=== PATIENT | female | born 1935 | race Caucasian/White ===

== ENCOUNTER → 2017-09-17 | Outpatient (CLI) | payer MEDICARE, BC | END | disposition home or self-care (01) | LOC: RADMAMWWP 16:36 | PROVIDERS: ATTEND Family Medicine | DX: Z53.9 Procedure and treatment not carried out, unspecified reason (principal) ==

== ENCOUNTER → 2017-10-29 | Outpatient (CLI) | payer MEDICARE, BC ==
--- NOTE | 2017-11-01 11:46 | MM ---
Reason for exam: screening (asymptomatic). Last mammogram was performed 2 years ago. History: Patient is postmenopausal. Family history of breast cancer in daughter at age 49. Physical Findings: A clinical breast exam by your physician is recommended on an annual basis and results should be correlated with mammographic findings. MG 3D Screening Mammo W/Cad Bilateral CC and MLO view(s) were taken. Prior study comparison: November 05, 2015, mammogram, performed at [facility]. April 11, 2014, mammogram, performed at [facility]. There are scattered fibroglandular densities. Nodular density upper outer left breast 6cm from nipple. ASSESSMENT: Incomplete: need additional imaging evaluation, BI-RAD 0 RECOMMENDATION: Special view mammogram of the left breast. If lesion persists on supplemental views, image directed ultrasound is recommended. [facility] will attempt to contact patient to return for supplemental views and ultrasound if indicated.
== END | disposition home or self-care (01) ==
LOC: RADMAMWWP 12:56
PROVIDERS: ATTEND Family Medicine
DX: Z12.31 Encounter for screening mammogram for malignant neoplasm of breast (principal)
CPT/HCPCS: 77063; 77067

== ENCOUNTER → 2017-11-04 | Outpatient (CLI) | payer MEDICARE, BC ==
--- NOTE | 2017-11-04 15:00 | MM ---
Reason for exam: additional evaluation requested from abnormal screening. Last mammogram was performed less than 1 month ago. History: Patient is postmenopausal. Family history of breast cancer in daughter at age 49. Physical Findings: Nurse did not find any significant physical abnormalities on exam. MG 3D Work Up W/Cad LT Spot compression CC, spot compression MLO, and ML view(s) were taken of the left breast. Prior study comparison: October 29, 2017, bilateral MG 3d screening mammo w/cad. November 05, 2015, mammogram, performed at [facility]. There are scattered fibroglandular densities. No persistent suspicious density on compression in ML views. No significant new findings when compared with previous films. These results were verbally communicated with the patient and result sheet given to the patient on 11/04/17. ASSESSMENT: Benign, BI-RAD 2 RECOMMENDATION: Return to routine screening mammogram schedule for both breasts.
== END | disposition home or self-care (01) ==
LOC: RADMAMWWP 12:42
PROVIDERS: ATTEND Family Medicine
DX: R92.8 Other abnormal and inconclusive findings on diagnostic imaging of breast (principal)
CPT/HCPCS: 77065; G0279

== ENCOUNTER → 2019-01-02 | Outpatient (CLI) | payer MEDICARE, BC ==
--- NOTE | 2019-01-03 09:29 | MM ---
Reason for exam: screening (asymptomatic). Last mammogram was performed 1 year and 2 months ago. History: Patient is postmenopausal. Family history of breast cancer in daughter at age 49. Physical Findings: A clinical breast exam by your physician is recommended on an annual basis and results should be correlated with mammographic findings. MG 3D Screening Mammo W/Cad Bilateral CC and MLO view(s) were taken. Prior study comparison: November 04, 2017, left breast MG 3d work up w/cad LT. October 29, 2017, bilateral MG 3d screening mammo w/cad. The breast tissue is heterogeneously dense. This may lower the sensitivity of mammography. Stable vascular calcifications. There is no discrete abnormality. No significant changes when compared with prior studies. ASSESSMENT: Benign, BI-RAD 2 RECOMMENDATION: Routine screening mammogram of both breasts in 1 year.
== END | disposition home or self-care (01) ==
LOC: RADMAMWWP 14:11
PROVIDERS: ATTEND Family Medicine
DX: Z12.31 Encounter for screening mammogram for malignant neoplasm of breast (principal)
CPT/HCPCS: 77063; 77067

== ENCOUNTER 2020-08-22 14:07 | Inpatient (IN) | payer MEDICARE, BC ==
[2020-08-22] MEDS ORDERED: HYDROmorphone 0.5 MG/0.5 ML SYRINGE IVP STA ×2 (14:30→16:15)
[2020-08-22] MEDS ORDERED: ONDANSETRON 4 MG/2 ML VIAL IVP STA (14:30)
--- NOTE | 2020-08-22 14:34 | ED ---
General Adult HPI - General Chief complaint: Fall Stated complaint: Fall/Hip Fracture Time Seen by Provider: 08/22/20 14:12 Source: patient, EMS, RN notes reviewed Mode of arrival: EMS Limitations: no limitations - History of Present Illness Initial comments: 85-year-old female without significant past medical history presents to the emergency room for a chief complaint of fall. Patient tripped over the edge of a rug and fell onto her right side. Patient does not recall hitting her head and denies neck pain but is in a c-collar. Patient is complaining of right upper leg and right upper arm pain. States she cannot move her arm or leg secondary to this pain. Patient denies any back pain.Patient has no other complaints at this time including shortness of breath, chest pain, abdominal pain, nausea or vomiting, headache, or visual changes. - Related Data Home Medications Medication Instructions Recorded Confirmed ALPRAZolam [Xanax] 0.5 mg PO HS 08/22/20 08/22/20 Ascorbic Acid [Vitamin C] 1,000 mg PO HS 08/22/20 08/22/20 Aspirin EC [Ecotrin Low Dose] 81 mg PO HS 08/22/20 08/22/20 Calcium Carbonate [Calcium] 600 mg PO HS 08/22/20 08/22/20 NIFEdipine XL [Procardia Xl] 30 mg PO HS 08/22/20 08/22/20 [place]-3 Fatty Acids/Fish Oil [Fish 1 cap PO HS 08/22/20 08/22/20 Oil 1,000 mg Softgel] Omeprazole 20 mg PO HS 08/22/20 08/22/20 Simvastatin [Zocor] 20 mg PO HS 08/22/20 08/22/20 Allergies Allergy/AdvReac Type Severity Reaction Status Date / Time No Known Allergies Allergy Verified 08/22/20 16:08 Review of Systems ROS Statement: Those systems with pertinent positive or pertinent negative responses have been documented in the HPI. ROS Other: All systems not noted in ROS Statement are negative. Past Medical History Past Medical History: No Reported History Additional Past Surgical History / Comment(s): R/L eye cataract surgery Smoking Status: Never smoker Past Alcohol Use History: None Reported Past Drug Use History: None Reported General Exam - General Exam Comments Initial Comments: Right upper extremity: Patient unable to move shoulder secondary to pain but is able to move all digits of the right hand. Tenderness noted to the mid humeral area. Radial pulse 2+, capillary refill less than 2 seconds. Sensation intact. Right lower extremity: Patient has externally rotated shortened right leg, DP pulse 2+, capillary refill less than 2 seconds, sensation intact right lower extremity. Patient unable to move right hip secondary to pain. She is able to move all digits. Limitations: no limitations General appearance: alert, in no apparent distress Head exam: Present: atraumatic, normocephalic, normal inspection Eye exam: Present: normal appearance, PERRL, EOMI. Absent: scleral icterus, conjunctival injection, periorbital swelling ENT exam: Present: normal exam, mucous membranes moist Neck exam: Present: normal inspection. Absent: tenderness, meningismus, lymphadenopathy Respiratory exam: Present: normal lung sounds bilaterally. Absent: respiratory distress, wheezes, rales, rhonchi, stridor Cardiovascular Exam: Present: regular rate, normal rhythm, normal heart sounds. Absent: systolic murmur, diastolic murmur, rubs, gallop, clicks GI/Abdominal exam: Present: soft, normal bowel sounds. Absent: distended, tenderness, guarding, rebound, rigid Neurological exam: Present: alert, oriented X3, other (GCS 15) Course Vital Signs 08/22/20 08/22/20 14:17 15:22 Temperature 97.1 F L Pulse Rate 60 Respiratory 16 18 Rate Blood Pressure 139/67 O2 Sat by Pulse 97 Oximetry Medical Decision Making - Medical Decision Making Vitals stable. She complains of pain in the right hip and shoulder. Obvious deformities noted on exam. Neurovascular status intact. CT brain shows no acute intercranial hemorrhage or shift. CT cervical spine shows no acute fracture or dislocation. C-spine was cleared. X-ray of the right shoulder shows acute comminuted minimally displaced fracture surgical neck right proximal humerus with glenohumeral joint dislocation. Hip and pelvis x-ray show acute displaced impacted intertrochanteric fracture right proximal femur. Chest x-ray shows no evident pneumothorax or pleural effusion. Labs were added as well as EKG. I discussed this case with miles MIGUEL who accepts admission under Dr. Silva. Rest nothing by mouth after midnight and Duran catheter initiation. Requests CT of the shoulder. I did change this order to the right shoulder. Requests medical consult for clearance. CBC CMP unremarkable. White cell count of 15 is likely reactive. - Lab Data Result diagrams: 08/22/20 16:09 08/22/20 16:09 Lab Results 08/22/20 08/22/20 08/22/20 Range/Units 16:09 16:09 16:23 WBC 15.0 H (3.8-10.6) k/uL RBC 4.31 (3.80-5.40) m/uL Hgb 12.6 (11.4-16.0) gm/dL Hct 40.3 (34.0-46.0) % MCV 93.5 (80.0-100.0) fL MCH 29.3 (25.0-35.0) pg MCHC 31.4 (31.0-37.0) g/dL RDW 13.7 (11.5-15.5) % Plt Count 297 (150-450) k/uL MPV 8.6 Neutrophils % 86 % Lymphocytes % 10 % Monocytes % 3 % Eosinophils % 1 % Basophils % 0 % Neutrophils # 12.8 H (1.3-7.7) k/uL Lymphocytes # 1.5 (1.0-4.8) k/uL Monocytes # 0.5 (0-1.0) k/uL Eosinophils # 0.1 (0-0.7) k/uL Basophils # 0.0 (0-0.2) k/uL PT 10.0 (9.0-12.0) sec INR 1.0 (<1.2) APTT 23.0 (22.0-30.0) sec Sodium 137 (137-145) mmol/L Potassium 4.3 (3.5-5.1) mmol/L Chloride 107 (98-107) mmol/L Carbon Dioxide 20 L (22-30) mmol/L Anion Gap 10 mmol/L BUN 13 (7-17) mg/dL Creatinine 0.53 (0.52-1.04) mg/dL Est GFR (CKD-EPI)AfAm >90 (>60 ml/min/1.73 sqM) Est GFR (CKD-EPI)NonAf 86 (>60 ml/min/1.73 sqM) Glucose 138 H (74-99) mg/dL Calcium 9.2 (8.4-10.2) mg/dL Total Bilirubin 0.6 (0.2-1.3) mg/dL AST 26 (14-36) U/L ALT 13 (4-34) U/L Alkaline Phosphatase 127 H (38-126) U/L Total Protein 6.8 (6.3-8.2) g/dL Albumin 3.9 (3.5-5.0) g/dL Disposition Clinical Impression: Hip fracture, Shoulder fracture, Shoulder dislocation Disposition: ADMITTED IP TO THIS HOSP Is patient prescribed a controlled substance at d/c from ED?: No Referrals: China Ramírez MD [Primary Care Provider] - 1-2 days Time of Disposition: 16:47
--- NOTE | 2020-08-22 15:39 | XR ---
EXAMINATION TYPE: XR Hip RT and AP Pelvis, XR femur RT DATE OF EXAM: 08/22/2020 COMPARISON: NONE HISTORY: Fall injury with pain. TECHNIQUE: A single AP view of the pelvis is obtained. Two views of the right hip and femur are obtai ortiz. FINDINGS: [place] osseous structures are demineralized. There is acute comminuted impacted displaced i ntertrochanteric fracture of the right proximal femur. Large fracture fragment involving the lesser t rochanter is noted. No additional acute fracture or dislocation is seen distally. Incidental tricompa rtment degenerative changes in the right knee with severe medial narrowing. Hip joints show moderate axial joint space loss bilaterally. No dislocation. Scattered bilateral pelv ic phleboliths. Pubic symphysis is intact. Sacroiliac joints are preserved. IMPRESSION: There is acute displaced impacted intertrochanteric fracture right proximal femur. (Initial encounter closed type posttraumatic fracture)
--- NOTE | 2020-08-22 15:42 | XR ---
EXAMINATION TYPE: XR chest 1V portable DATE OF EXAM: 08/22/2020 COMPARISON: None HISTORY: Cough, trauma TECHNIQUE: Single frontal view of the chest is obtained. FINDINGS: Patient is rotated. Exam is expiratory. Retrocardiac lucency suggestive of partial intrath oracic stomach. Aorta is dense. Heart size is likely normal. No evident pneumothorax or pleural effus ion. Fracture or dislocation is present in the right shoulder. IMPRESSION: Expiratory rotated exam. Fracture dislocation of the right shoulder. Hiatal hernia.
--- NOTE | 2020-08-22 15:42 | XR ---
EXAMINATION TYPE: XR humerus RT DATE OF EXAM: 08/22/2020 CLINICAL HISTORY: Pain after fall injury today. TECHNIQUE: Two views of the right humerus are attempted. COMPARISON: None. FINDINGS: [place] osseous structures are demineralized. There is acute comminuted slightly displaced fracture through the surgical neck right proximal humerus. There is glenohumeral joint dislocation. The acromioclavicular joint is maintained. Visualized ribs are intact. Overlying blanket material is present. IMPRESSION: There is acute comminuted minimally displaced fracture surgical neck right proximal humer us. There is glenohumeral joint dislocation noted.
--- NOTE | 2020-08-22 15:45 | CT ---
EXAMINATION TYPE: CT brain stevanine wo con DATE OF EXAM: 08/22/2020 COMPARISON: NONE HISTORY: Fall injury with headache and neck pain. CT DLP: 1248 mGycm. Automated Exposure Control for Dose Reduction was Utilized. TECHNIQUE: CT scan of the head and cervical spine are performed without contrast. FINDINGS: There is no acute intracranial hemorrhage or midline shift identified. [id number] D iffuse ventricular and sulcal prominence. Mild to moderate Low attenuation in the deep and periventri cular white matter. The calvarium is intact. The globes are intact and the visualized sinuses are ac ar. Cervical spine is visualized in its entirety from C1 through upper thoracic levels and demonstrates s atisfactory alignment without evidence of acute fracture or dislocation. Prevertebral soft tissue ap pears within normal limits. The C1-C2 articulation is within normal limits on the coronal images. Os seous structures are demineralized. Moderate disc space narrowing C5-C6 and C6-C7 levels. Vertebral b [place] are maintained. Spinal canal grossly preserved. Thyroid gland felt within normal limits. Lung apices show no pneumothorax. IMPRESSION: 1. There is no acute fracture or dislocation evident in the cervical spine. 2. No acute intracranial hemorrhage or midline shift is seen.
[2020-08-22 16:26] LABS: ALT 13 U/L (4-34); AST 26 U/L (14-36); African American GFR (CKD) >90 (>60 ml/min/1.73 sqM); Albumin 3.9 g/dL (3.5-5.0); Alkaline Phosphatase 127 U/L (38-126); Anion Gap 10 mmol/L; Basophils % (A) 0 %; Blood Urea Nitrogen 13 mg/dL (7-17); Calcium 9.2 mg/dL (8.4-10.2); Carbon Dioxide 20 mmol/L (22-30); Chloride 107 mmol/L (98-107); Eosinophils # (A) 0.1 k/uL (0-0.7); Eosinophils % (A) 1 %; Glucose 138 mg/dL (74-99); HCT 40.3 % (34.0-46.0); HGB 12.6 gm/dL (11.4-16.0); Lymphocytes # (A) 1.5 k/uL (1.0-4.8); Lymphocytes % (A) 10 %; MCH 29.3 pg (25.0-35.0); MCHC 31.4 g/dL (31.0-37.0); MCV 93.5 fL (80.0-100.0); Mean Platelet Volume 8.6; Monocytes # (A) 0.5 k/uL (0-1.0); Monocytes % (A) 3 %; Neutrophils # (A) 12.8 k/uL (1.3-7.7); Neutrophils % (A) 86 %; Non-African American GFR(CKD) 86 (>60 ml/min/1.73 sqM); Platelet Count 297 k/uL (150-450); Potassium 4.3 mmol/L (3.5-5.1); RBC 4.31 m/uL (3.80-5.40); RDW 13.7 % (11.5-15.5); Sodium 137 mmol/L (137-145); Total Bilirubin 0.6 mg/dL (0.2-1.3); Total Protein 6.8 g/dL (6.3-8.2)
[2020-08-22] MEDS ORDERED: NALOXONE 0.4 MG/ML 1 ML VIAL IV PRN (16:27)
[2020-08-22] MEDS ORDERED: ONDANSETRON 4 MG/2 ML VIAL IVP PRN (16:27)
[2020-08-22] MEDS: SODIUM CHLORIDE 0.9% 1,000 ML IV SCH (16:46)
--- NOTE | 2020-08-22 17:33 | CT ---
EXAMINATION TYPE: CT shoulder RT wo con DATE OF EXAM: 08/22/2020 COMPARISON: None HISTORY: RIGHT SHOULDER FX/DISLOCATION CT DLP: 305.2 mGycm Automated exposure control for dose reduction was used. Images were obtained from the base of the neck to the mid shaft of the humerus without contrast. There is impacted comminuted humeral neck fracture. There is anterior dislocation of the humeral head . The scapula appears intact. The AC joint is anatomic. The visualized right ribs appear intact. Ther e is 3 x 1.5 cm fluid collection superior to the humeral head that could be small hematoma. IMPRESSION: There is anterior inferior fracture dislocation of the humeral head. Small hematoma or joint effusion .
[2020-08-22] MEDS: HYDROmorphone 0.5 MG/0.5 ML SYRINGE IVP PRN ×2 (18:32→22:46)
[2020-08-23] MEDS: HYDROmorphone 0.5 MG/0.5 ML SYRINGE IVP PRN ×4 (01:55→13:51)
[2020-08-23] MEDS: SODIUM CHLORIDE 0.9% 1,000 ML IV SCH ×3 (05:46→21:53)
[2020-08-23 10:04] LABS: Basophils % (A) 0 %; Eosinophils % (A) 0 %; HCT 32.9 % (34.0-46.0); HGB 10.7 gm/dL (11.4-16.0); Lymphocytes # (A) 1.9 k/uL (1.0-4.8); Lymphocytes % (A) 16 %; MCH 31.1 pg (25.0-35.0); MCHC 32.6 g/dL (31.0-37.0); MCV 95.4 fL (80.0-100.0); Mean Platelet Volume 8.2; Monocytes # (A) 0.6 k/uL (0-1.0); Monocytes % (A) 6 %; Neutrophils # (A) 8.9 k/uL (1.3-7.7); Neutrophils % (A) 76 %; Platelet Count 230 k/uL (150-450); RBC 3.45 m/uL (3.80-5.40); RDW 13.5 % (11.5-15.5); WBC 11.6 k/uL (3.8-10.6)
[2020-08-23] MEDS ORDERED: ATORVASTATIN 20 MG TAB PO STA ×2 (10:13)
--- NOTE | 2020-08-23 10:51 | P.HPOR ---
History of Present Illness H&P Date: 08/23/20 Chief Complaint: Displaced and comminuted right intertrochanteric femur fracture Patient is an 85-year-old female who presented to [facility] yesterday after sustaining a fall. Patient was ambulating in her own home, she tripped over a rug and fell directly onto the right side. She was unable to weight-bear, EMS to bring the patient to the hospital. Upon arrival to the hospital, imaging and lab tests were done. Images demonstrated a displaced and comminuted right intertrochanteric femur fracture along with a displaced and comminuted right proximal humerus fracture with glenohumeral joint dislocation. I discussed the case with my attending Dr. Tejas valero and then discussed with the emergency room staff. Patient was admitted under our care with plan for surgical intervention. A computed tomography scan of the right shoulder was obtained. Patient was made nothing by mouth last night along with preop labs. Patient was evaluated today at bedside, she is resting comfortably given the circumstances. She notes most of discomfort in the shoulder and in the right lower extremity when she moves. She's having no acute pain involving the cervical, thoracic or lumbar spine. She denies any pain of the left upper extremity and the left lower extremity. She denies any paresthesias of the bilateral upper or lower extremities. She has no headaches, lightheadedness, chest pain, shortness of breath, fever, chills, nausea or vomiting. Patient is very independent her age, she does utilize a cane when ambulating. She does live alone, she continues to drive on a daily basis. Review of Systems Constitutional: Reports as per HPI Past Medical History Past Medical History: No Reported History History of Any Multi-Drug Resistant Organisms: None Reported Additional Past Surgical History / Comment(s): R/L eye cataract surgery Smoking Status: Never smoker Past Alcohol Use History: None Reported Past Drug Use History: None Reported Medications and Allergies Home Medications Medication Instructions Recorded Confirmed Type ALPRAZolam [Xanax] 0.5 mg PO HS 08/22/20 08/22/20 History Ascorbic Acid [Vitamin C] 1,000 mg PO HS 08/22/20 08/22/20 History Aspirin EC [Ecotrin Low Dose] 81 mg PO HS 08/22/20 08/22/20 History Calcium Carbonate [Calcium] 600 mg PO HS 08/22/20 08/22/20 History NIFEdipine XL [Procardia Xl] 30 mg PO HS 08/22/20 08/22/20 History [place]-3 Fatty Acids/Fish Oil [Fish 1 cap PO HS 08/22/20 08/22/20 History Oil 1,000 mg Softgel] Omeprazole 20 mg PO HS 08/22/20 08/22/20 History Simvastatin [Zocor] 20 mg PO HS 08/22/20 08/22/20 History Allergies Allergy/AdvReac Type Severity Reaction Status Date / Time No Known Allergies Allergy Verified 08/22/20 16:08 Physical Examination Right lower extremity: No obvious open lesions or sores are visualized throughout the extremity, no significant areas of erythema or soft tissue swelling There is obvious shortening along with external rotation and flexion at the knee and right lower extremity was compared to the contralateral side Logroll maneuver reproduces significant pain, she is unable to straight leg raise Strength testing was not assessed lower extremity Plantar flexion, dorsiflexion, EHL, FHL are intact. The calf is soft, there is no tenderness with palpation, dorsalis pedis pulses 2+ Right upper extremity: Obvious soft tissue swelling and bruising noted throughout the anterior aspect of the shoulder which does trend down into the arm along the medial side There are no open lesions visualized Range of motion was not assessed of the right shoulder or elbow She is able to extend and flex the wrist with minimal difficulty, she go all the fingers and make a fist Her sensory exam light touch throughout the extremity is intact Her radial and ulnar pulses are 2+ Results - Labs Labs: Abnormal Lab Results - Last 24 Hours (Table) 08/22/20 08/22/20 08/23/20 Range/Units 16:09 16:09 09:43 WBC 15.0 H 11.6 H (3.8-10.6) k/uL RBC 3.45 L (3.80-5.40) m/uL Hgb 10.7 L (11.4-16.0) gm/dL Hct 32.9 L (34.0-46.0) % Neutrophils # 12.8 H 8.9 H (1.3-7.7) k/uL Carbon Dioxide 20 L (22-30) mmol/L Glucose 138 H (74-99) mg/dL Alkaline Phosphatase 127 H (38-126) U/L H & H 08/22/20 08/23/20 Range/Units 16:09 09:43 Hgb 12.6 10.7 L (11.4-16.0) gm/dL Hct 40.3 32.9 L (34.0-46.0) % Coagulation 08/22/20 Range/Units 16:23 INR 1.0 (<1.2) Result Diagrams: 08/23/20 09:43 08/22/20 16:09 - Diagnostic results Shoulder x-ray: report reviewed, image reviewed Shoulder CT: report reviewed (Images reviewed of the shoulder, this including x- rays and computed tomography scan. Images demonstrated a four-part displaced proximal humerus fracture with glenoid humeral joint dislocation. X-rays of the right hip do demonstrate a displaced and comminuted right intertrochanteric femur fracture.), image reviewed Hip x-ray: report reviewed, image reviewed Assessment and Plan Assessment: Comminuted and displaced right intertrochanteric femur fracture Comminuted and displaced right proximal humerus fracture with glenohumeral joint dislocation Status post fall from standing Plan: I was able to discuss the case, including with physical exam findings and imaging studies my attending Dr. Silva. Plan is to proceed with surgical intervention, more specifically a long intramedullary nail right femur. We will also attempt a closed reduction of the right shoulder with C-arm assistance while the patient is under anesthesia. I did discuss the patient the treatment options for both the right femur fracture and a right humerus fracture. She is in good understanding that there may be more required surgery for the right upper extremity if the joint does not relocate properly. Even with a proper reduction, there may be need for further surgery of the right shoulder depending on the patient's symptoms. At this time we will first focused on the fracture of the right femur. Risk and benefits of the procedure involving the right femur were discussed at bedside today, this to include but not exclude infection, blood loss, neurovascular injury, developmental blood clots, and adequate healing of bone, need for further surgery, pain and stiffness patient is in good understanding like to proceed Continue nothing by mouth at this time Pain control, continue supportive oral and IV medication as needed DVT prophylaxis,subcutaneous medication after surgery Nonweightbearing at this time Medical recommendations Physical therapy evaluation after surgery Arm sling for the right upper extremity at this time and after surgery Further recommendations to follow Time with Patient: Less than 30
--- NOTE | 2020-08-23 11:33 | P.CONS ---
History of Present Illness - Reason for Consult Consult date: 08/23/20 Medical management Requesting physician: Hunter Silva - History of Present Illness This is an 85-year-old female patient of Dr. Ramírez. Patient presented to the ER after sustaining a fall. Patient reports she tripped over a rug and likely her son was home and was able to call EMS for assistance. Upon arrival is on patient had displaced impacted intertrochanteric fracture of the right femur and acute community minimally displaced fracture of the surgical neck right proximal humerus. Patient has been admitted to orthopedic services and plans for surgical intervention today. Patient has a past medical history of GERD, hyperlipidemia and patient reports she had elevated heart rate and when she was started on Procardia and follows regularly with cardiology services denies any history of atrial fibrillation, OH, CVA, COPD or asthma. Cardiac he services have been consulted for medical clearance prior to surgery. Patient's white blood cell also elevated on admit 15.0. This is likely reactive to the fracture. Patient denies any acute complaints. Afebrile. Chest x-ray was completed showing expiratory rotated exam no evident pneumothorax or pleural effusion. Will order UA to rule out any infection. White blood cell improving to 11.0. Upon exam patient does complain of discomfort to right hip and shoulder. Patient denies any chest pain or shortness of breath. Patient denies nausea vomiting or diarrhea. Patient denies any urinary burning or frequency. Review of Systems please refer to HPI otherwise unremarkable Past Medical History Past Medical History: No Reported History History of Any Multi-Drug Resistant Organisms: None Reported Additional Past Surgical History / Comment(s): R/L eye cataract surgery Smoking Status: Never smoker Past Alcohol Use History: None Reported Past Drug Use History: None Reported Medications and Allergies Home Medications Medication Instructions Recorded Confirmed Type ALPRAZolam [Xanax] 0.5 mg PO HS 08/22/20 08/22/20 History Ascorbic Acid [Vitamin C] 1,000 mg PO HS 08/22/20 08/22/20 History Aspirin EC [Ecotrin Low Dose] 81 mg PO HS 08/22/20 08/22/20 History Calcium Carbonate [Calcium] 600 mg PO HS 08/22/20 08/22/20 History NIFEdipine XL [Procardia Xl] 30 mg PO HS 08/22/20 08/22/20 History [place]-3 Fatty Acids/Fish Oil [Fish 1 cap PO HS 08/22/20 08/22/20 History Oil 1,000 mg Softgel] Omeprazole 20 mg PO HS 08/22/20 08/22/20 History Simvastatin [Zocor] 20 mg PO HS 08/22/20 08/22/20 History Allergies Allergy/AdvReac Type Severity Reaction Status Date / Time No Known Allergies Allergy Verified 08/22/20 16:08 Physical Exam Vitals: Vital Signs Temp Pulse Pulse Resp BP BP Pulse Ox 08/23/20 05:21 97.5 F L 72 16 120/65 94 L 08/23/20 00:00 16 08/22/20 22:13 97.3 F L 64 16 134/81 94 L 08/22/20 18:00 61 18 167/72 100 08/22/20 17:00 61 18 166/74 100 08/22/20 16:00 18 08/22/20 15:22 18 08/22/20 14:17 97.1 F L 60 16 139/67 97 Intake and Output 08/22/20 08/23/20 08/23/20 22:59 06:59 14:59 Intake Total 1340 Output Total 300 500 Balance -300 840 Intake: Intake, IV Titration 800 Amount Sodium Chloride 0.9% 1, 800 000 ml @ 100 mls/hr IV . Q10H COUNTS INCLUDE 234 BEDS AT THE [facility] Rx#:[id number] Oral 540 Output: Urine 300 500 Uretheral (Duran) 300 500 Other: Voiding Method Indwelling Catheter Indwelling Catheter Weight 61.781 kg Head normocephalic Neck supple Lungs clear to auscultation bilaterally no wheezing or crackles Heart regular rate and rhythm S1-S2, no rub or gallop Abdomen is soft nontender nondistended positive bowel sounds no hepatosplenomegaly Extremities no edema Neuro alert and orientated to 3 Results CBC & Chem 7: 08/23/20 09:43 08/22/20 16:09 Labs: Abnormal Lab Results - Last 24 Hours (Table) 08/22/20 08/22/20 08/23/20 Range/Units 16:09 16:09 09:43 WBC 15.0 H 11.6 H (3.8-10.6) k/uL RBC 3.45 L (3.80-5.40) m/uL Hgb 10.7 L (11.4-16.0) gm/dL Hct 32.9 L (34.0-46.0) % Neutrophils # 12.8 H 8.9 H (1.3-7.7) k/uL Carbon Dioxide 20 L (22-30) mmol/L Glucose 138 H (74-99) mg/dL Alkaline Phosphatase 127 H (38-126) U/L Assessment and Plan Assessment: 1. Status post fall with right hip fracture. Plans for surgical intervention today per orthopedic services 2. Fracture of the right humerus and dislocation of right shoulder. Orthopedic services are following 3. History of elevated heart rate. Patient is maintained on Procardia. Cardiology services have been consulted for cardiac clearance 4. History of hyperlipidemia. Maintained on statin 5. History of GERD maintained on Protonix 6. Elevated white blood cell. White blood cell on admit 15.5 this is likely reactive. Patient denies any acute complaints. Chest x-ray has been completed. UA ordered. With blood cell improving to 11.0. Afebrile Thank you for this consultation we'll continue to follow patient closely throughout stay Cardiology services have been consulted for cardiac clearance Time with Patient: Greater than 30 (Greater than 60% of the total time spent in counseling and coordination of care)
--- NOTE | 2020-08-23 11:50 | P.CRDCN ---
History of Present Illness Consult date: 08/23/20 History of present illness: CHIEF COMPLAINT: Cardiac clearance HISTORY OF PRESENT ILLNESS: This is a 85-year old female with a past medical history significant for GERD, hypertension, and hyperlipidemia, Patient follows in the office with Dr. Vicente. We have been asked to see the patient in consultation for cardiac clearance. Patient presented to the hospital after she sustained a fall at home. She was diagnosed with a right hip fracture. She is scheduled to undergo surgical intervention today with orthopedics. Patient examined this morning at the bedside. She denies chest pain or pressure. She denies shortness of breath. Denies dizziness or lightheadedness. Patient states she is able to lay flat without any shortness of breath. She had an echocardiogram completed in the office on 07/30/2020 revealing ejection fraction of 55%, moderate aortic regurgitation, moderate mitral regurgitation, and moderate tricuspid regurgitation. DIAGNOSTICS: EKG reveals sinus bradycardia with T-wave inversions in inferior leads Chest xray fracture dislocation of the right shoulder. Hiatal hernia. Laboratory data: CBC 11.6. Hemoglobin 10.7. Platelet count 230. Sodium 137. Potassium 4.3. BUN 13. Creatinine 0.53. Current home cardiac medications include atorvastatin 10 mg daily, Procardia 30 mg daily, and aspirin 81 mg daily REVIEW OF SYSTEMS: At the time of my exam: CONSTITUTIONAL: Denies fever or chills. HEENT: Denies blurred vision, vision changes, or eye pain. Denies hemoptysis CARDIOVASCULAR: Denies chest pain, orthopnea, PND or palpitations RESPIRATORY: No shortness of breath. GASTROINTESTINAL: Denies abdominal pain. Denies nausea or vomiting. HEMATOLOGIC: Denies bleeding disorders. GENITOURINARY: Denies any blood in urine. SKIN: Denies pruitis. Denies rash. PHYSICAL EXAM: VITAL SIGNS: Reviewed. GENERAL: Well-developed in no acute distress. HEENT: Head is normocephalic. Pupils are equal, round. Sclerae anicteric. Mucous membranes of the mouth are moist. Neck supple. No JVD or thyromegaly LUNGS: Respirations even and unlabored. Lungs essentially clear to auscultation bilaterally. HEART: Regular rate and rhythm. S1 and S2 heard. Systolic murmur noted ABDOMEN: Soft. Nondistended. Nontender. EXTREMITIES: No clubbing or cyanosis. Peripheral pulses intact. No lower extremity edema NEUROLOGIC: Awake and alert. Oriented x 3. ASSESSMENT: Right hip fracture, status post fall Right humerus fracture and right shoulder dislocation Valvular heart disease: Moderate aortic regurgitation, moderate mitral regurgitation, and moderate tricuspid regurgitation Hypertension Hyperlipidemia GERD PLAN: Recent echocardiogram completed on an outpatient basis reviewed Increase atorvastatin to 20mg daily. Give dose now prior to surgery Discontinue Procardia Begin Norvasc 5 mg daily Patient has no symptoms of angina and has no evidence of congestive heart failure. She has no absolute contraindications to undergo surgery today with orthopedics for her hip fracture. Nurse practitioner note has been reviewed by physician. Signing provider agrees with the documented findings, assessment, and plan of care. Past Medical History Past Medical History: No Reported History History of Any Multi-Drug Resistant Organisms: None Reported Additional Past Surgical History / Comment(s): R/L eye cataract surgery Smoking Status: Never smoker Past Alcohol Use History: None Reported Past Drug Use History: None Reported Medications and Allergies Home Medications Medication Instructions Recorded Confirmed Type ALPRAZolam [Xanax] 0.5 mg PO HS 08/22/20 08/22/20 History Ascorbic Acid [Vitamin C] 1,000 mg PO HS 08/22/20 08/22/20 History Aspirin EC [Ecotrin Low Dose] 81 mg PO HS 08/22/20 08/22/20 History Calcium Carbonate [Calcium] 600 mg PO HS 08/22/20 08/22/20 History NIFEdipine XL [Procardia Xl] 30 mg PO HS 08/22/20 08/22/20 History [place]-3 Fatty Acids/Fish Oil [Fish 1 cap PO HS 08/22/20 08/22/20 History Oil 1,000 mg Softgel] Omeprazole 20 mg PO HS 08/22/20 08/22/20 History Simvastatin [Zocor] 20 mg PO HS 08/22/20 08/22/20 History Allergies Allergy/AdvReac Type Severity Reaction Status Date / Time No Known Allergies Allergy Verified 08/22/20 16:08 Physical Exam Vitals: Vital Signs Temp Pulse Pulse Resp BP BP Pulse Ox 08/23/20 05:21 97.5 F L 72 16 120/65 94 L 08/23/20 00:00 16 08/22/20 22:13 97.3 F L 64 16 134/81 94 L 08/22/20 18:00 61 18 167/72 100 08/22/20 17:00 61 18 166/74 100 08/22/20 16:00 18 08/22/20 15:22 18 08/22/20 14:17 97.1 F L 60 16 139/67 97 Intake and Output 08/22/20 08/23/20 08/23/20 22:59 06:59 14:59 Intake Total 1340 Output Total 300 500 Balance -300 840 Intake: Intake, IV Titration 800 Amount Sodium Chloride 0.9% 1, 800 000 ml @ 100 mls/hr IV . Q10H [facility] Rx#:[id number] Oral 540 Output: Urine 300 500 Uretheral (Duran) 300 500 Other: Voiding Method Indwelling Catheter Indwelling Catheter Weight 61.781 kg Results 08/23/20 09:43 08/22/20 16:09 Cardiac Enzymes 08/22/20 Range/Units 16:09 AST 26 (14-36) U/L Coagulation 08/22/20 Range/Units 16:23 PT 10.0 (9.0-12.0) sec APTT 23.0 (22.0-30.0) sec CBC 08/22/20 08/23/20 Range/Units 16:09 09:43 WBC 15.0 H 11.6 H (3.8-10.6) k/uL RBC 4.31 3.45 L (3.80-5.40) m/uL Hgb 12.6 10.7 L (11.4-16.0) gm/dL Hct 40.3 32.9 L (34.0-46.0) % Plt Count 297 230 (150-450) k/uL Comprehensive Metabolic Panel 08/22/20 Range/Units 16:09 Sodium 137 (137-145) mmol/L Potassium 4.3 (3.5-5.1) mmol/L Chloride 107 (98-107) mmol/L Carbon Dioxide 20 L (22-30) mmol/L BUN 13 (7-17) mg/dL Creatinine 0.53 (0.52-1.04) mg/dL Glucose 138 H (74-99) mg/dL Calcium 9.2 (8.4-10.2) mg/dL AST 26 (14-36) U/L ALT 13 (4-34) U/L Alkaline Phosphatase 127 H (38-126) U/L Total Protein 6.8 (6.3-8.2) g/dL Albumin 3.9 (3.5-5.0) g/dL Current Medications Generic Name Dose Route Start Last Admin Trade Name Freq PRN Reason Stop Dose Admin Alprazolam 0.5 mg 08/23/20 21:00 Alprazolam 0.5 Mg Tab PO HS [facility] Ascorbic Acid 1,000 mg 08/23/20 21:00 Ascorbic Acid 500 Mg Tab PO HS [facility] Aspirin 81 mg 08/23/20 21:00 Aspirin 81 Mg PO HS [facility] Atorvastatin Calcium 20 mg 08/24/20 21:00 Atorvastatin 20 Mg Tab PO HS [facility] Calcium Carbonate/Glycine 500 mg 08/23/20 21:00 Calcium Carbonate 500 Mg Chewable PO HS [facility] Hydromorphone HCl 0.5 mg 08/22/20 16:27 08/23/20 08:59 Hydromorphone 0.5 Mg/0.5 Ml Syringe IVP 0.5 mg Q3HR PRN Administration Moderate Pain Sodium Chloride 1,000 mls @ 100 mls/hr 08/22/20 16:30 08/23/20 05:46 Saline 0.9% IV Not Given .Q10H [facility] Naloxone HCl 0.2 mg 08/22/20 16:27 Naloxone 0.4 Mg/Ml 1 Ml Vial IV Q2M PRN Opioid Reversal Nifedipine 30 mg 08/23/20 21:00 Nifedipine Xl 30 Mg Tab.Er.24 PO HS [facility] Ondansetron HCl 4 mg 08/22/20 16:27 08/22/20 22:53 Ondansetron 4 Mg/2 Ml Vial IVP 4 mg Q8HR PRN Administration Nausea And Vomiting Pantoprazole Sodium 40 mg 08/23/20 21:00 Pantoprazole 40 Mg Tablet PO HS [facility] Intake and Output 08/22/20 08/23/20 08/23/20 22:59 06:59 14:59 Intake Total 1340 Output Total 300 500 Balance -300 840 Intake: Intake, IV Titration 800 Amount Sodium Chloride 0.9% 1, 800 000 ml @ 100 mls/hr IV . Q10H [facility] Rx#:[id number] Oral 540 Output: Urine 300 500 Uretheral (Duran) 300 500 Other: Voiding Method Indwelling Catheter Indwelling Catheter Weight 61.781 kg 08/23/20 09:43 08/22/20 16:09
[2020-08-23 13:33] LABS: Appearance,Urine Cloudy (Clear); Bilirubin,Urine Negative (Negative); Blood,Urine Large (Negative); Color,Urine Yellow; Glucose,Urine (UA) Negative (Negative); Hyaline Casts,Urine 24 /lpf (0-2); Ketones,Urine 2+ (Negative); Leukocyte Esterase,Urine Large (Negative); Mucus,Urine Many /hpf; Nitrite,Urine Negative (Negative); PH, Urine 5.5 (5.0-8.0); Protein,Urine Trace (Negative); RBC,Urine 128 /hpf (0-5); Specific Gravity,Urine 1.022 (1.001-1.035); Urobilinogen,Urine <2.0 mg/dL (<2.0); WBC,Urine 141 /hpf (0-5)
[2020-08-23] MEDS ORDERED: IV FLUID CONTINUATION 900 ML IV ONE (15:31)
[2020-08-23] MEDS ORDERED: DEXAMETHASONE SOD PHOSPHATE 4 MG/ML 1 ML VIAL IVP ONE (16:02)
[2020-08-23] MEDS ORDERED: ONDANSETRON 4 MG/2 ML VIAL IVP ONE (16:02)
[2020-08-23] MEDS ORDERED: ceFAZolin 1,000 MG VIAL ONE (17:50)
[2020-08-23] MEDS ORDERED: SUCCINYLCHOLINE CHLORIDE 100 MG/5 ML SYR IV ONE (17:50)
[2020-08-23] MEDS ORDERED: NEOSTIGMINE 1 MG/ML 10 ML VIAL ONE (17:50)
[2020-08-23] MEDS ORDERED: PROPOFOL 10 MG/ML 20 ML VIAL IV ONE (17:50)
[2020-08-23] MEDS ORDERED: SODIUM CHLORIDE 0.9% 50 ML with ceFAZolin 1,000 MG IV ONE ×2 (17:50)
[2020-08-23] MEDS ORDERED: SODIUM CHLORIDE 0.9% 100 ML BAG ONE (17:50)
[2020-08-23] MEDS ORDERED: GLYCOPYRROLATE 0.2 MG/ML 2 ML VIAL ONE (17:50)
[2020-08-23] MEDS ORDERED: fentaNYL (PF) 50 MCG/ML 2 ML AMP ONE (17:50)
[2020-08-23] MEDS ORDERED: ROCURONIUM 10 MG/ML (10 ML VIAL) IV ONE (17:50)
[2020-08-23 18:51] LABS: Albumin 3.7 g/dL (3.80-4.90); Albumin/Globulin Ratio 2.06 (1.60-3.17); Anion Gap 8.3 mmol/L (4.00-12.00); BUN/Creat Ratio 28.33 Ratio (12.00-20.00); Carbon Dioxide 23.7 mmol/L (21.6-31.8); Globulin 1.8 g/dL (1.6-3.3); Total Bilirubin 0.6 mg/dL (0.3-1.2); Total Protein 5.5 g/dL (6.2-8.2)
[2020-08-23] MEDS ORDERED: ceFAZolin 3,000 MG in SODIUM CHLORIDE 0.9% IRRIGATIO 3,000 ML IRRIGATION ONE (19:15)
[2020-08-23] MEDS ORDERED: LACTATED RINGERS 1,000 ML IV ONE (19:20)
[2020-08-23] MEDS ORDERED: MAGNESIUM HYDROXIDE 2,400 MG/10 ML CUP PO PRN (19:39)
[2020-08-23] MEDS ORDERED: HYDROcodone/APAP 5-325MG 1 EACH TAB PO PRN (19:39)
[2020-08-23] MEDS ORDERED: traMADol 50 MG TAB PO PRN (19:39)
[2020-08-23] MEDS ORDERED: ACETAMINOPHEN TAB 325 MG TAB PO PRN (19:39)
--- NOTE | 2020-08-23 19:39 | P.OP ---
Date of Procedure: 08/23/20 Preoperative Diagnosis: 1) Displaced right 4 part intertrochanteric femur fracture 2) 4 part fracture dislocation right proximal humerus Postoperative Diagnosis: Same Procedure(s) Performed: Trochanteric intramedullary nailing right four-part intertrochanteric femur fracture/closed reduction right four-part proximal humerus fracture/dislocation Implants: Gamma nail, 125, 13 mm x 36 cm, 105 mm compression screw Anesthesia: GETA Surgeon: Hunter Silva Senior Reactor Operator #1: Kiko Jama Estimated Blood Loss (ml): 200 Pathology: none sent Condition: stable Disposition: PACU Indications for Procedure: The patient's an 85-year-old female presents after falling injuring both her right shoulder and hip. Upon evaluation she was noted to have a fracture dislocation involving the right proximal humerus in addition to a comminuted /displaced 4 part right intertrochanteric femur fracture a discussion of the risks and benefits of operative intervention was made with patient and her family. She'll to proceed. Operative risks to include infection, neurovascular injury, development of blood clots, possible development of nonunion, possible development of malunion, possible need for subsequent procedures was discussed. Informed consent was obtained. Operative Findings: As below Description of Procedure: The patient was brought to the operating room, and after induction of general anesthesia was transferred to the Radha table. The right proximal humerus fracture/dislocation was gently reduced with longitudinal traction and manipulation. This is verified with fluoroscopy. A sling was placed. Attention was then paid towards preparing her right intertrochanteric femur fracture. The fracture was reduced with longitudinal traction and internal rotation of the right lower extremity. This is verified with fluoroscopy on the AP and lateral views. The right lower extremity was then prepped and draped in normal fashion. A 10 cm incision was then paid made proximal to the greater trochanter. Skin was incised sharply. Subcu tissues were divided sharply. The fascia was identified and was opened. Dissection was then made down to level the greater trochanter. A starting awl was used and the tip of the greater trochanter. A ball-tipped guidewire was then inserted with the aid of fluoroscopy. The canal was then reamed up to 15 mm. The proximal segment was reamed to 15.5 mm. A 13 mm x 36 cm Gamma trochanteric nail was then gently inserted. This had a 125 angle. The ball-tipped guidewire was removed. The threaded guidepin was then placed into the centercentral portion of the femoral head and neck on the AP and lateral views to within 5 mm the articular surface. A triple reamer was used to a depth of 100 mm. A 105 mm compression screw was inserted with good purchase. The locking screw was then inserted in the proximal portion of the nail. This was loosened one quarter turn to allow for compression. The proximal jig was then removed. Attention was then paid towards the distal locking screws. These were placed using a freehand technique with the aid of fluoroscopy. The appropriate length screws were inserted. Final fluoroscopic view showed adequate reduction of this complex/comminuted four-part intertrochanteric femur fracture with adequate implant placement. The wounds were irrigated normal saline. The fascia was closed with #1 running Vicryl suture. The subcutaneous tissues were reapproximated interrupted 2-0 Vicryl sutures. The skin was reprepped with elham. A sterile dressing was applied. The patient was then awoken from general anesthesia and transferred to recovery room in fair condition. Blood loss was estimated at 200 mL. No complications were incurred. Sponge and needle counts were correct in the case. Vasile MIGUEL assistance during the major components the case to include positioning, fracture reduction, implantation, and closure.
[2020-08-23] MEDS: fentaNYL (PF) 50 MCG/ML 2 ML AMP IVP ONE ×4 (19:46→20:15)
[2020-08-23] MEDS ORDERED: HYDROmorphone 0.5 MG/0.5 ML SYRINGE IVP ONE (20:23)
[2020-08-23] MEDS ORDERED: NIFEdipine XL 30 MG TAB.ER.24 PO SCH (21:00)
[2020-08-23] MEDS ORDERED: ATORVASTATIN 10 MG TAB PO SCH (21:00)
[2020-08-23] MEDS ORDERED: NON FORMULARY DRUG (Omega-3 Fatty Acids/Fish Oil [Fish Oil 1,000 Mg Softgel] 1 EACH Capsul PO SCH (21:00)
[2020-08-23] MEDS: ASPIRIN 81 MG PO SCH (21:52)
[2020-08-23] MEDS: ALPRAZolam 0.5 MG TAB PO SCH (21:52)
[2020-08-23] MEDS: PANTOPRAZOLE 40 MG TABLET PO SCH (21:52)
[2020-08-23] MEDS: ASCORBIC ACID 500 MG TAB PO SCH (21:52)
[2020-08-23] MEDS: SENNOSIDES-DOCUSATE SODIUM 1 EACH TAB PO SCH (21:52)
[2020-08-23] MEDS: CALCIUM CARBONATE 500 MG CHEWABLE PO SCH (21:52)
[2020-08-24] MEDS: HYDROcodone/APAP 5-325MG 1 EACH TAB PO PRN ×2 (06:35→15:38)
[2020-08-24] MEDS: SODIUM CHLORIDE 0.9% 1,000 ML IV SCH ×2 (07:50→17:24)
[2020-08-24 07:57] LABS: Basophils % (A) 0 %; Eosinophils % (A) 0 %; HCT 23.3 % (34.0-46.0); Hypochromasia Slight; Lymphocytes % (A) 12 %; MCH 29.7 pg (25.0-35.0); MCHC 31.1 g/dL (31.0-37.0); MCV 95.5 fL (80.0-100.0); Mean Platelet Volume 8.8; Monocytes # (A) 0.5 k/uL (0-1.0); Monocytes % (A) 6 %; Neutrophils # (A) 7.2 k/uL (1.3-7.7); Platelet Count 179 k/uL (150-450); RBC 2.44 m/uL (3.80-5.40); RDW 14.1 % (11.5-15.5); WBC 8.9 k/uL (3.8-10.6)
[2020-08-24 08:13] LABS: HGB 7.2 gm/dL (11.4-16.0)
[2020-08-24 08:15] LABS: Neutrophils % (A) 81 %
[2020-08-24] MEDS ORDERED: amLODIPine 5 MG TAB PO SCH (09:00)
--- NOTE | 2020-08-24 09:37 | P.PN ---
Subjective Progress Note Date: 08/24/20 Principal diagnosis: Status post IM nail right intertrochanteric femur fracture, closed reduction right shoulder Patient is evaluated today at bedside, she is resting comfortably. Physical therapy was in the room about to get her out of bed and into the chair. The urinary catheter is in place. She states the pain is tolerable at this time. She denies any headaches, lightheadedness, chest pain or shortness of breath. The 1 unit of packed RBCs that I ordered yesterday has not been given yet, hemoglobin did drop into the sevens overnight. This will be given as soon as p ossible today. Plan for recheck of hemoglobin on 08/25/2020. Objective - Vital Signs Vital signs: Vital Signs Temp 97.7 F 08/24/20 05:00 Pulse 87 08/24/20 05:00 Resp 16 08/24/20 05:00 BP 118/66 08/24/20 05:00 Pulse Ox 90 L 08/24/20 05:00 Intake & Output 08/23/20 08/24/20 08/24/20 18:59 06:59 18:59 Intake Total 1750 1191 Output Total 800 Balance 1750 391 Weight 61.781 kg Intake: IV 950 401 Sodium Chloride 0.9% 1, 100 000 ml @ 100 mls/hr IV . Q10H [facility] Rx#:[id number] Intake, IV Titration 800 Amount Sodium Chloride 0.9% 1, 800 000 ml @ 100 mls/hr IV . Q10H [facility] Rx#:[id number] Oral 790 Output: Urine 600 Uretheral (Duran) 300 Estimated Blood Loss 200 Other: Voiding Method Indwelling Catheter Indwelling Catheter - Exam Right upper extremity: Notable soft tissue swelling and bruising appreciated. She's utilizing the arm sling. Minimal external and internal rotation the shoulder reproduces no significant discomfort. Extension and flexion are intact at the wrist, she is able to wiggle all the fingers and make a fist. Range of motion of the elbow was not assessed. Sensation to light touch is intact throughout the extremity. Radial and ulnar pulses are 2+ Right lower extremity: Minimal soft tissue swelling present throughout the extremity. The foam dressings are in place over the 3 incisions, there is a small amount of dried blood on the proximal incision. Her sensation to light touch is intact throughout the extremity. Logroll maneuver reproduces minimal discomfort. Calf is soft, there is no tenderness with palpation. Plantar flexion, dorsiflexion, EHL, FHL are intact. Dorsalis pedis pulses 2+ - Labs CBC & Chem 7: 08/24/20 06:51 08/23/20 09:43 Labs: Abnormal Lab Results - Last 24 Hours (Table) 08/23/20 08/23/20 08/23/20 Range/Units 09:43 09:43 13:00 WBC 11.6 H (3.8-10.6) k/uL RBC 3.45 L (3.80-5.40) m/uL Hgb 10.7 L (11.4-16.0) gm/dL Hct 32.9 L (34.0-46.0) % Neutrophils # 8.9 H (1.3-7.7) k/uL BUN/Creatinine Ratio 28.33 H (12.00-20.00) Ratio Total Protein 5.5 L (6.2-8.2) g/dL Albumin 3.70 L (3.80-4.90) g/dL Urine Appearance Cloudy H (Clear) Urine Protein Trace H (Negative) Urine Ketones 2+ H (Negative) Urine Blood Large H (Negative) Ur Leukocyte Esterase Large H (Negative) Urine RBC 128 H (0-5) /hpf Urine WBC 141 H (0-5) /hpf Hyaline Casts 24 H (0-2) /lpf Urine Mucus Many H (None) /hpf Crossmatch 08/23/20 08/24/20 Range/Units 14:01 06:51 WBC (3.8-10.6) k/uL RBC 2.44 L (3.80-5.40) m/uL Hgb 7.2 L D (11.4-16.0) gm/dL Hct 23.3 L (34.0-46.0) % Neutrophils # (1.3-7.7) k/uL BUN/Creatinine Ratio (12.00-20.00) Ratio Total Protein (6.2-8.2) g/dL Albumin (3.80-4.90) g/dL Urine Appearance (Clear) Urine Protein (Negative) Urine Ketones (Negative) Urine Blood (Negative) Ur Leukocyte Esterase (Negative) Urine RBC (0-5) /hpf Urine WBC (0-5) /hpf Hyaline Casts (0-2) /lpf Urine Mucus (None) /hpf Crossmatch See Detail Microbiology - Last 24 Hours (Table) 08/23/20 13:00 Urine Culture - Preliminary Urine,Voided Assessment and Plan Assessment: Status post IM nail right femur fracture Status post closed reduction right shoulder dislocation, 4 part right proximal humerus fracture Acute blood loss anemia, expected surgical outcome Plan: Pain control, continue use of current medication DVT prophylaxis, continue subcu medication Give 1 unit of blood as soon as possible, recheck hemoglobin on 08/25/2020 Weight-bear as tolerated to right lower extremity, avoid any use of the right upper extremity Monitor bandages, okay daily dressing for 7 days if need be. We'll likely change for discharge Medical recommendations Further recommendations to follow Time with Patient: Less than 30
--- NOTE | 2020-08-24 10:17 | P.PN ---
Subjective Progress Note Date: 08/24/20 Principal diagnosis: Preoperative cardiac assessment This is a pleasant 85-year-old female patient who is known to have hypertension and dyslipidemia and we asked to see the patient yesterday as a consult for preoperative assessment before surgery. The patient diagnosed with right hip fracture and she underwent surgery yesterday. She was seen today. She is asymptomatic from a cardiovascular standpoint overview. Hemodynamically she is slightly hypotensive and because of that M going to decrease the dose of Norvasc to 2.5 mg by mouth daily. Also she is anemic but she is in process of receiving one unit of packed RBC. Objective - Vital Signs Vital signs: Vital Signs Temp 98.3 F 08/24/20 10:10 Pulse 92 08/24/20 10:10 Resp 16 08/24/20 10:10 BP 92/58 08/24/20 10:10 Pulse Ox 96 08/24/20 10:10 Intake & Output 08/23/20 08/24/20 08/24/20 18:59 06:59 18:59 Intake Total 1750 1191 0 Output Total 800 Balance 1750 391 0 Weight 61.781 kg Intake: IV 950 401 Sodium Chloride 0.9% 1, 100 000 ml @ 100 mls/hr IV . Q10H [facility] Rx#:[id number] Intake, IV Titration 800 Amount Sodium Chloride 0.9% 1, 800 000 ml @ 100 mls/hr IV . Q10H [facility] Rx#:[id number] Oral 790 Blood Product 0 Rc Pheresis 2 As3 Unit 0 [id number] Output: Urine 600 Uretheral (Duran) 300 Estimated Blood Loss 200 Other: Voiding Method Indwelling Catheter Indwelling Catheter - Constitutional General appearance: Present: no acute distress - Respiratory Respiratory: bilateral: CTA - Cardiovascular Rhythm: regular Heart sounds: normal: S1, S2 - Labs CBC & Chem 7: 08/24/20 06:51 08/23/20 09:43 Labs: Abnormal Lab Results - Last 24 Hours (Table) 08/23/20 08/23/20 08/23/20 Range/Units 09:43 13:00 14:01 RBC (3.80-5.40) m/uL Hgb (11.4-16.0) gm/dL Hct (34.0-46.0) % BUN/Creatinine Ratio 28.33 H (12.00-20.00) Ratio Total Protein 5.5 L (6.2-8.2) g/dL Albumin 3.70 L (3.80-4.90) g/dL Urine Appearance Cloudy H (Clear) Urine Protein Trace H (Negative) Urine Ketones 2+ H (Negative) Urine Blood Large H (Negative) Ur Leukocyte Esterase Large H (Negative) Urine RBC 128 H (0-5) /hpf Urine WBC 141 H (0-5) /hpf Hyaline Casts 24 H (0-2) /lpf Urine Mucus Many H (None) /hpf Crossmatch See Detail 08/24/20 Range/Units 06:51 RBC 2.44 L (3.80-5.40) m/uL Hgb 7.2 L D (11.4-16.0) gm/dL Hct 23.3 L (34.0-46.0) % BUN/Creatinine Ratio (12.00-20.00) Ratio Total Protein (6.2-8.2) g/dL Albumin (3.80-4.90) g/dL Urine Appearance (Clear) Urine Protein (Negative) Urine Ketones (Negative) Urine Blood (Negative) Ur Leukocyte Esterase (Negative) Urine RBC (0-5) /hpf Urine WBC (0-5) /hpf Hyaline Casts (0-2) /lpf Urine Mucus (None) /hpf Crossmatch Microbiology - Last 24 Hours (Table) 08/23/20 13:00 Urine Culture - Preliminary Urine,Voided Assessment and Plan Assessment: Assessment #1 status post fall with right hip fracture #2 status post right hip surgery #3 right humerus fracture #4 valvular heart disease #5 hypertension #6 anemia Plan #1 decrease the dose of amlodipine #2 blood transfusion #3 monitor the hemoglobin #4 follow-up with the patient
[2020-08-24 12:26] LABS: African American GFR (CKD) 100.9 (60.0-200.0); Albumin 2.8 g/dL (3.80-4.90); Anion Gap 7.2 mmol/L (4.00-12.00); Calcium 7.9 mg/dL (8.7-10.3); Carbon Dioxide 19.8 mmol/L (21.6-31.8); Globulin 1.4 g/dL (1.6-3.3); Potassium 3.9 mmol/L (3.5-5.5); Total Bilirubin 0.5 mg/dL (0.3-1.2); Total Protein 4.2 g/dL (6.2-8.2)
--- NOTE | 2020-08-24 13:43 | P.PN ---
Subjective Progress Note Date: 08/24/20 This is an 85-year-old female patient of Dr. Ramírez. Patient presented to the ER after sustaining a fall. Patient reports she tripped over a rug and likely her son was home and was able to call EMS for assistance. Upon arrival is on patient had displaced impacted intertrochanteric fracture of the right femur and acute community minimally displaced fracture of the surgical neck right proximal humerus. Patient has been admitted to orthopedic services and plans for surgical intervention today. Patient has a past medical history of GERD, hyperlipidemia and patient reports she had elevated heart rate and when she was started on Procardia and follows regularly with cardiology services denies any h istory of atrial fibrillation, [place], CVA, COPD or asthma. Cardiac he services have been consulted for medical clearance prior to surgery. Patient's white blood cell also elevated on admit 15.0. This is likely reactive to the fracture. Patient denies any acute complaints. Afebrile. Chest x-ray was completed showing expiratory rotated exam no evident pneumothorax or pleural effusion. Will order UA to rule out any infection. White blood cell improving to 11.0. Upon exam patient does complain of discomfort to right hip and shoulder. Patient denies any chest pain or shortness of breath. Patient denies nausea vomiting or diarrhea. Patient denies any urinary burning or frequency. On 08/24/2020 patient was seen and examined on the medical floor, she is alert and oriented 3 in no distress, she is complaining of right arm pain otherwise she denies any complaints there is no fever or chills no headache or dizziness no chest pain no shortness of breath no cough no nausea or vomiting no abdominal pain no diarrhea no blood in the stools no burning with urination no frequency or urgency and no hematuria. And dropped to 7.2 this morning, 1 unit of red blood cells has been ordered by orthopedic surgery. Objective - Vital Signs Vital signs: Vital Signs Temp 97.7 F 08/24/20 05:00 Pulse 87 08/24/20 05:00 Resp 16 08/24/20 05:00 BP 118/66 08/24/20 05:00 Pulse Ox 90 L 08/24/20 05:00 Intake & Output 08/23/20 08/24/20 08/24/20 18:59 06:59 18:59 Intake Total 1750 1191 Output Total 800 Balance 1750 391 Weight 61.781 kg Intake: IV 950 401 Sodium Chloride 0.9% 1, 100 000 ml @ 100 mls/hr IV . Q10H [facility] Rx#:[id number] Intake, IV Titration 800 Amount Sodium Chloride 0.9% 1, 800 000 ml @ 100 mls/hr IV . Q10H [facility] Rx#:[id number] Oral 790 Output: Urine 600 Uretheral (Duran) 300 Estimated Blood Loss 200 Other: Voiding Method Indwelling Catheter Indwelling Catheter - Exam In general patient is alert and oriented 3 in no apparent distress Head normocephalic and atraumatic Neck supple no JVD no goiter Lungs clear to auscultation bilaterally no wheezing or crackles Heart regular rate and rhythm S1-S2, no rub or gallop Abdomen is soft nontender nondistended positive bowel sounds no hepatosplenomegaly Extremities no edema no cyanosis or clubbing Neuro no gross focal neurological deficit - Labs CBC & Chem 7: 08/24/20 06:51 08/24/20 06:51 Labs: Abnormal Lab Results - Last 24 Hours (Table) 08/23/20 08/23/20 08/23/20 Range/Units 09:43 09:43 13:00 WBC 11.6 H (3.8-10.6) k/uL RBC 3.45 L (3.80-5.40) m/uL Hgb 10.7 L (11.4-16.0) gm/dL Hct 32.9 L (34.0-46.0) % Neutrophils # 8.9 H (1.3-7.7) k/uL BUN/Creatinine Ratio 28.33 H (12.00-20.00) Ratio Total Protein 5.5 L (6.2-8.2) g/dL Albumin 3.70 L (3.80-4.90) g/dL Urine Appearance Cloudy H (Clear) Urine Protein Trace H (Negative) Urine Ketones 2+ H (Negative) Urine Blood Large H (Negative) Ur Leukocyte Esterase Large H (Negative) Urine RBC 128 H (0-5) /hpf Urine WBC 141 H (0-5) /hpf Hyaline Casts 24 H (0-2) /lpf Urine Mucus Many H (None) /hpf Crossmatch 08/23/20 08/24/20 Range/Units 14:01 06:51 WBC (3.8-10.6) k/uL RBC 2.44 L (3.80-5.40) m/uL Hgb 7.2 L D (11.4-16.0) gm/dL Hct 23.3 L (34.0-46.0) % Neutrophils # (1.3-7.7) k/uL BUN/Creatinine Ratio (12.00-20.00) Ratio Total Protein (6.2-8.2) g/dL Albumin (3.80-4.90) g/dL Urine Appearance (Clear) Urine Protein (Negative) Urine Ketones (Negative) Urine Blood (Negative) Ur Leukocyte Esterase (Negative) Urine RBC (0-5) /hpf Urine WBC (0-5) /hpf Hyaline Casts (0-2) /lpf Urine Mucus (None) /hpf Crossmatch See Detail Microbiology - Last 24 Hours (Table) 08/23/20 13:00 Urine Culture - Preliminary Urine,Voided Assessment and Plan Assessment: 1. Status post fall with right hip fracture. Plans for surgical intervention today per orthopedic services 2. Fracture of the right humerus and dislocation of right shoulder. Orthopedic services are following 3. History of elevated heart rate. Patient is maintained on Procardia. Cardiology services have been consulted for cardiac clearance 4. History of hyperlipidemia. Maintained on statin 5. History of GERD maintained on Protonix 6. Elevated white blood cell. White blood cell on admit 15.5 this is likely reactive. Patient denies any acute complaints. Chest x-ray has been completed. UA ordered. 7. Postoperative anemia patient was received 1 unit of red blood cell transfusion ordered by orthopedic surgery will recheck labs in a.m. Medication and labs were reviewed will continue to follow recheck labs in a.m.
--- NOTE | 2020-08-24 15:46 | XR ---
Limited right shoulder HISTORY: Closed reduction Single intraoperative C-arm image documents the procedure.
--- NOTE | 2020-08-24 15:47 | FL ---
Fluoroscopy HISTORY: Closed reduction 5 seconds fluoroscopy time supplied to the referring clinician. 1 intraoperative C-arm images docume nt the procedure. See dictated report from orthopedic surgery.
--- NOTE | 2020-08-24 15:48 | FL ---
Fluoroscopy HISTORY: Pain 142 seconds fluoroscopy time supplied to the referring clinician. 4 intraoperative C-arm images docu ment the procedure. See dictated report from orthopedic surgery.
--- NOTE | 2020-08-24 15:49 | XR ---
Limited right femur HISTORY: Fracture 4 intraoperative C-arm images document the procedure.
[2020-08-24] MEDS: PANTOPRAZOLE 40 MG TABLET PO SCH (20:52)
[2020-08-24] MEDS: ATORVASTATIN 20 MG TAB PO SCH (20:52)
[2020-08-24] MEDS: ASPIRIN 81 MG PO SCH (20:52)
[2020-08-24] MEDS: CALCIUM CARBONATE 500 MG CHEWABLE PO SCH (20:52)
[2020-08-24] MEDS: SENNOSIDES-DOCUSATE SODIUM 1 EACH TAB PO SCH (20:52)
[2020-08-24] MEDS: ASCORBIC ACID 500 MG TAB PO SCH (20:52)
[2020-08-24] MEDS: ALPRAZolam 0.5 MG TAB PO SCH (20:53)
[2020-08-24 21:34] LABS: % Iron Saturation 5.59 (12.00-45.00)
[2020-08-25] MEDS: SODIUM CHLORIDE 0.9% 1,000 ML IV SCH (00:39)
[2020-08-25 05:59] LABS: Basophils # (A) 0.1 k/uL (0-0.2); Basophils % (A) 1 %; Eosinophils # (A) 0.1 k/uL (0-0.7); Eosinophils % (A) 1 %; HCT 25.6 % (34.0-46.0); Hypochromasia Moderate; Lymphocytes # (A) 2.1 k/uL (1.0-4.8); Lymphocytes % (A) 23 %; MCH 30.2 pg (25.0-35.0); MCHC 31.4 g/dL (31.0-37.0); MCV 96.3 fL (80.0-100.0); Mean Platelet Volume 8.4; Monocytes # (A) 0.7 k/uL (0-1.0); Monocytes % (A) 8 %; Neutrophils # (A) 6.2 k/uL (1.3-7.7); Neutrophils % (A) 66 %; Platelet Count 132 k/uL (150-450); RBC 2.66 m/uL (3.80-5.40); RDW 15.1 % (11.5-15.5); WBC 9.3 k/uL (3.8-10.6)
[2020-08-25] MEDS: amLODIPine 2.5 MG TAB PO SCH (07:52)
--- NOTE | 2020-08-25 09:41 | P.PN ---
Subjective Progress Note Date: 08/25/20 Principal diagnosis: Status post IM nail right intertrochanteric femur fracture, closed reduction right shoulder Patient is evaluated today at bedside, she is resting comfortably. Patient was only able to get to the side of the bed yesterday with physical therapy. She denies any headaches, lightheadedness, chest pain or shortness of breath. Patient's hemoglobin is 8 at this time. I did begin ferrous sulfate 325 mg twice a day. We will continue to monitor. Objective - Vital Signs Vital signs: Vital Signs Temp 98.3 F 08/25/20 05:00 Pulse 91 08/25/20 05:00 Resp 16 08/25/20 05:00 BP 116/70 08/25/20 05:00 Pulse Ox 99 08/25/20 05:00 Intake & Output 08/24/20 08/25/20 08/25/20 18:59 06:59 18:59 Intake Total 1470 2380 Output Total 400 Balance 1070 2380 Intake: IV 800 400 Sodium Chloride 0.9% 1, 800 400 000 ml @ 100 mls/hr IV . Q10H [facility] Rx#:[id number] Intake, IV Titration 800 Amount Sodium Chloride 0.9% 1, 800 000 ml @ 100 mls/hr IV . Q10H [facility] Rx#:[id number] Oral 360 1180 Blood Product 310 Rc Pheresis 2 As3 Unit 310 [id number] Output: Urine 400 Other: Voiding Method Indwelling Catheter Indwelling Catheter - Exam Right upper extremity: Notable soft tissue swelling and bruising appreciated. She's utilizing the arm sling. Minimal external and internal rotation the shoulder reproduces no significant discomfort. Extension and flexion are intact at the wrist, she is able to wiggle all the fingers and make a fist. Range of motion of the elbow was not assessed. Sensation to light touch is intact throughout the extremity. Radial and ulnar pulses are 2+ Right lower extremity: Minimal soft tissue swelling present throughout the extremity. Her sensation to light touch is intact throughout the extremity. Logroll maneuver reproduces minimal discomfort. Calf is soft, there is no tenderness with palpation. Plantar flexion, dorsiflexion, EHL, FHL are intact. Dorsalis pedis pulses 2+ - Labs CBC & Chem 7: 08/25/20 05:10 08/24/20 06:51 Labs: Abnormal Lab Results - Last 24 Hours (Table) 08/23/20 08/24/20 08/24/20 Range/Units 14:01 06:51 06:51 RBC (3.80-5.40) m/uL Hgb (11.4-16.0) gm/dL Hct (34.0-46.0) % Plt Count (150-450) k/uL Chloride 114 H (96-109) mmol/L Carbon Dioxide 19.8 L (21.6-31.8) mmol/L Creatinine 0.5 L (0.6-1.5) mg/dL BUN/Creatinine Ratio 32.00 H (12.00-20.00) Ratio Calcium 7.9 L (8.7-10.3) mg/dL Iron 16 L (50-170) ug/dL % Saturation 5.59 L (12.00-45.00) Total Protein 4.2 L (6.2-8.2) g/dL Albumin 2.80 L (3.80-4.90) g/dL Globulin 1.4 L (1.6-3.3) g/dL Crossmatch See Detail 08/25/20 Range/Units 05:10 RBC 2.66 L (3.80-5.40) m/uL Hgb 8.0 L (11.4-16.0) gm/dL Hct 25.6 L (34.0-46.0) % Plt Count 132 L (150-450) k/uL Chloride (96-109) mmol/L Carbon Dioxide (21.6-31.8) mmol/L Creatinine (0.6-1.5) mg/dL BUN/Creatinine Ratio (12.00-20.00) Ratio Calcium (8.7-10.3) mg/dL Iron (50-170) ug/dL % Saturation (12.00-45.00) Total Protein (6.2-8.2) g/dL Albumin (3.80-4.90) g/dL Globulin (1.6-3.3) g/dL Crossmatch Microbiology - Last 24 Hours (Table) 08/23/20 13:00 Urine Culture - Final Urine,Voided Assessment and Plan Assessment: Status post IM nail right femur fracture Status post closed reduction right shoulder dislocation, 4 part right proximal humerus fracture Acute blood loss anemia, expected surgical outcome Plan: Pain control, continue use of current medication DVT prophylaxis, continue subcu medication Monitor hemoglobin Weight-bear as tolerated to right lower extremity, avoid any use of the right upper extremity Plan for dressing change prior to patient being discharged Medical recommendations Discharge planning: Anticipate discharge to subacute rehab when stable Time with Patient: Less than 30
--- NOTE | 2020-08-25 09:59 | P.PN ---
Subjective Progress Note Date: 08/25/20 Principal diagnosis: Preoperative cardiac assessment This is a pleasant 85-year-old female patient who is known to have hypertension and dyslipidemia and we asked to see the patient yesterday as a consult for preoperative assessment before surgery. The patient diagnosed with right hip fracture and she underwent surgery yesterday. She was seen today. She is asymptomatic from a cardiovascular standpoint overview. Hemodynamically she seems to be stable. I am going to stop the IV fluid because she does have diminished breathing sounds bilaterally. She beside that she has been eating and drinking. We'll follow-up with the patient on when necessary. Objective - Vital Signs Vital signs: Vital Signs Temp 98.3 F 08/25/20 05:00 Pulse 91 08/25/20 05:00 Resp 16 08/25/20 05:00 BP 116/70 08/25/20 05:00 Pulse Ox 99 08/25/20 05:00 Intake & Output 08/24/20 08/25/20 08/25/20 18:59 06:59 18:59 Intake Total 1470 2380 Output Total 400 Balance 1070 2380 Intake: IV 800 400 Sodium Chloride 0.9% 1, 800 400 000 ml @ 100 mls/hr IV . Q10H [facility] Rx#:[id number] Intake, IV Titration 800 Amount Sodium Chloride 0.9% 1, 800 000 ml @ 100 mls/hr IV . Q10H [facility] Rx#:[id number] Oral 360 1180 Blood Product 310 Rc Pheresis 2 As3 Unit 310 [id number] Output: Urine 400 Other: Voiding Method Indwelling Catheter Indwelling Catheter - Constitutional General appearance: Present: no acute distress - Respiratory Respiratory: bilateral: diminished - Cardiovascular Heart sounds: normal: S1, S2 Abnormal Heart Sounds: Present: systolic murmur - Labs CBC & Chem 7: 08/25/20 05:10 08/24/20 06:51 Labs: Abnormal Lab Results - Last 24 Hours (Table) 08/23/20 08/24/20 08/24/20 Range/Units 14:01 06:51 06:51 RBC (3.80-5.40) m/uL Hgb (11.4-16.0) gm/dL Hct (34.0-46.0) % Plt Count (150-450) k/uL Chloride 114 H (96-109) mmol/L Carbon Dioxide 19.8 L (21.6-31.8) mmol/L Creatinine 0.5 L (0.6-1.5) mg/dL BUN/Creatinine Ratio 32.00 H (12.00-20.00) Ratio Calcium 7.9 L (8.7-10.3) mg/dL Iron 16 L (50-170) ug/dL % Saturation 5.59 L (12.00-45.00) Total Protein 4.2 L (6.2-8.2) g/dL Albumin 2.80 L (3.80-4.90) g/dL Globulin 1.4 L (1.6-3.3) g/dL Crossmatch See Detail 08/25/20 Range/Units 05:10 RBC 2.66 L (3.80-5.40) m/uL Hgb 8.0 L (11.4-16.0) gm/dL Hct 25.6 L (34.0-46.0) % Plt Count 132 L (150-450) k/uL Chloride (96-109) mmol/L Carbon Dioxide (21.6-31.8) mmol/L Creatinine (0.6-1.5) mg/dL BUN/Creatinine Ratio (12.00-20.00) Ratio Calcium (8.7-10.3) mg/dL Iron (50-170) ug/dL % Saturation (12.00-45.00) Total Protein (6.2-8.2) g/dL Albumin (3.80-4.90) g/dL Globulin (1.6-3.3) g/dL Crossmatch Microbiology - Last 24 Hours (Table) 08/23/20 13:00 Urine Culture - Final Urine,Voided Assessment and Plan Assessment: Assessment #1 status post fall with right hip fracture #2 status post right hip surgery #3 right humerus fracture #4 valvular heart disease #5 hypertension #6 anemia Plan #1 continue the current medical regimen #2 follow-up with the patient on when necessary
--- NOTE | 2020-08-25 10:28 | P.PN ---
Subjective Progress Note Date: 08/25/20 This is an 85-year-old female patient of Dr. Ramírez. Patient presented to the ER after sustaining a fall. Patient reports she tripped over a rug and likely her son was home and was able to call EMS for assistance. Upon arrival is on patient had displaced impacted intertrochanteric fracture of the right femur and acute community minimally displaced fracture of the surgical neck right proximal humerus. Patient has been admitted to orthopedic services and plans for surgical intervention today. Patient has a past medical history of GERD, hyperlipidemia and patient reports she had elevated heart rate and when she was started on Procardia and follows regularly with cardiology services denies any h istory of atrial fibrillation, [place], CVA, COPD or asthma. Cardiac he services have been consulted for medical clearance prior to surgery. Patient's white blood cell also elevated on admit 15.0. This is likely reactive to the fracture. Patient denies any acute complaints. Afebrile. Chest x-ray was completed showing expiratory rotated exam no evident pneumothorax or pleural effusion. Will order UA to rule out any infection. White blood cell improving to 11.0. Upon exam patient does complain of discomfort to right hip and shoulder. Patient denies any chest pain or shortness of breath. Patient denies nausea vomiting or diarrhea. Patient denies any urinary burning or frequency. On 08/24/2020 patient was seen and examined on the medical floor, she is alert and oriented 3 in no distress, she is complaining of right arm pain otherwise she denies any complaints there is no fever or chills no headache or dizziness no chest pain no shortness of breath no cough no nausea or vomiting no abdominal pain no diarrhea no blood in the stools no burning with urination no frequency or urgency and no hematuria. And dropped to 7.2 this morning, 1 unit of red blood cells has been ordered by orthopedic surgery. On 08/25/2020 patient is alert and oriented 3. Patient is complaining of some discomfort but is due for pain medication. Patient denies any chest pain or shortness of breath. Patient denies nausea vomiting or diarrhea. Patient denies any urinary burning or frequency. Patient will be started on Rocephin for urinary tract infection urine culture ordered Objective - Vital Signs Vital signs: Vital Signs Temp 97.7 F 08/24/20 20:50 Pulse 94 08/24/20 20:50 Resp 16 08/24/20 20:50 BP 121/69 08/24/20 20:50 Pulse Ox 93 L 08/24/20 20:50 Intake & Output 08/24/20 08/24/20 08/25/20 06:59 18:59 06:59 Intake Total 1191 1470 990 Output Total 800 400 Balance 391 1070 990 Weight 61.781 kg Intake: IV 401 800 400 Sodium Chloride 0.9% 1, 100 800 400 000 ml @ 100 mls/hr IV . Q10H [facility] Rx#:[id number] Oral 790 360 590 Blood Product 310 Rc Pheresis 2 As3 Unit 310 [id number] Output: Urine 600 400 Uretheral (Duran) 300 Estimated Blood Loss 200 Other: Voiding Method Indwelling Catheter Indwelling Catheter Indwelling Catheter - Exam In general patient is alert and oriented 3 in no apparent distress Head normocephalic and atraumatic Neck supple no JVD no goiter Lungs clear to auscultation bilaterally no wheezing or crackles Heart regular rate and rhythm S1-S2, no rub or gallop Abdomen is soft nontender nondistended positive bowel sounds no hepat osplenomegaly Extremities no edema no cyanosis or clubbing Neuro no gross focal neurological deficit - Labs CBC & Chem 7: 08/25/20 05:10 08/24/20 06:51 Labs: Abnormal Lab Results - Last 24 Hours (Table) 08/23/20 08/24/20 08/24/20 Range/Units 14:01 06:51 06:51 RBC 2.44 L (3.80-5.40) m/uL Hgb 7.2 L D (11.4-16.0) gm/dL Hct 23.3 L (34.0-46.0) % Chloride 114 H (96-109) mmol/L Carbon Dioxide 19.8 L (21.6-31.8) mmol/L Creatinine 0.5 L (0.6-1.5) mg/dL BUN/Creatinine Ratio 32.00 H (12.00-20.00) Ratio Calcium 7.9 L (8.7-10.3) mg/dL Iron (50-170) ug/dL % Saturation (12.00-45.00) Total Protein 4.2 L (6.2-8.2) g/dL Albumin 2.80 L (3.80-4.90) g/dL Globulin 1.4 L (1.6-3.3) g/dL Crossmatch See Detail 08/24/20 Range/Units 06:51 RBC (3.80-5.40) m/uL Hgb (11.4-16.0) gm/dL Hct (34.0-46.0) % Chloride (96-109) mmol/L Carbon Dioxide (21.6-31.8) mmol/L Creatinine (0.6-1.5) mg/dL BUN/Creatinine Ratio (12.00-20.00) Ratio Calcium (8.7-10.3) mg/dL Iron 16 L (50-170) ug/dL % Saturation 5.59 L (12.00-45.00) Total Protein (6.2-8.2) g/dL Albumin (3.80-4.90) g/dL Globulin (1.6-3.3) g/dL Crossmatch Microbiology - Last 24 Hours (Table) 08/23/20 13:00 Urine Culture - Final Urine,Voided Assessment and Plan Assessment: 1. Status post fall with right hip fracture, status post IM nail right intertrochanteric femur fracture and closed reduction of right shoulder. Postop day 2 2. Fracture of the right humerus and dislocation of right shoulder. Orthopedic services are following 3. History of elevated heart rate. Patient is maintained on Procardia. Cardiology services following 4. History of hyperlipidemia. Maintained on statin 5. History of GERD maintained on Protonix 6. Elevated white blood cell. White blood cell on admit 15.5 this is likely reactive. Patient denies any acute complaints. Chest x-ray has been completed. UA ordered. 7. Expected Postoperative anemia patient received 1 unit of red blood cell transfusion ordered by orthopedic surgery will recheck labs in a.m. improving to 8.0. Patient started on ferrous sulfate 8. Urinary tract infection. Patient started on Rocephin urine culture ordered Medication and labs were reviewed will continue to follow recheck labs in a.m. Anticipate discharge to subacute rehab when stable
[2020-08-25] MEDS: HYDROcodone/APAP 5-325MG 1 EACH TAB PO PRN ×2 (11:06→16:32)
[2020-08-25] MEDS: ENOXAPARIN 40 MG/0.4 ML SYRINGE SQ SCH (11:07)
[2020-08-25] MEDS: FERROUS SULFATE 325 MG TAB PO SCH (16:32)
[2020-08-25] MEDS: ASPIRIN 81 MG PO SCH (20:32)
[2020-08-25] MEDS: ASCORBIC ACID 500 MG TAB PO SCH (20:32)
[2020-08-25] MEDS: ALPRAZolam 0.5 MG TAB PO SCH (20:32)
[2020-08-25] MEDS: PANTOPRAZOLE 40 MG TABLET PO SCH (20:32)
[2020-08-25] MEDS: SENNOSIDES-DOCUSATE SODIUM 1 EACH TAB PO SCH (20:32)
[2020-08-25] MEDS: CALCIUM CARBONATE 500 MG CHEWABLE PO SCH (20:32)
[2020-08-25] MEDS: ATORVASTATIN 20 MG TAB PO SCH (20:32)
[2020-08-26 05:35] LABS: Basophils # (A) 0.1 k/uL (0-0.2); Basophils % (A) 1 %; Eosinophils # (A) 0.2 k/uL (0-0.7); Eosinophils % (A) 3 %; HCT 23.4 % (34.0-46.0); HGB 7.6 gm/dL (11.4-16.0); Hypochromasia Slight; Lymphocytes # (A) 1.6 k/uL (1.0-4.8); Lymphocytes % (A) 23 %; MCH 30.6 pg (25.0-35.0); MCHC 32.4 g/dL (31.0-37.0); MCV 94.3 fL (80.0-100.0); Mean Platelet Volume 8.5; Monocytes # (A) 0.5 k/uL (0-1.0); Monocytes % (A) 7 %; Neutrophils # (A) 4.7 k/uL (1.3-7.7); Neutrophils % (A) 65 %; Platelet Count 141 k/uL (150-450); RBC 2.49 m/uL (3.80-5.40); RDW 14.9 % (11.5-15.5); WBC 7.2 k/uL (3.8-10.6)
[2020-08-26] MEDS: amLODIPine 2.5 MG TAB PO SCH (07:51)
[2020-08-26] MEDS: ENOXAPARIN 40 MG/0.4 ML SYRINGE SQ SCH (07:52)
[2020-08-26] MEDS: FERROUS SULFATE 325 MG TAB PO SCH ×2 (07:52→17:58)
[2020-08-26] MEDS: HYDROcodone/APAP 5-325MG 1 EACH TAB PO PRN (07:55)
[2020-08-26 09:49] LABS: ALT <8 U/L (8-44); AST 17 U/L (13-35); African American GFR (CKD) 108.5 (60.0-200.0); Albumin/Globulin Ratio 1.87 (1.60-3.17); Alkaline Phosphatase 65 U/L (41-126); Calcium 8.3 mg/dL (8.7-10.3); Carbon Dioxide 21.7 mmol/L (21.6-31.8); Chloride 106 mmol/L (96-109); Globulin 1.5 g/dL (1.6-3.3); Glucose 81 mg/dL (70-110); Non-African American GFR(CKD) 93.7 (60.0-200.0); Potassium 4.1 mmol/L (3.5-5.5); Sodium 136 mmol/L (135-145); Total Protein 4.3 g/dL (6.2-8.2)
--- NOTE | 2020-08-26 11:26 | CDI ---
Documentation Clarification Form Date: 08/26/2020 11:16:13 AM From: Alison SantillanMorinKERRI andre, CCDS Admit Date: 08/22/2020 04:41:00 PM Patient Name: Susan Do Visit Number: [id number] Discharge Date: ATTENTION: The Clinical Documentation Specialists (CDI) and [facility] Coding Staff appreciate your assistance in clarifying documentation. Please respond to the clarification below the line at the bottom and electronically sign. The CDI & [facility] Coding staff will review the response and follow-up if needed. Please note: Queries are made part of the Legal Health Record. If you have any questions, please contact the author of this message via ITS. Dr. Shanika Avalos: Per the 08/25 Medical Management Progress Note: "Patient will be started on Rocephin for urinary tract infection, urine culture ordered. Assessment: Urinary tract infection." History/Risk Factors: GERD, Hyperlipidemia, Hypertension, Valvular heart disease: Moderate aortic regurgitation, Moderate mitral regurgitation, Moderate tricuspid regurgitation. Clinical Indicators: Patient presented to the ED via EMS after a trip & fall at home, diagnosed with Comminuted & displaced right IT femur fracture and Comminuted & displaced right proximal humerus fracture with glenohumeral dislocation. UA 08/23: Cloudy, Trace Protein, 2+ ketones, Large Blood, Large Esterase, RBC 128, WBC 141, Hyaline Casts 24. Urine Culture 08/23: Final: negative. Patient has Osullivan Catheter, started on 08/23 for Orthopedic Surgery, Osullivan Cath remains in place. Treatment: IV Rocephin started on 08/25. Please document the condition that these clinical indicators signify, whether Present on Admission, and cause if known: UTI due to Osullivan Catheter UTI not due to Osullivan Catheter Other, please specify Unable to determine (Last Revision: July 2017) UTI not due to osullivan catheter MTDD
--- NOTE | 2020-08-26 12:34 | P.PN ---
Subjective Progress Note Date: 08/26/20 Principal diagnosis: Status post IM nail right intertrochanteric femur fracture, closed reduction right shoulder Patient is evaluated today at bedside, she is resting comfortably. She denies any headaches, lightheadedness, chest pain or shortness of breath. Patient's hemoglobin remained low, she was started on ferrous sulfate a few days ago. The order has been placed for 1 additional unit of packed RBCs to be given today. Objective - Vital Signs Vital signs: Vital Signs Temp 98.1 F 08/26/20 04:59 Pulse 96 08/26/20 08:00 Resp 16 08/26/20 04:59 BP 120/73 08/26/20 04:59 Pulse Ox 97 08/26/20 04:59 Intake & Output 08/25/20 08/26/20 08/26/20 18:59 06:59 18:59 Intake Total 880 1180 Output Total 800 475 Balance 80 705 Intake: IV 150 Sodium Chloride 0.9% 1, 150 000 ml @ 100 mls/hr IV . Q10H [facility] Rx#:[id number] Intake, IV Titration 50 Amount cefTRIAXone 1 gm In 50 Sodium Chloride 0.9% 50 ml @ 100 mls/hr IVPB Q24HR [facility] Rx#:[id number] Oral 680 1180 Output: Urine 800 475 Uretheral (Duran) 475 Other: Voiding Method Indwelling Catheter Indwelling Catheter # Voids 1 - Exam Right upper extremity: Notable soft tissue swelling and bruising appreciated. She's utilizing the arm sling. Minimal external and internal rotation the shoulder reproduces no significant discomfort. Extension and flexion are intact at the wrist, she is able to wiggle all the fingers and make a fist. Range of motion of the elbow was not assessed. Sensation to light touch is intact throughout the extremity. Radial and ulnar pulses are 2+ Right lower extremity: Minimal soft tissue swelling present throughout the extremity. Her sensation to light touch is intact throughout the extremity. Logroll maneuver reproduces minimal discomfort. Calf is soft, there is no tenderness with palpation. Plantar flexion, dorsiflexion, EHL, FHL are intact. Dorsalis pedis pulses 2+ - Labs CBC & Chem 7: 08/26/20 05:06 08/26/20 05:06 Labs: Abnormal Lab Results - Last 24 Hours (Table) 08/23/20 08/26/20 08/26/20 Range/Units 14:01 05:06 05:06 RBC 2.49 L (3.80-5.40) m/uL Hgb 7.6 L (11.4-16.0) gm/dL Hct 23.4 L (34.0-46.0) % Plt Count 141 L (150-450) k/uL Creatinine 0.4 L (0.6-1.5) mg/dL BUN/Creatinine Ratio 37.50 H (12.00-20.00) Ratio Calcium 8.3 L (8.7-10.3) mg/dL ALT <8 L (8-44) U/L Total Protein 4.3 L (6.2-8.2) g/dL Albumin 2.80 L (3.80-4.90) g/dL Globulin 1.5 L (1.6-3.3) g/dL Crossmatch See Detail Assessment and Plan Assessment: Status post IM nail right femur fracture Status post closed reduction right shoulder dislocation, 4 part right proximal humerus fracture Acute blood loss anemia, expected surgical outcome Plan: Pain control, continue use of current medication DVT prophylaxis, continue subcu medication Recheck hemoglobin on 08/27/2020, hopefully will receive her packed RBCs today Weight-bear as tolerated to right lower extremity, avoid any use of the right upper extremity Medical recommendations Discharge planning: Anticipate discharge to subacute rehab 08/27 or 08/28/2020 Time with Patient: Less than 30
--- NOTE | 2020-08-26 19:15 | P.PN ---
Subjective Progress Note Date: 08/26/20 This is an 85-year-old female patient of Dr. Ramírez. Patient presented to the ER after sustaining a fall. Patient reports she tripped over a rug and likely her son was home and was able to call EMS for assistance. Upon arrival is on patient had displaced impacted intertrochanteric fracture of the right femur and acute community minimally displaced fracture of the surgical neck right proximal humerus. Patient has been admitted to orthopedic services and plans for surgical intervention today. Patient has a past medical history of GERD, hyperlipidemia and patient reports she had elevated heart rate and when she was started on Procardia and follows regularly with cardiology services denies any h istory of atrial fibrillation, VA, CVA, COPD or asthma. Cardiac he services have been consulted for medical clearance prior to surgery. Patient's white blood cell also elevated on admit 15.0. This is likely reactive to the fracture. Patient denies any acute complaints. Afebrile. Chest x-ray was completed showing expiratory rotated exam no evident pneumothorax or pleural effusion. Will order UA to rule out any infection. White blood cell improving to 11.0. Upon exam patient does complain of discomfort to right hip and shoulder. Patient denies any chest pain or shortness of breath. Patient denies nausea vomiting or diarrhea. Patient denies any urinary burning or frequency. On 08/24/2020 patient was seen and examined on the medical floor, she is alert and oriented 3 in no distress, she is complaining of right arm pain otherwise she denies any complaints there is no fever or chills no headache or dizziness no chest pain no shortness of breath no cough no nausea or vomiting no abdominal pain no diarrhea no blood in the stools no burning with urination no frequency or urgency and no hematuria. And dropped to 7.2 this morning, 1 unit of red blood cells has been ordered by orthopedic surgery. On 08/25/2020 patient is alert and oriented 3. Patient is complaining of some discomfort but is due for pain medication. Patient denies any chest pain or shortness of breath. Patient denies nausea vomiting or diarrhea. Patient denies any urinary burning or frequency. Patient will be started on Rocephin for urinary tract infection urine culture ordered On 08/26/2020 patient was seen and examined on the medical floor, she is alert and oriented 3 in no distress she is complaining of right shoulder pain otherwise she denies any complaints there is no fever or chills no headache or dizziness no chest pain no shortness of breath no cough no nausea or vomiting no abdominal pain no diarrhea and no urinary symptoms. Hemoglobin today is down to 7.6 Objective - Vital Signs Vital signs: Vital Signs Temp 97.5 F L 08/26/20 13:25 Pulse 103 H 08/26/20 13:25 Resp 18 08/26/20 13:25 BP 118/66 08/26/20 13:25 Pulse Ox 90 L 08/26/20 13:25 Intake & Output 08/25/20 08/26/20 08/26/20 18:59 06:59 18:59 Intake Total 880 1180 0 Output Total 800 475 Balance 80 705 0 Intake: IV 150 Sodium Chloride 0.9% 1, 150 000 ml @ 100 mls/hr IV . Q10H [facility] Rx#:[id number] Intake, IV Titration 50 Amount cefTRIAXone 1 gm In 50 Sodium Chloride 0.9% 50 ml @ 100 mls/hr IVPB Q24HR [facility] Rx#:[id number] Oral 680 1180 Blood Product 0 Rc Pheresis 2 As3 Unit 0 [id number] Output: Urine 800 475 Uretheral (Duran) 475 Other: Voiding Method Indwelling Catheter Indwelling Catheter # Voids 1 - Exam In general patient is alert and oriented 3 in no apparent distress Head normocephalic and atraumatic Neck supple no JVD no goiter Lungs clear to auscultation bilaterally no wheezing or crackles Heart regular rate and rhythm S1-S2, no rub or gallop Abdomen is soft nontender nondistended positive bowel sounds no hepatosplenomegaly Extremities no edema no cyanosis or clubbing Neuro no gross focal neurological deficit - Labs CBC & Chem 7: 08/26/20 05:06 08/26/20 05:06 Labs: Abnormal Lab Results - Last 24 Hours (Table) 08/23/20 08/26/20 08/26/20 Range/Units 14:01 05:06 05:06 RBC 2.49 L (3.80-5.40) m/uL Hgb 7.6 L (11.4-16.0) gm/dL Hct 23.4 L (34.0-46.0) % Plt Count 141 L (150-450) k/uL Creatinine 0.4 L (0.6-1.5) mg/dL BUN/Creatinine Ratio 37.50 H (12.00-20.00) Ratio Calcium 8.3 L (8.7-10.3) mg/dL ALT <8 L (8-44) U/L Total Protein 4.3 L (6.2-8.2) g/dL Albumin 2.80 L (3.80-4.90) g/dL Globulin 1.5 L (1.6-3.3) g/dL Crossmatch See Detail Assessment and Plan Assessment: 1. Status post fall with right hip fracture, status post IM nail right intertrochanteric femur fracture and closed reduction of right shoulder. Postop day 2 2. Fracture of the right humerus and dislocation of right shoulder. Orthopedic services are following 3. History of elevated heart rate. Patient is maintained on Procardia. Cardiology services following 4. History of hyperlipidemia. Maintained on statin 5. History of GERD maintained on Protonix 6. Elevated white blood cell. White blood cell on admit 15.5 this is likely re active. Patient denies any acute complaints. Chest x-ray has been completed. UA ordered. 7. Expected Postoperative anemia patient received 1 unit of red blood cell transfusion ordered by orthopedic surgery will recheck labs in a.m. improving to 8.0. Patient started on ferrous sulfate 8. Urinary tract infection. Patient started on Rocephin urine culture ordered Medication and labs were reviewed will continue to follow recheck labs in a.m. Anticipate discharge to subacute rehab when stable
[2020-08-26] MEDS: CALCIUM CARBONATE 500 MG CHEWABLE PO SCH (20:36)
[2020-08-26] MEDS: ASCORBIC ACID 500 MG TAB PO SCH (20:36)
[2020-08-26] MEDS: SENNOSIDES-DOCUSATE SODIUM 1 EACH TAB PO SCH (20:36)
[2020-08-26] MEDS: ATORVASTATIN 20 MG TAB PO SCH (20:36)
[2020-08-26] MEDS: ALPRAZolam 0.5 MG TAB PO SCH (20:36)
[2020-08-26] MEDS: PANTOPRAZOLE 40 MG TABLET PO SCH (20:36)
[2020-08-26] MEDS: ASPIRIN 81 MG PO SCH (20:36)
[2020-08-27] MEDS: HYDROcodone/APAP 5-325MG 1 EACH TAB PO PRN ×2 (08:01→16:01)
[2020-08-27] MEDS: FERROUS SULFATE 325 MG TAB PO SCH ×2 (08:01→17:35)
[2020-08-27] MEDS: amLODIPine 2.5 MG TAB PO SCH (08:02)
[2020-08-27] MEDS: ENOXAPARIN 40 MG/0.4 ML SYRINGE SQ SCH (08:03)
--- NOTE | 2020-08-27 13:15 | P.PN ---
Subjective Progress Note Date: 08/27/20 Principal diagnosis: Status post IM nail right intertrochanteric femur fracture, closed reduction right shoulder Patient is evaluated today at bedside, she is resting comfortably. She denies any headaches, lightheadedness, chest pain or shortness of breath. CBC was ordered today, awaiting results for that. Patient states her pain is well-controlled went resting, most the discomfort is when she ambulates. Objective - Vital Signs Vital signs: Vital Signs Temp 98.1 F 08/27/20 12:18 Pulse 120 H 08/27/20 12:18 Resp 16 08/27/20 12:18 BP 132/75 08/27/20 12:18 Pulse Ox 95 08/27/20 12:18 Intake & Output 08/26/20 08/27/20 08/27/20 18:59 06:59 18:59 Intake Total 310 1280 240 Output Total 600 900 300 Balance -290 380 -60 Intake: Oral 1280 240 Blood Product 310 Rc Pheresis 2 As3 Unit 310 [id number] Output: Urine 600 900 300 Uretheral (Duran) 600 900 300 Other: Voiding Method Indwelling Catheter Indwelling Catheter Bedside Commode # Bowel Movements 1 - Exam Right upper extremity: She's utilizing the arm sling. Minimal external and internal rotation the shoulder reproduces no significant discomfort. Extension and flexion are intact at the wrist, she is able to wiggle all the fingers and make a fist. Range of motion of the elbow was not assessed. Sensation to light touch is intact throughout the extremity. Radial and ulnar pulses are 2+ Right lower extremity: Minimal soft tissue swelling present throughout the extremity. Her sensation to light touch is intact throughout the extremity. Logroll maneuver reproduces minimal discomfort. Calf is soft, there is no tenderness with palpation. Plantar flexion, dorsiflexion, EHL, FHL are intact. Dorsalis pedis pulses 2+ - Labs CBC & Chem 7: 08/26/20 05:06 08/26/20 05:06 Labs: Abnormal Lab Results - Last 24 Hours (Table) 08/23/20 Range/Units 14:01 Crossmatch See Detail Assessment and Plan Assessment: Status post IM nail right femur fracture Status post closed reduction right shoulder dislocation, 4 part right proximal humerus fracture Acute blood loss anemia, expected surgical outcome Plan: Pain control, continue use of current medication DVT prophylaxis, plan for subcu medication of discharge Await hemoglobin results Weight-bear as tolerated to right lower extremity, avoid any use of the right upper extremity Medical recommendations Discharge planning: Planning for discharge to rehab tomorrow Time with Patient: Less than 30
[2020-08-27 13:44] LABS: Basophils % (A) 0 %; Eosinophils # (A) 0.2 k/uL (0-0.7); Eosinophils % (A) 1 %; HCT 32.5 % (34.0-46.0); HGB 10.5 gm/dL (11.4-16.0); Lymphocytes # (A) 1.7 k/uL (1.0-4.8); Lymphocytes % (A) 15 %; MCH 30.2 pg (25.0-35.0); MCHC 32.2 g/dL (31.0-37.0); MCV 93.9 fL (80.0-100.0); Monocytes # (A) 0.7 k/uL (0-1.0); Monocytes % (A) 6 %; Neutrophils # (A) 8.1 k/uL (1.3-7.7); Neutrophils % (A) 75 %; Platelet Count 227 k/uL (150-450); RBC 3.46 m/uL (3.80-5.40); RDW 15.1 % (11.5-15.5); WBC 10.8 k/uL (3.8-10.6)
--- NOTE | 2020-08-27 18:43 | P.PN ---
Subjective Progress Note Date: 08/27/20 This is an 85-year-old female patient of Dr. Ramírez. Patient presented to the ER after sustaining a fall. Patient reports she tripped over a rug and likely her son was home and was able to call EMS for assistance. Upon arrival is on patient had displaced impacted intertrochanteric fracture of the right femur and acute community minimally displaced fracture of the surgical neck right proximal humerus. Patient has been admitted to orthopedic services and plans for surgical intervention today. Patient has a past medical history of GERD, hyperlipidemia and patient reports she had elevated heart rate and when she was started on Procardia and follows regularly with cardiology services denies any h istory of atrial fibrillation, VA, CVA, COPD or asthma. Cardiac he services have been consulted for medical clearance prior to surgery. Patient's white blood cell also elevated on admit 15.0. This is likely reactive to the fracture. Patient denies any acute complaints. Afebrile. Chest x-ray was completed showing expiratory rotated exam no evident pneumothorax or pleural effusion. Will order UA to rule out any infection. White blood cell improving to 11.0. Upon exam patient does complain of discomfort to right hip and shoulder. Patient denies any chest pain or shortness of breath. Patient denies nausea vomiting or diarrhea. Patient denies any urinary burning or frequency. On 08/24/2020 patient was seen and examined on the medical floor, she is alert and oriented 3 in no distress, she is complaining of right arm pain otherwise she denies any complaints there is no fever or chills no headache or dizziness no chest pain no shortness of breath no cough no nausea or vomiting no abdominal pain no diarrhea no blood in the stools no burning with urination no frequency or urgency and no hematuria. And dropped to 7.2 this morning, 1 unit of red blood cells has been ordered by orthopedic surgery. On 08/25/2020 patient is alert and oriented 3. Patient is complaining of some discomfort but is due for pain medication. Patient denies any chest pain or shortness of breath. Patient denies nausea vomiting or diarrhea. Patient denies any urinary burning or frequency. Patient will be started on Rocephin for urinary tract infection urine culture ordered On 08/26/2020 patient was seen and examined on the medical floor, she is alert and oriented 3 in no distress she is complaining of right shoulder pain otherwise she denies any complaints there is no fever or chills no headache or dizziness no chest pain no shortness of breath no cough no nausea or vomiting no abdominal pain no diarrhea and no urinary symptoms. Hemoglobin today is down to 7.6 On 08/27/2020 patient was seen and examined on the medical floor she is alert and oriented 3 she is complaining of pain in the right shoulder otherwise no complaints there is no fever or chills no headache or dizziness no chest pain no shortness of breath no cough, no nausea or vomiting no abdominal pain no diarrhea no blood in the stools no burning with urination no frequency or urgency and no hematuria. Hemoglobin is up to 10.5 after receiving 1 unit of red blood cell transfusion yesterday Objective - Vital Signs Vital signs: Vital Signs Temp 98.1 F 08/27/20 12:18 Pulse 120 H 08/27/20 12:18 Resp 16 08/27/20 15:49 BP 132/75 08/27/20 12:18 Pulse Ox 95 08/27/20 12:18 Intake & Output 08/26/20 08/27/20 08/27/20 18:59 06:59 18:59 Intake Total 310 1280 240 Output Total 600 900 300 Balance -290 380 -60 Intake: Oral 1280 240 Blood Product 310 Rc Pheresis 2 As3 Unit 310 [id number] Output: Urine 600 900 300 Uretheral (Duran) 600 900 300 Other: Voiding Method Indwelling Catheter Indwelling Catheter Bedside Commode # Voids 1 # Bowel Movements 1 - Exam In general patient is alert and oriented 3 in no apparent distress Head normocephalic and atraumatic Neck supple no JVD no goiter Lungs clear to auscultation bilaterally no wheezing or crackles Heart regular rate and rhythm S1-S2, no rub or gallop Abdomen is soft nontender nondistended positive bowel sounds no hepatosplenomegaly Extremities no edema no cyanosis or clubbing Neuro no gross focal neurological deficit - Labs CBC & Chem 7: 08/27/20 13:20 08/26/20 05:06 Labs: Abnormal Lab Results - Last 24 Hours (Table) 08/27/20 Range/Units 13:20 WBC 10.8 H (3.8-10.6) k/uL RBC 3.46 L (3.80-5.40) m/uL Hgb 10.5 L (11.4-16.0) gm/dL Hct 32.5 L (34.0-46.0) % Neutrophils # 8.1 H (1.3-7.7) k/uL Assessment and Plan Assessment: 1. Status post fall with right hip fracture, status post IM nail right inte rtrochanteric femur fracture and closed reduction of right shoulder. Postop day 2 2. Fracture of the right humerus and dislocation of right shoulder. Orthopedic services are following 3. History of elevated heart rate. Patient is maintained on Procardia. Cardiology services following 4. History of hyperlipidemia. Maintained on statin 5. History of GERD maintained on Protonix 6. Elevated white blood cell. White blood cell on admit 15.5 this is likely reactive. Patient denies any acute complaints. Chest x-ray has been completed. UA ordered. 7. Expected Postoperative anemia patient received 1 unit of red blood cell transfusion ordered by orthopedic surgery will recheck labs in a.m. improving to 8.0. Patient started on ferrous sulfate 8. Urinary tract infection. Patient started on Rocephin urine culture ordered Medication and labs were reviewed will continue to follow recheck labs in a.m. Anticipate discharge to subacute rehab when stable
[2020-08-27] MEDS: SENNOSIDES-DOCUSATE SODIUM 1 EACH TAB PO SCH (20:15)
[2020-08-27] MEDS: PANTOPRAZOLE 40 MG TABLET PO SCH (20:15)
[2020-08-27] MEDS: ALPRAZolam 0.5 MG TAB PO SCH (20:15)
[2020-08-27] MEDS: CALCIUM CARBONATE 500 MG CHEWABLE PO SCH (20:15)
[2020-08-27] MEDS: ATORVASTATIN 20 MG TAB PO SCH (20:15)
[2020-08-27] MEDS: ASPIRIN 81 MG PO SCH (20:16)
[2020-08-27] MEDS: ASCORBIC ACID 500 MG TAB PO SCH (20:17)
[2020-08-27] MEDS: HYDROmorphone 0.5 MG/0.5 ML SYRINGE IVP PRN (20:18)
[2020-08-28 05:07] VITALS: BP 102/67; PULSE 93; TEMP 98.5
[2020-08-28] MEDS: HYDROcodone/APAP 5-325MG 1 EACH TAB PO PRN (06:00)
[2020-08-28] MEDS: FERROUS SULFATE 325 MG TAB PO SCH (08:01)
[2020-08-28] MEDS: amLODIPine 2.5 MG TAB PO SCH (08:01)
[2020-08-28] MEDS: ENOXAPARIN 40 MG/0.4 ML SYRINGE SQ SCH (08:02)
--- NOTE | 2020-08-28 08:26 | P.PN ---
Subjective Progress Note Date: 08/28/20 Principal diagnosis: Status post IM nail right intertrochanteric femur fracture, closed reduction right shoulder Patient is evaluated today at bedside, she is resting comfortably. She denies any headaches, lightheadedness, chest pain or shortness of breath. CBC that was done on 08/27/2020 showed hemoglobin increasing to 10. She continues to be asymptomatic with regards to the anemia. She has no acute complaints today. Objective - Vital Signs Vital signs: Vital Signs Temp 98.5 F 08/28/20 05:00 Pulse 93 08/28/20 05:00 Resp 17 08/28/20 05:00 BP 102/67 08/28/20 05:00 Pulse Ox 98 08/28/20 05:00 Intake & Output 08/27/20 08/28/20 08/28/20 18:59 06:59 18:59 Intake Total 240 540 Output Total 300 Balance -60 540 Intake: Oral 240 540 Output: Urine 300 Uretheral (Duran) 300 Other: Voiding Method Bedside Commode Bedside Commode # Voids 1 1 # Bowel Movements 1 - Exam Right upper extremity: She's utilizing the arm sling. Minimal external and internal rotation the shoulder reproduces no significant discomfort. Extension and flexion are intact at the wrist, she is able to wiggle all the fingers and make a fist. Range of motion of the elbow was not assessed. Sensation to light touch is intact throughout the extremity. Radial and ulnar pulses are 2+ Right lower extremity: Minimal soft tissue swelling present throughout the extremity. Bandages were changed at bedside, there is no active drainage, there is some dry blood on the distal incisions. The elham are all in good position and condition. Her sensation to light touch is intact throughout the extremity. Logroll maneuver reproduces minimal discomfort. Calf is soft, there is no tenderness with palpation. Plantar flexion, dorsiflexion, EHL, FHL are intact. Dorsalis pedis pulses 2+ - Labs CBC & Chem 7: 08/27/20 13:20 08/26/20 05:06 Labs: Abnormal Lab Results - Last 24 Hours (Table) 08/27/20 Range/Units 13: WBC 10.8 H (3.8-10.6) k/uL RBC 3.46 L (3.80-5.40) m/uL Hgb 10.5 L (11.4-16.0) gm/dL Hct 32.5 L (34.0-46.0) % Neutrophils # 8.1 H (1.3-7.7) k/uL Assessment and Plan Assessment: Status post IM nail right femur fracture Status post closed reduction right shoulder dislocation, 4 part right proximal humerus fracture Acute blood loss anemia, expected surgical outcome Plan: Pain control, plan for [place] 5 mg/325 mg of discharge DVT prophylaxis, heparin 5000 units every 12 for 21 days Await hemoglobin results Weight-bear as tolerated to right lower extremity, avoid any use of the right upper extremity Medical recommendations Discharge planning: Stable for discharge today Time with Patient: Less than 30
--- NOTE | 2020-08-28 08:31 | P.DS ---
Providers Date of admission: 08/22/20 16:41 Expected date of discharge: 08/28/20 Attending physician: Hunter Silva Consults: 08/22/20 16:43 Consult Physician Routine Consulting Provider: Shanika Avalos Consult Reason/Comments: ,medical clearance Do you want consulting provider notified?: Yes 08/23/20 09:48 Consult Physician Routine Consulting Provider: Rosina Friedman Consult Reason/Comments: cardiac clearance Do you want consulting provider notified?: Yes Primary care physician: China Ramírez Hospital Course: Date of admission: 08/22/2020 Date of discharge: 08/28/2020 Admission diagnosis: Displaced 4 part proximal right humerus fracture with shoulder dislocation, displaced and comminuted right intertrochanteric femur fracture Discharge diagnosis: Status post IM nail right intertrochanteric femur fracture, status post closed reduction right shoulder Attending physician: Dr. Silva Surgical procedures: Intramedullary nail right intertrochanteric femur fracture, closed reduction right shoulder Brief history: Patient is a 85-year-old female who was evaluated at [facility] on 08/22/2020 after falling and injuring herself at home. It was determined upon arrival to the hospital that she fractured dislocated her right proximal humerus/shoulder and also had a displaced and comminuted right intertrochanteric femur fracture. I was contacted by the emergency room staff and the patient arrived, was able to review the images, I was able to discuss the case with my attending physician. Patient was then admitted under orthopedic care with plan for likely surgical intervention. Hospital course: Details of patient's surgery can be found in operative report. Patient tolerated the procedure well and was subsequently transported to ortho pedic floor. Patient's orthopeidc and medical care was provided daily. Patient had daily laboratory tests performed for evaluation of overall blood counts. Patient had daily physical therapy to include strengthening range of motion as well as education with walker ambulation. Patient was treated with Lovenox for their postoperative DVT prophylaxis during their inpatient stay. Patient was noted to have a relatively uneventful postoperative course. Patient was noted to have acute blood loss anemia due to surgery, she did receive a few transfusions until the hemoglobin stabilized. Patient reported satisfactory pain control with oral pain medications by postoperative day 0. Patient showed satisfactory progress with physical therapy. Patient moved steadily through the program and had no difficulty meeting the goals by postoperative day 5. Given patient's otherwise satisfactory course and having met physical therapy goals, plan is to discharge patient rehab on postoperative day 5. Discharge condition/disposition: Patient will be discharged rehab in stable condition. Discharge medications: Instructions are given on resumption of patient's normal daily medications per primary care recommendation, in addition patient will be prescribed [place] 5 mg/325 mg, Colace 100 mg, ferrous sulfate 325 mg, MiraLAX 17.6 mg, heparin 5000 units. Discharge instructions: 1. Wound care and infection precautions, keep incision dry and covered while showering, no lotions, creams, moisturizers. No soaking, tubs, pools, hottubs. Do not scrub over the incision. 2. Utilize arm sling with regards to right upper extremity, avoid excess use. Right lower extremity is weight-bear as tolerated 3. Ice and elevate when necessary. Do not exceed 20 minutes per hour with ice pack. 4. Utilize compression sleeve until seen at first follow up appointment. 5. Pain meds and anticoagulants per prescription. 6. Pain medication has potential to cause constipation. Increase oral fluid and fiber intake. Contact primary care provider if you have not had a bowel movement within 48 hours after discharge 7. No anti-inflammatory medication until discussed at first post operative visit, this including Motrin, Aleve, Mobic, Diclofenac 9. Follow up with your primary care doctor 7-10 days after discharge. 10. Contact [facility] with any questions, . Procedures: Intramedullary nail right femur, closed reduction right shoulder Patient Condition at Discharge: Stable Plan - Discharge Summary Discharge Rx Participant: No New Discharge Prescriptions: New Docusate [Colace] 100 mg PO DAILY #30 capsule Ferrous Sulfate [Feosol] 325 mg PO BID #12 tab Heparin Sodium,Porcine [Heparin Sodium] 5,000 unit SQ Q12HR #30 vial polyethylene glycoL 3350 [Miralax] 17 gm PO DAILY PRN #21 packet PRN Reason: Constipation Hydrocodone/Acetaminophen [[place] 5-325] 1 each PO Q6HR PRN #28 tab PRN Reason: Pain ALPRAZolam [Xanax] 0.5 mg PO HS PRN #12 tab PRN Reason: Anxiety No Action [place]-3 Fatty Acids/Fish Oil [Fish Oil 1,000 mg Softgel] 1 cap PO HS Calcium Carbonate [Calcium] 600 mg PO HS Aspirin EC [Ecotrin Low Dose] 81 mg PO HS Simvastatin [Zocor] 20 mg PO HS Omeprazole 20 mg PO HS NIFEdipine XL [Procardia Xl] 30 mg PO HS ALPRAZolam [Xanax] 0.5 mg PO HS Ascorbic Acid [Vitamin C] 1,000 mg PO HS Discharge Medication List Ascorbic Acid [Vitamin C] 1,000 mg PO HS 08/22/20 [History] Aspirin EC [Ecotrin Low Dose] 81 mg PO HS 08/22/20 [History] Calcium Carbonate [Calcium] 600 mg PO HS 08/22/20 [History] NIFEdipine XL [Procardia Xl] 30 mg PO HS 08/22/20 [History] [place]-3 Fatty Acids/Fish Oil [Fish Oil 1,000 mg Softgel] 1 cap PO HS 08/22/20 [History] Omeprazole 20 mg PO HS 08/22/20 [History] Simvastatin [Zocor] 20 mg PO HS 08/22/20 [History] ALPRAZolam [Xanax] 0.5 mg PO HS PRN #12 tab 08/28/20 [Rx] Docusate [Colace] 100 mg PO DAILY #30 capsule 08/28/20 [Rx] Ferrous Sulfate [Feosol] 325 mg PO BID #12 tab 08/28/20 [Rx] Heparin Sodium,Porcine [Heparin Sodium] 5,000 unit SQ Q12HR #30 vial 08/28/20 [Rx] Hydrocodone/Acetaminophen [[place] 5-325] 1 each PO Q6HR PRN #28 tab 08/28/20 [Rx] polyethylene glycoL 3350 [Miralax] 17 gm PO DAILY PRN #21 packet 08/28/20 [Rx] Follow up Appointment(s)/Referral(s): China Ramírez MD [Primary Care Provider] - 1-2 days Chris Nielson [NON-STAFF] - As Needed Kiko Jama PAC [PHYSICIAN [employer]] - 2 Weeks Activity/Diet/Wound Care/Special Instructions: Orthopedic discharge instructions: 1. Utilize arm sling of the right upper extremity 2. Weight-bear as tolerated with regards to the right lower extremity 3. Keep incisions dry and covered while showering over the right lower extremity 4. Subcu medication for DVT prophylaxis 5. Plan for follow-up at [facility] in 2 weeks, please contact the office at [phone] with any questions 6. Fátima are okay to be removed on 09/06/2020. Discharge Disposition: TRANSFER TO SNF/ECF
[2020-08-28 10:00] VITALS: RESP 18
--- NOTE | 2020-08-28 10:20 | P.PN ---
Subjective Progress Note Date: 08/28/20 This is an 85-year-old female patient of Dr. Ramírez. Patient presented to the ER after sustaining a fall. Patient reports she tripped over a rug and likely her son was home and was able to call EMS for assistance. Upon arrival is on patient had displaced impacted intertrochanteric fracture of the right femur and acute community minimally displaced fracture of the surgical neck right proximal humerus. Patient has been admitted to orthopedic services and plans for surgical intervention today. Patient has a past medical history of GERD, hyperlipidemia and patient reports she had elevated heart rate and when she was started on Procardia and follows regularly with cardiology services denies any h istory of atrial fibrillation, [place], CVA, COPD or asthma. Cardiac he services have been consulted for medical clearance prior to surgery. Patient's white blood cell also elevated on admit 15.0. This is likely reactive to the fracture. Patient denies any acute complaints. Afebrile. Chest x-ray was completed showing expiratory rotated exam no evident pneumothorax or pleural effusion. Will order UA to rule out any infection. White blood cell improving to 11.0. Upon exam patient does complain of discomfort to right hip and shoulder. Patient denies any chest pain or shortness of breath. Patient denies nausea vomiting or diarrhea. Patient denies any urinary burning or frequency. On 08/24/2020 patient was seen and examined on the medical floor, she is alert and oriented 3 in no distress, she is complaining of right arm pain otherwise she denies any complaints there is no fever or chills no headache or dizziness no chest pain no shortness of breath no cough no nausea or vomiting no abdominal pain no diarrhea no blood in the stools no burning with urination no frequency or urgency and no hematuria. And dropped to 7.2 this morning, 1 unit of red blood cells has been ordered by orthopedic surgery. On 08/25/2020 patient is alert and oriented 3. Patient is complaining of some discomfort but is due for pain medication. Patient denies any chest pain or shortness of breath. Patient denies nausea vomiting or diarrhea. Patient denies any urinary burning or frequency. Patient will be started on Rocephin for urinary tract infection urine culture ordered On 08/26/2020 patient was seen and examined on the medical floor, she is alert and oriented 3 in no distress she is complaining of right shoulder pain otherwise she denies any complaints there is no fever or chills no headache or dizziness no chest pain no shortness of breath no cough no nausea or vomiting no abdominal pain no diarrhea and no urinary symptoms. Hemoglobin today is down to 7.6 On 08/27/2020 patient was seen and examined on the medical floor she is alert and oriented 3 she is complaining of pain in the right shoulder otherwise no complaints there is no fever or chills no headache or dizziness no chest pain no shortness of breath no cough, no nausea or vomiting no abdominal pain no diarrhea no blood in the stools no burning with urination no frequency or urgency and no hematuria. Hemoglobin is up to 10.5 after receiving 1 unit of red blood cell transfusion yesterday On 08/28/2020 patient was seen and examined on the medical floor he is alert and oriented 3 in no distress there is no fever or chills no headache or dizziness no chest pain no shortness of breath no cough no nausea or vomiting no abdominal pain no diarrhea no blood in the stools no burning with urination no frequency or urgency and no hematuria patient was evaluated by orthopedic surgery today and was cleared for discharge. Patient is going to longterm for rehabilitation from medical standpoint will continue her same medication as prior to admission Will add [place] 02/325 one every 6 hours as needed for pain. We will also add Ceftin 500 mg twice daily for 5 more days for urinary tract infection Will follow patient at [facility] Objective - Vital Signs Vital signs: Vital Signs Temp 98.5 F 08/28/20 05:00 Pulse 93 08/28/20 05:00 Resp 18 08/28/20 08:00 BP 102/67 08/28/20 05:00 Pulse Ox 98 08/28/20 05:00 Intake & Output 08/27/20 08/28/20 08/28/20 18:59 06:59 18:59 Intake Total 240 540 Output Total 300 Balance -60 540 Intake: Oral 240 540 Output: Urine 300 Uretheral (Duran) 300 Other: Voiding Method Bedside Commode Bedside Commode Bedside Commode # Voids 1 1 # Bowel Movements 1 - Exam In general patient is alert and oriented 3 in no apparent distress Head normocephalic and atraumatic Neck supple no JVD no goiter Lungs clear to auscultation bilaterally no wheezing or crackles Heart regular rate and rhythm S1-S2, no rub or gallop Abdomen is soft nontender nondistended positive bowel sounds no hepat osplenomegaly Extremities no edema no cyanosis or clubbing Neuro no gross focal neurological deficit - Labs CBC & Chem 7: 08/27/20 13:20 08/26/20 05:06 Labs: Abnormal Lab Results - Last 24 Hours (Table) 08/27/20 Range/Units 13:20 WBC 10.8 H (3.8-10.6) k/uL RBC 3.46 L (3.80-5.40) m/uL Hgb 10.5 L (11.4-16.0) gm/dL Hct 32.5 L (34.0-46.0) % Neutrophils # 8.1 H (1.3-7.7) k/uL Assessment and Plan Assessment: 1. Status post fall with right hip fracture, status post IM nail right intertrochanteric femur fracture and closed reduction of right shoulder. Postop day 2 2. Fracture of the right humerus and dislocation of right shoulder. Orthopedic services are following 3. History of elevated heart rate. Patient is maintained on Procardia. Cardio logy services following 4. History of hyperlipidemia. Maintained on statin 5. History of GERD maintained on Protonix 6. Elevated white blood cell. White blood cell on admit 15.5 this is likely reactive. Patient denies any acute complaints. Chest x-ray has been completed. UA ordered. 7. Expected Postoperative anemia patient received 1 unit of red blood cell transfusion ordered by orthopedic surgery will recheck labs in a.m. improving to 8.0. Patient started on ferrous sulfate 8. Urinary tract infection. Patient started on Rocephin urine culture ordered Medication and labs were reviewed will continue to follow recheck labs in a.m. Anticipate discharge to subacute rehab today.
== END 2020-08-28 14:28 | DRG 481 ==
LOC: EC 14:07 → 6NMEDSUR 16:41 → 3NCARDOBS 08-23 04:47 → 6NMEDSUR 08-23 04:51
PROVIDERS: ADMIT Orthopaedic Surgery; ATTEND Orthopaedic Surgery
PROC: 0QSB06Z Reposition Right Lower Femur with Intramedullary Internal Fixation Device, Open Approach (ICD-10-PCS; principal; 2020-08-23 17:50)
PROC: 0PSCXZZ Reposition Right Humeral Head, External Approach (ICD-10-PCS; principal; 2020-08-23 17:50)
PROC: 30233N1 Transfusion of Nonautologous Red Blood Cells into Peripheral Vein, Percutaneous Approach (ICD-10-PCS; 2020-08-24)
DX: S72.141A Displaced intertrochanteric fracture of right femur, initial encounter for closed fracture (principal); S42.241A 4-part fracture of surgical neck of right humerus, initial encounter for closed fracture; D62 Acute posthemorrhagic anemia; N39.0 Urinary tract infection, site not specified; I95.9 Hypotension, unspecified; E78.5 Hyperlipidemia, unspecified; I08.3 Combined rheumatic disorders of mitral, aortic and tricuspid valves; Z20.828 Contact with and (suspected) exposure to other viral communicable diseases; I10 Essential (primary) hypertension; K44.9 Diaphragmatic hernia without obstruction or gangrene; K21.9 Gastro-esophageal reflux disease without esophagitis; R00.1 Bradycardia, unspecified; Z79.82 Long term (current) use of aspirin; Z79.899 Other long term (current) drug therapy; W01.0XXA Fall on same level from slipping, tripping and stumbling without subsequent striking against object, initial encounter; Z98.42 Cataract extraction status, left eye; Z98.41 Cataract extraction status, right eye; Y92.009 Unspecified place in unspecified non-institutional (private) residence as the place of occurrence of the external cause
CPT/HCPCS: 36415; 51702; 70450; 71045; 72125; 73502; 80053; 81001; 83540; 83550; 85025; 85610; 85730; 86850; 86900; 86901; 86920; 87086; 87635; 93005; 96374; 96375; 96376; 99285

== ENCOUNTER → 2021-04-16 | Outpatient (CLI) | payer MEDICARE, BC ==
--- NOTE | 2021-04-21 12:17 | MM ---
Reason for exam: screening (asymptomatic). Last mammogram was performed 2 years and 3 months ago. History: Patient is postmenopausal. Family history of breast cancer in daughter at age 49. Physical Findings: A clinical breast exam by your physician is recommended on an annual basis and results should be correlated with mammographic findings. MG 3D Screening Mammo W/Cad Bilateral CC and MLO view(s) were taken. Prior study comparison: January 02, 2019, bilateral MG 3d screening mammo w/cad. November 04, 2017, left breast MG 3d work up w/cad LT. There are scattered fibroglandular densities. Benign appearing vascular bilateral calcifications. No significant changes when compared with prior studies. ASSESSMENT: Benign, BI-RAD 2 RECOMMENDATION: Routine screening mammogram of both breasts in 1 year.
== END | disposition home or self-care (01) ==
LOC: RADMAMWWP 14:34
PROVIDERS: ATTEND Family Medicine
DX: Z12.31 Encounter for screening mammogram for malignant neoplasm of breast (principal); Z78.0 Asymptomatic menopausal state; Z80.3 Family history of malignant neoplasm of breast
CPT/HCPCS: 77063; 77067

== ENCOUNTER 2022-04-30 08:04 | Inpatient (IN) | payer MEDICARE, BC ==
[2022-04-30] MEDS ORDERED: SODIUM CHLORIDE 0.9% 1,000 ML IV STA (08:33)
[2022-04-30] MEDS ORDERED: ONDANSETRON 4 MG/2 ML VIAL IVP STA (08:33)
[2022-04-30] MEDS ORDERED: KETOROLAC 15 MG/ML 1 ML VIAL IVP STA (08:34)
--- NOTE | 2022-04-30 08:54 | ED ---
Abdominal Pain HPI - General Chief Complaint: Abdominal Pain Stated Complaint: abd pain and lower back pain Time Seen by Provider: 04/30/22 08:13 Source: patient, family, RN notes reviewed Mode of arrival: ambulatory Limitations: no limitations - History of Present Illness Initial Comments: This is an 87-year-old female who presents to the emergency department with abdominal pain. This started 3 days ago and was primarily in the right lower quadrant. Her primary care provider planned on ordering an ultrasound of the abdomen, as she does have a known hernia in that location. The US is scheduled for tomorrow. Last night, the pain moved to the LUQ, RUQ, and epigastric region with radiation to the mid/upper back and became much worse. Also has associated nausea, and diarrhea. She felt like she could not wait until tomorrow for the ultrasound. Denies any fevers, chills, sore throat, cough, dyspnea, chest pain, palpitations, vomiting, or headaches. MD Complaint: abdominal pain Onset/Timin -: days(s) Location: LUQ, RUQ, epigastric Radiation: back Associated Symptoms: nausea, diarrhea - Related Data Home Medications Medication Instructions Recorded Confirmed Ascorbic Acid [Vitamin C] 1,000 mg PO HS 08/22/20 04/30/22 Aspirin EC [Ecotrin Low Dose] 81 mg PO HS 08/22/20 04/30/22 Calcium Carbonate [Calcium] 600 mg PO HS 08/22/20 04/30/22 NIFEdipine XL [Procardia XL] 30 mg PO HS 08/22/20 04/30/22 [place]-3 Fatty Acids/Fish Oil [Fish 1 cap PO HS 08/22/20 04/30/22 Oil 1,000 mg Softgel] Omeprazole 20 mg PO HS 08/22/20 04/30/22 Simvastatin [Zocor] 20 mg PO HS 08/22/20 04/30/22 ALPRAZolam [Xanax] 0.25 mg PO HS 04/30/22 04/30/22 ALPRAZolam [Xanax] 0.25 mg PO HS PRN 04/30/22 04/30/22 Docusate [Colace] 100 mg PO DAILY PRN 04/30/22 04/30/22 Ferrous Sulfate [Feosol] 325 mg PO HS 04/30/22 04/30/22 Previous Rx's Medication Instructions Recorded polyethylene glycoL 3350 [Miralax] 17 gm PO DAILY PRN #21 packet 08/28/20 Allergies Allergy/AdvReac Type Severity Reaction Status Date / Time No Known Allergies Allergy Verified 04/30/22 10:51 Review of Systems ROS Statement: Those systems with pertinent positive or pertinent negative responses have been documented in the HPI. ROS Other: All systems not noted in ROS Statement are negative. Past Medical History Past Medical History: Hyperlipidemia, Hypertension History of Any Multi-Drug Resistant Organisms: None Reported Additional Past Surgical History / Comment(s): R/L eye cataract surgery Past Psychological History: Anxiety Smoking Status: Never smoker Past Alcohol Use History: None Reported Past Drug Use History: None Reported General Exam Limitations: no limitations General appearance: alert, in no apparent distress Head exam: Present: atraumatic, normocephalic, normal inspection Respiratory exam: Present: normal lung sounds bilaterally. Absent: respiratory distress, wheezes, rales, rhonchi, stridor Cardiovascular Exam: Present: regular rate, normal rhythm, normal heart sounds. Absent: systolic murmur, diastolic murmur, rubs, gallop, clicks GI/Abdominal exam: Present: soft, tenderness (LUQ and RUQ), normal bowel sounds. Absent: distended, guarding, rebound, rigid Back exam: Present: normal inspection, full ROM. Absent: tenderness Neurological exam: Present: alert, oriented X3, CN II-XII intact Psychiatric exam: Present: normal affect, normal mood Skin exam: Present: warm, dry, intact, normal color. Absent: rash Course Vital Signs 04/30/22 04/30/22 04/30/22 08:06 10:20 11:21 Temperature 98.2 F Pulse Rate 71 77 86 Respiratory 18 18 18 Rate Blood Pressure 120/66 126/62 124/76 O2 Sat by Pulse 98 98 99 Oximetry 04/30/22 04/30/22 11:25 12:57 Temperature Pulse Rate 81 76 Respiratory 18 18 Rate Blood Pressure 129/71 117/63 O2 Sat by Pulse 98 93 L Oximetry Medical Decision Making - Medical Decision Making This is an 87-year-old female who presents to the emergency department for ab dominal pain. Lab work reveals mild leukocytosis, dehydration, and elevated liver enzymes. Computed tomography scan of the abdomen and pelvis reveals a dilated gallbladder with circumferential thickening of the gallbladder wall and dilation of the intrahepatic and extrahepatic biliary system. No cholelithiasis definitively identified. Patient's presentation, elevated liver enzymes, and imaging pose concern for choledocholithiasis. I spoke with Dr. Mohr, general surgery and Dr. Vicente, gastroenterology. Patient will be admitted to medicine with Dr. Mohr and Dr. Vicente listed as a consult. MRCP ordered per the request of Dr. Vicente. Given the mild leukocytosis and what appears to be a mild UTI, patient started on 1 g of ceftriaxone daily. This case was discussed in detail with the attending ED physician. Presentation, findings, and treatment plan discussed in detail as well. - Lab Data Result diagrams: 04/30/22 08:42 04/30/22 08:42 Lab Results 04/30/22 04/30/22 04/30/22 Range/Units 08:42 08:42 08:42 WBC 11.3 H (3.8-10.6) k/uL RBC 4.33 (3.80-5.40) m/uL Hgb 13.7 (11.4-16.0) gm/dL Hct 41.4 (34.0-46.0) % MCV 95.6 (80.0-100.0) fL MCH 31.8 (25.0-35.0) pg MCHC 33.2 (31.0-37.0) g/dL RDW 13.0 (11.5-15.5) % Plt Count 306 (150-450) k/uL MPV 9.3 Neutrophils % 87 % Lymphocytes % 7 % Monocytes % 4 % Eosinophils % 1 % Basophils % 0 % Neutrophils # 9.8 H (1.3-7.7) k/uL Lymphocytes # 0.8 L (1.0-4.8) k/uL Monocytes # 0.5 (0-1.0) k/uL Eosinophils # 0.1 (0-0.7) k/uL Basophils # 0.0 (0-0.2) k/uL Sodium 128 L (137-145) mmol/L Potassium 4.0 (3.5-5.1) mmol/L Chloride 95 L (98-107) mmol/L Carbon Dioxide 21 L (22-30) mmol/L Anion Gap 12 mmol/L BUN 28 H (7-17) mg/dL Creatinine 0.62 (0.52-1.04) mg/dL Est GFR (CKD-EPI)AfAm >90 (>60 ml/min/1.73 sqM) Est GFR (CKD-EPI)NonAf 80 (>60 ml/min/1.73 sqM) Glucose 135 H (74-99) mg/dL Plasma Lactic Acid Luisito 1.1 (0.7-2.0) mmol/L Calcium 9.6 (8.4-10.2) mg/dL Total Bilirubin 2.6 H (0.2-1.3) mg/dL AST 388 H (14-36) U/L ALT 227 H (4-34) U/L Alkaline Phosphatase 308 H (38-126) U/L Total Protein 6.9 (6.3-8.2) g/dL Albumin 3.9 (3.5-5.0) g/dL Amylase 47 (30-110) U/L Lipase 40 (23-300) U/L Urine Color Urine Appearance (Clear) Urine pH (5.0-8.0) Ur Specific Theodore (1.001-1.035) Urine Protein (Negative) Urine Glucose (UA) (Negative) Urine Ketones (Negative) Urine Blood (Negative) Urine Nitrite (Negative) Urine Bilirubin (Negative) Urine Urobilinogen (<2.0) mg/dL Ur Leukocyte Esterase (Negative) Urine RBC (0-5) /hpf Urine WBC (0-5) /hpf Ur Squamous Epith Cells (0-4) /hpf Urine Bacteria (None) /hpf Urine Mucus (None) /hpf 04/30/22 Range/Units 10:46 WBC (3.8-10.6) k/uL RBC (3.80-5.40) m/uL Hgb (11.4-16.0) gm/dL Hct (34.0-46.0) % MCV (80.0-100.0) fL MCH (25.0-35.0) pg MCHC (31.0-37.0) g/dL RDW (11.5-15.5) % Plt Count (150-450) k/uL MPV Neutrophils % % Lymphocytes % % Monocytes % % Eosinophils % % Basophils % % Neutrophils # (1.3-7.7) k/uL Lymphocytes # (1.0-4.8) k/uL Monocytes # (0-1.0) k/uL Eosinophils # (0-0.7) k/uL Basophils # (0-0.2) k/uL Sodium (137-145) mmol/L Potassium (3.5-5.1) mmol/L Chloride (98-107) mmol/L Carbon Dioxide (22-30) mmol/L Anion Gap mmol/L BUN (7-17) mg/dL Creatinine (0.52-1.04) mg/dL Est GFR (CKD-EPI)AfAm (>60 ml/min/1.73 sqM) Est GFR (CKD-EPI)NonAf (>60 ml/min/1.73 sqM) Glucose (74-99) mg/dL Plasma Lactic Acid Luis[place] (0.7-2.0) mmol/L Calcium (8.4-10.2) mg/dL Total Bilirubin (0.2-1.3) mg/dL AST (14-36) U/L ALT (4-34) U/L Alkaline Phosphatase (38-126) U/L Total Protein (6.3-8.2) g/dL Albumin (3.5-5.0) g/dL Amylase (30-110) U/L Lipase (23-300) U/L Urine Color Yellow Urine Appearance Clear (Clear) Urine pH 5.5 (5.0-8.0) Ur Specific Theodore 1.038 H (1.001-1.035) Urine Protein Negative (Negative) Urine Glucose (UA) Negative (Negative) Urine Ketones 2+ H (Negative) Urine Blood Negative (Negative) Urine Nitrite Negative (Negative) Urine Bilirubin Negative (Negative) Urine Urobilinogen <2.0 (<2.0) mg/dL Ur Leukocyte Esterase Moderate H (Negative) Urine RBC 2 (0-5) /hpf Urine WBC 19 H (0-5) /hpf Ur Squamous Epith Cells <1 (0-4) /hpf Urine Bacteria Rare H (None) /hpf Urine Mucus Rare H (None) /hpf - EKG Data EKG Comments: Sinus rhythm. Ventricular rate 74 beats per minute, ID interval 152 ms, QRS duration 103 ms, QTC 423 ms. - Radiology Data Radiology results: report reviewed, image reviewed Disposition Clinical Impression: Choledocholithiasis Disposition: ADMITTED IP TO THIS [facility] Referrals: China Ramírez MD [Primary Care Provider] - 1-2 days
[2022-04-30 09:00] LABS: Basophils % (A) 0 %; Eosinophils # (A) 0.1 k/uL (0-0.7); Eosinophils % (A) 1 %; HCT 41.4 % (34.0-46.0); HGB 13.7 gm/dL (11.4-16.0); Lymphocytes # (A) 0.8 k/uL (1.0-4.8); Lymphocytes % (A) 7 %; MCH 31.8 pg (25.0-35.0); MCHC 33.2 g/dL (31.0-37.0); MCV 95.6 fL (80.0-100.0); Mean Platelet Volume 9.3; Monocytes # (A) 0.5 k/uL (0-1.0); Monocytes % (A) 4 %; Neutrophils # (A) 9.8 k/uL (1.3-7.7); Neutrophils % (A) 87 %; Platelet Count 306 k/uL (150-450); RBC 4.33 m/uL (3.80-5.40); WBC 11.3 k/uL (3.8-10.6)
[2022-04-30 09:19] LABS: ALT 227 U/L (4-34); AST 388 U/L (14-36); African American GFR (CKD) >90 (>60 ml/min/1.73 sqM); Albumin 3.9 g/dL (3.5-5.0); Alkaline Phosphatase 308 U/L (38-126); Amylase 47 U/L (30-110); Anion Gap 12 mmol/L; Blood Urea Nitrogen 28 mg/dL (7-17); Calcium 9.6 mg/dL (8.4-10.2); Carbon Dioxide 21 mmol/L (22-30); Chloride 95 mmol/L (98-107); Glucose 135 mg/dL (74-99); Lipase 40 U/L (23-300); Non-African American GFR(CKD) 80 (>60 ml/min/1.73 sqM); Sodium 128 mmol/L (137-145); Total Bilirubin 2.6 mg/dL (0.2-1.3); Total Protein 6.9 g/dL (6.3-8.2)
--- NOTE | 2022-04-30 10:03 | CT ---
EXAMINATION TYPE: CT abdomen pelvis w con CT DLP: 707.8 mGycm, Automated exposure control for dose reduction was used. DATE OF EXAM: 04/30/2022 9:45 AM COMPARISON: None CLINICAL INDICATION:Female, 87 years old with history of LUQ and epigastric pain; Back and abdominal pain. TECHNIQUE: Axial CT of the abdomen and pelvis . Sagittal and coronal reformats were created on a [employer] workstation. Contrast used:100ml mL of Isovue 300 with IV Contrast, Oral contrast used: without Oral Contrast FINDINGS: LOWER CHEST: Pulmonary trunk is dilated up to 3.4 cm. There is mild coronary artery atherosclerosis a nd aortic valve calcifications. There is a moderate to large hiatal hernia. ABDOMEN LIVER: Unremarkable GALLBLADDER AND BILE DUCTS: The gallbladder is distended measuring up to 12.8 x 4.4 cm with circumfer ential wall thickening. No evidence for cholelithiasis. There is intrahepatic biliary ductal dilatati on. The common duct measures up to 12 mm. PANCREAS: Unremarkable. SPLEEN: Unremarkable. ADRENAL GLANDS: Unremarkable. KIDNEYS AND URETERS: No evidence of hydronephrosis or renal calculus. Bilateral renal cysts. PELVIS BLADDER: Unremarkable REPRODUCTIVE: Unremarkable. ABDOMEN & PELVIS STOMACH AND BOWEL: Moderate to large hiatal hernia is present. There is scattered colonic diverticula . PERITONEUM: No evidence of pneumoperitoneum or free fluid. VASCULATURE: Mild atherosclerotic calcifications are present throughout the abdominal aorta and its b ranches. No evidence of aortic aneurysm. MUSCULOSKELETAL: No acute osseous abnormalities. Right proximal femur fixation hardware appears intac t. No acute fractures identified. Multilevel disc degeneration changes throughout the spine. Diffuse osseous demineralization. There is increased lordosis and kyphosis of the spine. LYMPH NODES: No gross evidence for lymphadenopathy. SOFT TISSUE/ABDOMINAL WALL: Unremarkable IMPRESSION: 1. Moderate to large hiatal hernia. 2. Dilated gallbladder with Circumferential thickening of the gallbladder wall and dilation of the i ntrahepatic and extra hepatic biliary system. Correlation with physical exam and serum markers is rec ommended. No cholelithiasis definitively visualized. Consider further evaluation with the MRCP. If th ere is concern for acute cholecystitis consider HIDA. 3. Pulmonary hypertension suggested. 4. Colonic diverticulosis.
[2022-04-30] MEDS ORDERED: HYDROmorphone 0.5 MG/0.5 ML SYRINGE IVP STA (11:08)
[2022-04-30 11:20] LABS: Appearance,Urine Clear (Clear); Bacteria,Urine Rare /hpf; Bilirubin,Urine Negative (Negative); Blood,Urine Negative (Negative); Color,Urine Yellow; Glucose,Urine (UA) Negative (Negative); Ketones,Urine 2+ (Negative); Leukocyte Esterase,Urine Moderate (Negative); Mucus,Urine Rare /hpf; Nitrite,Urine Negative (Negative); PH, Urine 5.5 (5.0-8.0); Protein,Urine Negative (Negative); RBC,Urine 2 /hpf (0-5); Specific Gravity,Urine 1.038 (1.001-1.035); Squamous Epithelial Cell,Urine <1 /hpf (0-4); Urobilinogen,Urine <2.0 mg/dL (<2.0); WBC,Urine 19 /hpf (0-5)
[2022-04-30] MEDS ORDERED: DOCUSATE 100 MG CAP PO PRN (12:58)
[2022-04-30] MEDS ORDERED: HYDROmorphone 0.5 MG/0.5 ML SYRINGE IVP PRN (13:21)
[2022-04-30] MEDS ORDERED: HYDROmorphone 1 MG/ML 1 ML SYRINGE IVP PRN (13:21)
[2022-04-30] MEDS ORDERED: NALOXONE 0.4 MG/ML 1 ML VIAL IV PRN (13:21)
[2022-04-30] MEDS ORDERED: ACETAMINOPHEN TAB 325 MG TAB PO PRN (13:21)
[2022-04-30] MEDS ORDERED: ONDANSETRON 4 MG/2 ML VIAL IVP PRN (13:21)
[2022-04-30] MEDS ORDERED: ALPRAZolam 0.25 MG TAB PO ONE (13:24)
[2022-04-30] MEDS: SODIUM CHLORIDE 0.9% 1,000 ML IV SCH (13:43)
[2022-04-30] MEDS ORDERED: cefTRIAXone IN SWFI 1,000 MG/10 ML SYRINGE IVP ONE (14:00)
--- NOTE | 2022-04-30 14:22 | P.CONS ---
History of Present Illness - Reason for Consult Consult date: 04/30/22 Possible choledocholithiasis Requesting physician: Arianne Stearns - Chief Complaint Abdominal pain - History of Present Illness This is a pleasant 87-year-old female with a past medical history of upper lipidemia and hypertension who presented to the emergency department with complaints of severe upper abdominal pain. She states it started a few days ago and progressively got worse. She did have some a note associated nausea but no vomiting. Denies any previous history of similar symptoms. Denies any previous history of gallbladder disease or peptic ulcer disease. She states that the pain radiated to her back. Sharp in nature. Mostly in the epigastric region. She had a CT of the abdomen and pelvis that reported moderate to large hiatal hernia. Dilated gallbladder with circumferential thickening of the gallbladder wall and dilation of the intrahepatic and extrahepatic biliary system. Correlation with physical exam serum markers recommended. No cholelithiasis definitively visualized. Consider further evaluation with MRCP if there is concern for acute cholecystitis consider HIDA. Pulmonary hypertension suggested and colonic diverticulosis. The patient denies any fevers or chills. She's been afebrile. Labs: WBC 11.3 hemoglobin 13.7 hematocrit 41 platelet count 306,000 sodium 128 potassium 4.0 BUN 28 creatinine 0.62 glucose 135 total bilirubin 2.6 AST 388 ALT 227 alkaline phosphatase 308 amylase 47 lipase 40 Review of Systems REVIEW OF SYSTEMS: CARDIOPULMONARY: No chest pain or shortness of breath. Gastrointestinal: Epigastric pain which radiates to her back. Associated nausea, no vomiting. No nausea or vomiting. No hematemesis, coffee-ground emesis. No rectal bleeding, or melena. GENITOURINARY: No dysuria or hematuria. MUSCULOSKELETAL: Reports normal range of motion. SKIN: No rashes. No jaundice. ENDOCRINE: No chills, fevers. No excessive weight gain or loss. No polydipsia or polyuria. PSYCHIATRIC: Unremarkable. NEUROLOGY: No change in mental status. Denies dizziness, headache. ENT: Vision unremarkable. CONSTITUTIONAL: No recent weight loss. No fever, chills, night sweats. Past Medical History Past Medical History: Hyperlipidemia, Hypertension History of Any Multi-Drug Resistant Organisms: None Reported Additional Past Surgical History / Comment(s): R/L eye cataract surgery Past Psychological History: Anxiety Smoking Status: Never smoker Past Alcohol Use History: None Reported Past Drug Use History: None Reported Medications and Allergies Home Medications Medication Instructions Recorded Confirmed Type Ascorbic Acid [Vitamin C] 1,000 mg PO HS 08/22/20 04/30/22 History Aspirin EC [Ecotrin Low Dose] 81 mg PO HS 08/22/20 04/30/22 History Calcium Carbonate [Calcium] 600 mg PO HS 08/22/20 04/30/22 History NIFEdipine XL [Procardia XL] 30 mg PO HS 08/22/20 04/30/22 History [place]-3 Fatty Acids/Fish Oil [Fish 1 cap PO HS 08/22/20 04/30/22 History Oil 1,000 mg Softgel] Omeprazole 20 mg PO HS 08/22/20 04/30/22 History Simvastatin [Zocor] 20 mg PO HS 08/22/20 04/30/22 History polyethylene glycoL 3350 [Miralax] 17 gm PO DAILY PRN #21 packet 08/28/20 04/30/22 Rx ALPRAZolam [Xanax] 0.25 mg PO HS 04/30/22 04/30/22 History ALPRAZolam [Xanax] 0.25 mg PO HS PRN 04/30/22 04/30/22 History Docusate [Colace] 100 mg PO DAILY PRN 04/30/22 04/30/22 History Ferrous Sulfate [Feosol] 325 mg PO HS 04/30/22 04/30/22 History Allergies Allergy/AdvReac Type Severity Reaction Status Date / Time No Known Allergies Allergy Verified 04/30/22 10:51 Physical Exam Vitals: Vital Signs Temp Pulse Resp BP Pulse Ox 04/30/22 13:46 75 16 132/68 95 04/30/22 12:57 76 18 117/63 93 L 04/30/22 11:25 81 18 129/71 98 04/30/22 11:21 86 18 124/76 99 04/30/22 10:20 77 18 126/62 98 04/30/22 08:06 98.2 F 71 18 120/66 98 Intake and Output 04/29/22 04/30/22 04/30/22 22:59 06:59 14:59 Other: Weight 55.792 kg General appearance: The patient is alert, oriented, appears in no acute distress. HET: Head is normocephalic and atraumatic. Conjunctiva pink. Sclera anicteric. Neck: Supple without lymphadenopathy. Trachea midline. Heart: S1 S2. Regular rate and rhythm. Lungs: Clear to auscultation. Abdomen: Soft, epigastric region tenderness to palpation, nondistended with bowel sounds. No guarding or rigidity. Skin: No rashes. No jaundice. Extremities: Normal skin color and turgor. No pedal edema. Neurological: No focal deficits. Alert and oriented x3. Results CBC & Chem 7: 04/30/22 08:42 04/30/22 08:42 Labs: Abnormal Lab Results - Last 24 Hours (Table) 04/30/22 04/30/22 04/30/22 Range/Units 08:42 08:42 10:46 WBC 11.3 H (3.8-10.6) k/uL Neutrophils # 9.8 H (1.3-7.7) k/uL Lymphocytes # 0.8 L (1.0-4.8) k/uL Sodium 128 L (137-145) mmol/L Chloride 95 L (98-107) mmol/L Carbon Dioxide 21 L (22-30) mmol/L BUN 28 H (7-17) mg/dL Glucose 135 H (74-99) mg/dL Total Bilirubin 2.6 H (0.2-1.3) mg/dL AST 388 H (14-36) U/L ALT 227 H (4-34) U/L Alkaline Phosphatase 308 H (38-126) U/L Ur Specific [place] 1.038 H (1.001-1.035) Urine Ketones 2+ H (Negative) Ur Leukocyte Esterase Moderate H (Negative) Urine WBC 19 H (0-5) /hpf Urine Bacteria Rare H (None) /hpf Urine Mucus Rare H (None) /hpf CT scan - abdomen: report reviewed (As stated in the HPI) Assessment and Plan (1) Abdominal pain Narrative/Plan: 87-year-old female who presented to the emergency department with complaints of right upper quadrant/epigastric pain radiating to her back that started a few d ays ago and significantly got worse over the last 1 day. She didn't she denies any history of peptic ulcer disease or gallbladder disease. revia symptoms. She denies any fevers or chills. She has some associated nausea but no vomiting. CT of the abdomen and pelvis showed dilated gallbladder with circumferential thickening of the gallbladder wall and dilation of the intrahepatic and extrahepatic biliary system. Patient also had an elevated LFTs. Total bilirubin 2.6 AST 388 ALT 227 alkaline phosphatase 308. Symptoms concerning for possible CBD stone obstruction. Will proceed with MRCP. Gen. surgery following as well. Current Visit: Yes Status: Acute Code(s): R10.9 - UNSPECIFIED ABDOMINAL PAIN SNOMED Code(s): 93055627 (2) Elevated LFTs Current Visit: Yes Status: Acute Code(s): R79.89 - OTHER SPECIFIED ABNORMAL FINDINGS OF BLOOD CHEMISTRY SNOMED Code(s): 756143255 Plan: 1. Continue symptomatic and supportive care 2. Agree with antibiotics 3. Clear liquid diet, nothing by mouth after midnight 4. MRCP ordered 5. Pain medications per medicine team 6. Antiemetics as needed 7. Repeat CBC, CMP tomorrow Thank you for this consultation, we will continue to follow. Dr. Kimber Vicente I agree with the dictator's note, documented as a scribe by [employer].
--- NOTE | 2022-04-30 14:56 | P.GSCN ---
History of Present Illness Consult date: 04/30/22 History of present illness: CHIEF COMPLAINT: Abdominal pain HISTORY OF PRESENT ILLNESS: This is a 87-year-old female presents to the hospital with complaints of right upper quadrant abdominal pain over the last 3 days. Patient reports that the pain radiates into her back. She has been nauseated. She has noted increase in pain after eating. She also had chills. Denies any fever. Patient does complain of heartburn symptoms. Computed tomography scan of abdomen and pelvis showed moderate to large hiatal hernia and a dilated gallbladder with circumferential thickening of the gallbladder wall and dilatation of the intrahepatic and extrahepatic biliary system. No cholelithiasis definitively visualized. Patient did have elevated total bilirubin and LFTs. Surgical service consulted for possible choledocholithiasis. Patient denies any prior abdominal surgical history. She does report a cardiac history of leaky heart valves. PAST MEDICAL HISTORY: Hyperlipidemia, hypertension and leaky heart valves, anxiety PAST SURGICAL HISTORY: See list. MEDICATIONS: See list. ALLERGIES: See list. SOCIAL HISTORY: No illicit drug use. REVIEW OF SYSTEMS: CONSTITUTIONAL: Denies fever or chills. HEENT: Denies blurred vision, vision changes, or eye pain. Denies hemoptysis CARDIOVASCULAR: Denies chest pain or pressure. RESPIRATORY: No shortness of breath. GASTROINTESTINAL: See HPI for pertinent findings HEMATOLOGIC: Denies bleeding disorders. GENITOURINARY: Denies any blood in urine or increased urinary frequency. SKIN: Denies pruitis. Denies rash. PHYSICAL EXAM: VITAL SIGNS: Reviewed GENERAL: Well-developed in no acute distress. HEENT: No sclera icterus. Extraocular movements grossly intact. Moist buccal mucosa. Head is atraumatic, normocephalic. No nasal drainage. ABDOMEN: Soft. Nondistended. Tenderness with palpation of the right upper quadrant NEUROLOGIC: Alert and oriented. Cranial nerves II through XII grossly intact. LABORATORY DATA: WBC is 11.3 Hgb 13.7 platelets 306 Sodium 128 potassium 4.0 creatinine 0.62 Lactic acid 1.1 Total bilirubin 2.6 AST 388 ALT 227 alk phos 308 Lipase 40 Urinalysis moderate leukocyte esterase urine WBC is 19 IMAGING: Computed tomography scan abdomen and pelvis moderate to large hiatal hernia and dilated gallbladder with circumferential thickening of the gallbladder wall and dilatation of the intrahepatic and extrahepatic biliary system. No cholelithiasis definitively visualized. Consider further evaluation with MRCP. If there is concern for acute cholecystitis consider HIDA. Pulmonary hypertension suggested. Colonic diverticulosis. ASSESSMENT: 1. Right upper quadrant Abdominal pain 2. Dilated gallbladder with circumferential thickening of the gallbladder wall and dilatation of the intrahepatic an extra hepatic biliary system. 3. Possible choledocholithiasis. Elevated LFTs and total bilirubin level 4. Moderate to large hiatal hernia PLAN: -Further recommendations forthcoming per her surgeon -Downgrade diet to clear liquids. Patient had increase in pain after eating -Patient scheduled for MRCP tomorrow -Patient followed by GI service -Repeat labs in a.m. -Continue antibiotics -Continue pain medication as needed -Continue antiemetics as needed -Continue IV fluids Thank you for this consultation Physician Adjunct Art History Instructor note has been reviewed by physician. Signing provider agrees with the documented findings, assessment, and plan of care. I have personally seen and examined the patient, reviewed the [employer] /PAs history, exam and MDM and agree with the assessment and plan as written. Based on total visit time, I have performed more than 50% of the visit. As above: Patient with upper abdominal pain that radiates to the back. Mild tenderness epigastric region on exam. Suspect choledocholithiasis. Patient does have some shaking chills currently. Cholangitis not excluded. Continue antibiotics. Await MRCP results. We'll order ultrasound as well to evaluate for cholelithiasis. Will follow. Past Medical History Past Medical History: Hyperlipidemia, Hypertension Additional Past Medical History / Comment(s): Abdominal hernia, constipation at times. History of Any Multi-Drug Resistant Organisms: None Reported Past Surgical History: Hernia Repair, Orthopedic Surgery Additional Past Surgical History / Comment(s): R/L eye cataract surgery Past Anesthesia/Blood Transfusion Reactions: No Reported Reaction Additional Past Anesthesia/Blood Transfusion Reaction / Comm: Pt has received blood in past without reaction. Past Psychological History: Anxiety Smoking Status: Never smoker Past Alcohol Use History: None Reported Past Drug Use History: None Reported - Past Family History Father Family Medical History: No Reported History Mother Family Medical History: Osteoarthritis (OA) Medications and Allergies Home Medications Medication Instructions Recorded Confirmed Type Ascorbic Acid [Vitamin C] 1,000 mg PO HS 08/22/20 04/30/22 History Aspirin EC [Ecotrin Low Dose] 81 mg PO HS 08/22/20 04/30/22 History Calcium Carbonate [Calcium] 600 mg PO HS 08/22/20 04/30/22 History NIFEdipine XL [Procardia XL] 30 mg PO HS 08/22/20 04/30/22 History [place]-3 Fatty Acids/Fish Oil [Fish 1 cap PO HS 08/22/20 04/30/22 History Oil 1,000 mg Softgel] Omeprazole 20 mg PO HS 08/22/20 04/30/22 History Simvastatin [Zocor] 20 mg PO HS 08/22/20 04/30/22 History polyethylene glycoL 3350 [Miralax] 17 gm PO DAILY PRN #21 packet 08/28/20 04/30/22 Rx ALPRAZolam [Xanax] 0.25 mg PO HS 04/30/22 04/30/22 History ALPRAZolam [Xanax] 0.25 mg PO HS PRN 04/30/22 04/30/22 History Docusate [Colace] 100 mg PO DAILY PRN 04/30/22 04/30/22 History Ferrous Sulfate [Feosol] 325 mg PO HS 04/30/22 04/30/22 History Allergies Allergy/AdvReac Type Severity Reaction Status Date / Time No Known Allergies Allergy Verified 04/30/22 10:51 Surgical - Exam Vital Signs Temp Pulse Resp BP Pulse Ox 98.2 F 71 18 120/66 98 04/30/22 08:06 04/30/22 08:06 04/30/22 08:06 04/30/22 08:06 04/30/22 08:06 Results - Labs 04/30/22 08:42 04/30/22 08:42 Abnormal Lab Results - Last 24 Hours (Table) 04/30/22 04/30/22 04/30/22 Range/Units 08:42 08:42 10:46 WBC 11.3 H (3.8-10.6) k/uL Neutrophils # 9.8 H (1.3-7.7) k/uL Lymphocytes # 0.8 L (1.0-4.8) k/uL Sodium 128 L (137-145) mmol/L Chloride 95 L (98-107) mmol/L Carbon Dioxide 21 L (22-30) mmol/L BUN 28 H (7-17) mg/dL Glucose 135 H (74-99) mg/dL Total Bilirubin 2.6 H (0.2-1.3) mg/dL AST 388 H (14-36) U/L ALT 227 H (4-34) U/L Alkaline Phosphatase 308 H (38-126) U/L Ur Specific [place] 1.038 H (1.001-1.035) Urine Ketones 2+ H (Negative) Ur Leukocyte Esterase Moderate H (Negative) Urine WBC 19 H (0-5) /hpf Urine Bacteria Rare H (None) /hpf Urine Mucus Rare H (None) /hpf Diabetes panel 04/30/22 Range/Units 08:42 Sodium 128 L (137-145) mmol/L Potassium 4.0 (3.5-5.1) mmol/L Chloride 95 L (98-107) mmol/L Carbon Dioxide 21 L (22-30) mmol/L BUN 28 H (7-17) mg/dL Creatinine 0.62 (0.52-1.04) mg/dL Glucose 135 H (74-99) mg/dL Calcium 9.6 (8.4-10.2) mg/dL AST 388 H (14-36) U/L ALT 227 H (4-34) U/L Alkaline Phosphatase 308 H (38-126) U/L Total Protein 6.9 (6.3-8.2) g/dL Albumin 3.9 (3.5-5.0) g/dL Calcium panel 04/30/22 Range/Units 08:42 Calcium 9.6 (8.4-10.2) mg/dL Albumin 3.9 (3.5-5.0) g/dL Pituitary panel 04/30/22 Range/Units 08:42 Sodium 128 L (137-145) mmol/L Potassium 4.0 (3.5-5.1) mmol/L Chloride 95 L (98-107) mmol/L Carbon Dioxide 21 L (22-30) mmol/L BUN 28 H (7-17) mg/dL Creatinine 0.62 (0.52-1.04) mg/dL Glucose 135 H (74-99) mg/dL Calcium 9.6 (8.4-10.2) mg/dL Adrenal panel 04/30/22 Range/Units 08:42 Sodium 128 L (137-145) mmol/L Potassium 4.0 (3.5-5.1) mmol/L Chloride 95 L (98-107) mmol/L Carbon Dioxide 21 L (22-30) mmol/L BUN 28 H (7-17) mg/dL Creatinine 0.62 (0.52-1.04) mg/dL Glucose 135 H (74-99) mg/dL Calcium 9.6 (8.4-10.2) mg/dL Total Bilirubin 2.6 H (0.2-1.3) mg/dL AST 388 H (14-36) U/L ALT 227 H (4-34) U/L Alkaline Phosphatase 308 H (38-126) U/L Total Protein 6.9 (6.3-8.2) g/dL Albumin 3.9 (3.5-5.0) g/dL
[2022-04-30] MEDS ORDERED: polyethylene glycoL 3350 17 GM POWD.PACK PO PRN (18:32)
--- NOTE | 2022-04-30 18:34 | P.HPIM ---
History of Present Illness H&P Date: 04/30/22 Susan Do, is an 87-year-old female who presented to [facility] emergency room with a chief complaint of abdominal pain, patient is complaining of pain in the epigastric area that started 3 days prior to admission She was evaluated in the emergency room vital examination on presentation revealed a temperature of 98.2 pulse 71 respiration 18 blood pressure 120/66 pulse ox 98% on room air Laboratory data revealed a white blood count of 11.3 hemoglobin 13.7 platelet count 306 sodium 128 potassium 4.0 chloride 95 CO2 21 BUN 28 creatinine 0.62 total bilirubin 2.6 AST 388 ALT 227 alkaline phosphatase 308, urine analysis revealed evidence of urinary tract infection. Testing in the emergency room revealed computed tomography scan of the abdomen and pelvis with contrast done in the emergency room revealed evidence of moderate to large hiatal hernia, dilated gallbladder with circumferential thickening of the gallbladder wall and dilated [place] of the intrahepatic and extrahepatic biliary system further evaluation with MRCP was recommended Patient was admitted to medical floor for further evaluation and treatment, gastroenterology consultation and surgical consultation was requested Past Medical History Past Medical History: Hyperlipidemia, Hypertension Additional Past Medical History / Comment(s): Abdominal hernia, constipation at times. History of Any Multi-Drug Resistant Organisms: None Reported Past Surgical History: Hernia Repair, Orthopedic Surgery Additional Past Surgical History / Comment(s): R/L eye cataract surgery Past Anesthesia/Blood Transfusion Reactions: No Reported Reaction Additional Past Anesthesia/Blood Transfusion Reaction / Comment(s): Pt has received blood in past without reaction. Past Psychological History: Anxiety Smoking Status: Never smoker Past Alcohol Use History: None Reported Past Drug Use History: None Reported - Past Family History Father Family Medical History: No Reported History Mother Family Medical History: Osteoarthritis (OA) Medications and Allergies Home Medications Medication Instructions Recorded Confirmed Type Ascorbic Acid [Vitamin C] 1,000 mg PO HS 08/22/20 04/30/22 History Aspirin EC [Ecotrin Low Dose] 81 mg PO HS 08/22/20 04/30/22 History Calcium Carbonate [Calcium] 600 mg PO HS 08/22/20 04/30/22 History NIFEdipine XL [Procardia XL] 30 mg PO HS 08/22/20 04/30/22 History [place]-3 Fatty Acids/Fish Oil [Fish 1 cap PO HS 08/22/20 04/30/22 History Oil 1,000 mg Softgel] Omeprazole 20 mg PO HS 08/22/20 04/30/22 History Simvastatin [Zocor] 20 mg PO HS 08/22/20 04/30/22 History polyethylene glycoL 3350 [Miralax] 17 gm PO DAILY PRN #21 packet 08/28/20 Rx ALPRAZolam [Xanax] 0.25 mg PO HS 04/30/22 04/30/22 History ALPRAZolam [Xanax] 0.25 mg PO HS PRN 04/30/22 04/30/22 History Docusate [Colace] 100 mg PO DAILY PRN 04/30/22 04/30/22 History Ferrous Sulfate [Feosol] 325 mg PO HS 04/30/22 04/30/22 History Allergies Allergy/AdvReac Type Severity Reaction Status Date / Time No Known Allergies Allergy Verified 04/30/22 10:51 Physical Exam Vitals: Vital Signs Temp Pulse Pulse Resp BP BP Pulse Ox 04/30/22 15:11 97.4 F L 84 16 151/63 92 L 04/30/22 14:25 97.8 F 79 18 131/70 94 L 04/30/22 13:46 75 16 132/68 95 04/30/22 12:57 76 18 117/63 93 L 04/30/22 11:25 81 18 129/71 98 04/30/22 11:21 86 18 124/76 99 04/30/22 10:20 77 18 126/62 98 04/30/22 08:06 98.2 F 71 18 120/66 98 Intake and Output 04/30/22 04/30/22 04/30/22 06:59 14:59 22:59 Other: Weight 55.792 kg In general patient is alert and oriented x 3 in no distress HEENT head normocephalic and atraumatic Neck is supple no JVD no goiter no lymphadenopathy no carotid bruit Chest examination is clear to auscultation no crackles no wheezing Cardiac exam reveals regular heart sounds S1 and S2 no gallops no murmurs Abdomen is soft with tenderness in the epigastric area and right upper quadrant area no hepatomegaly no splenomegaly there is normal bowel sounds no distention no guarding or rigidity Extremity exam reveals no edema no cyanosis or clubbing Neurological examination reveals no gross focal deficits Results CBC & Chem 7: 04/30/22 08:42 04/30/22 08:42 Labs: Abnormal Lab Results - Last 24 Hours (Table) 04/30/22 04/30/22 04/30/22 Range/Units 08:42 08:42 10:46 WBC 11.3 H (3.8-10.6) k/uL Neutrophils # 9.8 H (1.3-7.7) k/uL Lymphocytes # 0.8 L (1.0-4.8) k/uL Sodium 128 L (137-145) mmol/L Chloride 95 L (98-107) mmol/L Carbon Dioxide 21 L (22-30) mmol/L BUN 28 H (7-17) mg/dL Glucose 135 H (74-99) mg/dL Total Bilirubin 2.6 H (0.2-1.3) mg/dL AST 388 H (14-36) U/L ALT 227 H (4-34) U/L Alkaline Phosphatase 308 H (38-126) U/L Ur Specific [place] 1.038 H (1.001-1.035) Urine Ketones 2+ H (Negative) Ur Leukocyte Esterase Moderate H (Negative) Urine WBC 19 H (0-5) /hpf Urine Bacteria Rare H (None) /hpf Urine Mucus Rare H (None) /hpf Thrombosis Risk Factor Assmnt - Choose All That Apply Any of the Below Risk Factors Present?: Yes Other Risk Factors: Yes Each Risk Factor Represents 3 Points: Age 75 years or older Other congenital or acquired thrombophilia - If yes, enter type in comment: No Thrombosis Risk Factor Assessment Total Risk Factor Score: 3 Thrombosis Risk Factor Assessment Level: Moderate Risk Assessment and Plan Plan: Abdominal pain Elevated liver enzymes including AST ALT alkaline phosphatase and elevated total bilirubin Dilated intrahepatic and extrahepatic biliary system on computed tomography scan Evidence of urinary tract infection Will start IV Rocephin and obtain urine culture Underlying history of hypertension Underlying history of hyperlipidemia Underlying history of anxiety disorder Underlying history of gastroesophageal reflux disease At this time patient is admitted to medical floor Home medications reviewed and reordered Surgical consultation and gastroenterology consultation requested Patient started on IV Rocephin For DVT prophylaxis subcu Lovenox For GI prophylaxis pantoprazole Prognosis is guarded will follow closely
[2022-04-30] MEDS: FERROUS SULFATE 325 MG TAB PO SCH (20:16)
[2022-04-30] MEDS: ATORVASTATIN 10 MG TAB PO SCH (20:16)
[2022-04-30] MEDS: ALPRAZolam 0.25 MG TAB PO SCH (20:16)
[2022-04-30] MEDS: ASCORBIC ACID 500 MG TAB PO SCH (20:16)
[2022-04-30] MEDS: ASPIRIN 81 MG PO SCH (20:16)
[2022-04-30] MEDS: PANTOPRAZOLE 40 MG TABLET PO SCH (20:16)
[2022-04-30] MEDS: CALCIUM CARBONATE 500 MG CHEWABLE PO SCH (20:16)
[2022-04-30] MEDS ORDERED: NON FORMULARY DRUG (Omega-3 Fatty Acids/Fish Oil [Fish Oil 1,000 Mg Softgel] 1 EACH Capsul PO SCH (21:00)
[2022-04-30] MEDS: NIFEdipine XL 30 MG TAB.ER.24 PO SCH (21:01)
[2022-05-01] MEDS: SODIUM CHLORIDE 0.9% 1,000 ML IV SCH ×3 (06:05→21:49)
--- NOTE | 2022-05-01 07:26 | US ---
EXAMINATION TYPE: US gallbladder DATE OF EXAM: 05/01/2022 COMPARISON: CT 04/30/2022 CLINICAL HISTORY: Cholecystitis. EXAM MEASUREMENTS: Liver Length: 14.9 cm Gallbladder Wall: 0.9 cm CBD: 1.0 cm Right Kidney: 10.7 x 3.9 x 5.1 cm Pancreas: not well visualized due to midline bowel gas Liver: mildly dilated intrahepatic ducts noted Gallbladder: dilated at 13.3 cm, thickened wall and sludge noted. Evidence for sonographic Post's sign: Yes CBD: dilated at 1.0 cm Right Kidney: lower/lateral cyst measures 2.7 x 2.8 x 3.1 cm. IMPRESSION: 1. Prominence of the intrahepatic biliary tree. 2. Gallbladder hydrops with gallbladder wall thickening and sludge noted. Common bile duct prominent at 1 cm. Correlate for acute cholecystitis.
[2022-05-01] MEDS: ALPRAZolam 0.25 MG TAB PO SCH ×2 (09:35→20:07)
[2022-05-01 10:50] LABS: HCT 35.2 % (37.2-46.3); HGB 11.5 g/dL (12.0-15.0); MCH 30.7 pg (27.0-32.0); MCHC 32.7 g/dL (32.0-37.0); MCV 93.9 fL (80.0-97.0); NRBC Per 100 WBC 0 /100 WBCS (0.0-0.0); Platelet Count 228 X 10*3/uL (140-440); RBC 3.75 X 10*6/uL (4.10-5.20); RDW 13.2 % (11.5-14.5); WBC 23.86 X 10*3/uL (4.50-10.00)
[2022-05-01 11:20] LABS: Acanthocytes 2+; Basophils # (A) 0.08 X 10*3/uL (0.00-0.10); Basophils % (A) 0.3 %; Eosinophils # (A) 0.02 X 10*3/uL (0.04-0.35); Eosinophils % (A) 0.1 %; Immature Grans, Automated 0.9 %; Lymphocytes % (A) 4.2 %; Monocytes # (A) 1.39 X 10*3/uL (0.20-1.00); Monocytes % (A) 5.8 %; Neutrophils # (A) 21.15 X 10*3/uL (1.80-7.70); Neutrophils % (A) 88.7 %
--- NOTE | 2022-05-01 11:21 | MR ---
MRCP HISTORY: Dilated intra and extrahepatic biliary ducts Correlation ultrasound gallbladder 05/01/2022, CT 04/30/2022 Multiplanar multisequence imaging obtained through the biliary system, 3-dimensional reconstructions performed on an alternate workstation and reviewed findings: There is motion on the exam. The liver is borderline enlarged. Gallbladder shows no abnormal filling defect within the lumen, ther e is pericholecystic fluid, gallbladder wall thickening, correlate for cholecystitis. Dilated intra and extrahepatic biliary ducts are present. No definite luminal filling defect is ident ified to suggest common bile duct stone. Pancreatic duct is also dilated centrally. Duodenum shows a thickened wall. No evident pancreatic head mass. Kidneys show associated cortical cysts, probable parapelvic cyst on the left. There is no retroperito nika adenopathy. There is a hiatal hernia with partial intrathoracic stomach. Minimal right pleural e ffusion and associated atelectasis present. Spleen is within normal limits. Adrenal glands are normal . The heart is enlarged. 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 Correlate for cholecystitis.
[2022-05-01 11:28] LABS: African American GFR (CKD) 65.7 (60.0-200.0); Albumin/Globulin Ratio 1.5 (1.60-3.17); Anion Gap 14.4 mmol/L (10.00-18.00); BUN/Creat Ratio 24.11 Ratio (12.00-20.00); Blood Urea Nitrogen 21.7 mg/dL (9.0-27.0); Calcium 8.7 mg/dL (8.7-10.3); Carbon Dioxide 20.6 mmol/L (20.0-27.5); Non-African American GFR(CKD) 56.7 (60.0-200.0); Potassium 3.9 mmol/L (3.5-5.5); Total Bilirubin 2.7 mg/dL (0.30-1.20)
--- NOTE | 2022-05-01 11:34 | P.PN ---
Subjective Progress Note Date: 05/01/22 CHIEF COMPLAINT: Abdominal pain HISTORY OF PRESENT ILLNESS: Patient is lying in bed comfortably. She reports no pain at this time. However on exam she does have tenderness with palpation of the right upper quadrant. She denies any nausea or vomiting. She was able to tolerate the clear liquids better than solid food last night for dinner. She is scheduled for MRCP today. Gallbladder ultrasound demonstrates prominence of the intrahepatic biliary tree. Gallbladder hydrops with gallbladder wall thickening and sludge noted. CBD prominent at 1 cm. Correlate for acute cholecystitis. Positive Post sign. Low-grade temp of 99.8 during the night. BP 96/59. WBC is up from 11.3-23.8 hemoglobin 11.5 platelets 220. CMP pending PHYSICAL EXAM: VITAL SIGNS: Reviewed. GENERAL: Well-developed in no acute distress. HEENT: No sclera icterus. Extraocular movements grossly intact. Moist buccal mucosa. Head is atraumatic, normocephalic. ABDOMEN: Soft. Nondistended. Tenderness right upper quadrant with palpation NEUROLOGIC: Alert and oriented. Cranial nerves II through XII grossly intact. ASSESSMENT: 1. Acute cholecystitis with ultrasound evidence of gallbladder hydrops with gallbladder wall thickening and sludge. 2. Possible choledocholithiasis. Dilated gallbladder with circumferential thickening of the gallbladder wall and dilatation of the intrahepatic an extra hepatic biliary system. Elevated LFTs and total bilirubin 3. Moderate to large hiatal hernia PLAN: -Follow up on MRCP results -Follow up on CMP -Continue antibiotics -Continue pain medication as needed -Further recommendations forthcoming per surgeon Physician Political Science Chair note has been reviewed by physician. Signing provider agrees with the documented findings, assessment, and plan of care. I have personally seen and examined the patient, reviewed the RACE RELATIONS ADVISER /PAs history, exam and MDM and agree with the assessment and plan as written. Based on total visit time, I have performed more than 50% of the visit. As above: Patient denies pain today. Ultrasound shows sludge with biliary dilation and thickened gallbladder wall. Low-grade fever last night of 99.8. White blood cell count increased. ERCP results noted. Plans for ERCP today. Continue antibiotics. If no malignancy suspected possible lap khoi on Wednesday. Objective - Vital Signs Vital signs: Vital Signs Temp 97.7 F 05/01/22 08:00 Pulse 81 05/01/22 08:00 Resp 14 05/01/22 08:00 BP 96/59 05/01/22 08:00 Pulse Ox 95 05/01/22 08:00 FiO2 Intake & Output 04/30/22 05/01/22 05/01/22 18:59 06:59 18:59 Intake Total 575 Balance 575 Weight 55.792 kg Intake: Intake, IV Titration 225 Amount Sodium Chloride 0.9% 1, 225 000 ml @ 75 mls/hr IV . [id number] [facility] Rx#:[id number] Oral 350 - Labs CBC & Chem 7: 05/01/22 07:25 05/01/22 07:25 Labs: Abnormal Lab Results - Last 24 Hours (Table) 04/30/22 05/01/22 Range/Units 10:46 07:25 WBC 23.86 H (4.50-10.00) X 10*3/uL RBC 3.75 L (4.10-5.20) X 10*6/uL Hgb 11.5 L (12.0-15.0) g/dL Hct 35.2 L (37.2-46.3) % Ur Specific [place] 1.038 H (1.001-1.035) Urine Ketones 2+ H (Negative) Ur Leukocyte Esterase Moderate H (Negative) Urine WBC 19 H (0-5) /hpf Urine Bacteria Rare H (None) /hpf Urine Mucus Rare H (None) /hpf
--- NOTE | 2022-05-01 12:28 | P.PN ---
Subjective Progress Note Date: 05/01/22 Susan Do, is an 87-year-old female who presented to [facility] emergency room with a chief complaint of abdominal pain, patient is complaining of pain in the epigastric area that started 3 days prior to admission She was evaluated in the emergency room vital examination on presentation revealed a temperature of 98.2 pulse 71 respiration 18 blood pressure 120/66 pulse ox 98% on room air Laboratory data revealed a white blood count of 11.3 hemoglobin 13.7 platelet count 306 sodium 128 potassium 4.0 chloride 95 CO2 21 BUN 28 creatinine 0.62 total bilirubin 2.6 AST 388 ALT 227 alkaline phosphatase 308, urine analysis revealed evidence of urinary tract infection. Testing in the emergency room revealed computed tomography scan of the abdomen and pelvis with contrast done in the emergency room revealed evidence of moderate to large hiatal hernia, dilated gallbladder with circumferential thickening of the gallbladder wall and dilated Tatian of the intrahepatic and extrahepatic biliary system further evaluation with MRCP was recommended Patient was admitted to medical floor for further evaluation and treatment, gastroenterology consultation and surgical consultation was requested On 05/01/2022 patient was seen and examined on the medical floor she is alert and oriented 3 in no apparent distress she is complaining of right upper quadrant abdominal pain otherwise she denies any complaints there is no fever or chills no headache or dizziness no chest pain no shortness of breath no cough no nausea or vomiting no diarrhea no blood in the stools no burning with urination no frequency or urgency and no hematuria, white blood count is more elevated today to 23.86, Rocephin was discontinued and patient was started on IV Zosyn, patient is scheduled for MRCP today, awaiting further recommendation from gastroenterology and surgery Objective - Vital Signs Vital signs: Vital Signs Temp 97.7 F 05/01/22 08:00 Pulse 81 05/01/22 08:00 Resp 14 05/01/22 08:00 BP 96/59 05/01/22 08:00 Pulse Ox 95 05/01/22 08:00 FiO2 Intake & Output 04/30/22 05/01/22 05/01/22 18:59 06:59 18:59 Intake Total 575 Balance 575 Weight 55.792 kg Intake: Intake, IV Titration 225 Amount Sodium Chloride 0.9% 1, 225 000 ml @ 75 mls/hr IV . [id number] [facility] Rx#:[id number] Oral 350 - Exam In general patient is alert and oriented x 3 in no distress HEENT head normocephalic and atraumatic Neck is supple no JVD no goiter no lymphadenopathy no carotid bruit Chest examination is clear to auscultation no crackles no wheezing Cardiac exam reveals regular heart sounds S1 and S2 no gallops no murmurs Abdomen is soft with tenderness in the epigastric area and right upper quadrant area no hepatomegaly no splenomegaly there is normal bowel sounds no distention no guarding or rigidity Extremity exam reveals no edema no cyanosis or clubbing Neurological examination reveals no gross focal deficits - Labs CBC & Chem 7: 05/01/22 07:25 05/01/22 07:25 Labs: Abnormal Lab Results - Last 24 Hours (Table) 04/30/22 05/01/22 Range/Units 10:46 07:25 WBC 23.86 H (4.50-10.00) X 10*3/uL RBC 3.75 L (4.10-5.20) X 10*6/uL Hgb 11.5 L (12.0-15.0) g/dL Hct 35.2 L (37.2-46.3) % Ur Specific [place] 1.038 H (1.001-1.035) Urine Ketones 2+ H (Negative) Ur Leukocyte Esterase Moderate H (Negative) Urine WBC 19 H (0-5) /hpf Urine Bacteria Rare H (None) /hpf Urine Mucus Rare H (None) /hpf Assessment and Plan Plan: Abdominal pain Elevated liver enzymes including AST ALT alkaline phosphatase and elevated total bilirubin Dilated intrahepatic and extrahepatic biliary system on computed tomography scan Evidence of urinary tract infection Will start IV Rocephin and obtain urine culture Underlying history of hypertension Underlying history of hyperlipidemia Underlying history of anxiety disorder Underlying history of gastroesophageal reflux disease At this time patient is admitted to medical floor Home medications reviewed and reordered Surgical consultation and gastroenterology consultation requested Patient started on IV Rocephin For DVT prophylaxis subcu Lovenox For GI prophylaxis pantoprazole Prognosis is guarded will follow closely
[2022-05-01 13:00] LABS: INR 1.1 (<1.2); Prothrombin Time 11.3 sec (9.0-12.0)
[2022-05-01] MEDS ORDERED: INDOMETHACIN 50MG SUPPOSITORY RECTAL ONE (13:00)
[2022-05-01] MEDS: PIPERACILLIN-TAZOBACTAM 3.375 GM in SODIUM CHLORIDE 0.9% 100 ML IVPB SCH ×2 (13:28→20:10)
[2022-05-01] MEDS: ENOXAPARIN 40 MG/0.4 ML SYRINGE SQ SCH (13:44)
--- NOTE | 2022-05-01 13:56 | P.PN ---
Subjective Progress Note Date: 05/01/22 Principal diagnosis: Abdominal pain This is a pleasant 87-year-old female with a past medical history of upper lipidemia and hypertension who presented to the emergency department with complaints of severe upper abdominal pain. She states it started a few days ago and progressively got worse. She did have some a note associated nausea but no vomiting. Denies any previous history of similar symptoms. Denies any previous history of gallbladder disease or peptic ulcer disease. She states that the pain radiated to her back. Sharp in nature. Mostly in the epigastric region. She had a CT of the abdomen and pelvis that reported moderate to large hiatal hernia. Dilated gallbladder with circumferential thickening of the gallbladder wall and dilation of the intrahepatic and extrahepatic biliary system. Correlation with physical exam serum markers recommended. No cholelithiasis definitively visualized. Consider further evaluation with MRCP if there is concern for acute cholecystitis consider HIDA. Pulmonary hypertension suggested and colonic diverticulosis. The patient denies any fevers or chills. She's been afebrile. 05/01/2022: Patient seen and examined his follow-up. She went down for her MRCP today. She actually is reporting that her abdominal pain has improved. She is stating that she is hungry. Report states dilated intra-and extrahepatic merlene iary ducts are present. No definite luminal filling defect is identified to suggest common bile duct stone. Pancreatic duct is also dilated centrally. The duodenum shows a thickened wall. No evident pancreatic head mass. 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 Correlate for cholecystitis. Patient is afebrile. Denies any nausea or vomiting. She did have elevation in her WBC up to 23.8. Total bilirubin 2.7 AST 122 ALT 146 alkaline phosphatase 218 Objective - Vital Signs Vital signs: Vital Signs Temp 97.7 F 05/01/22 08:00 Pulse 81 05/01/22 08:00 Resp 14 05/01/22 08:00 BP 96/59 05/01/22 08:00 Pulse Ox 95 05/01/22 08:00 FiO2 Intake & Output 04/30/22 05/01/22 05/01/22 18:59 06:59 18:59 Intake Total 575 Balance 575 Weight 55.792 kg Intake: Intake, IV Titration 225 Amount Sodium Chloride 0.9% 1, 225 000 ml @ 75 mls/hr IV . [id number] [facility] Rx#:[id number] Oral 350 - Exam General appearance: The patient is alert, oriented, appears in no acute distress. HET: Head is normocephalic and atraumatic. Conjunctiva pink. Sclera anicteric. Neck: Supple without lymphadenopathy. Abdomen: Soft, epigastric and right upper quadrant tenderness, nondistended with bowel sounds. No guarding or rigidity. Extremities: Normal skin color and turgor. No pedal edema Skin: No rashes, no jaundice Neurological: No focal deficits. Alert and oriented x 3. - Labs CBC & Chem 7: 05/01/22 07:25 05/01/22 07:25 Labs: Abnormal Lab Results - Last 24 Hours (Table) 05/01/22 05/01/22 Range/Units 07:25 07:25 WBC 23.86 H (4.50-10.00) X 10*3/uL RBC 3.75 L (4.10-5.20) X 10*6/uL Hgb 11.5 L (12.0-15.0) g/dL Hct 35.2 L (37.2-46.3) % Immature Gran # 0.22 H (0.00-0.04) X 10*3/uL Neutrophils # 21.15 H (1.80-7.70) X 10*3/uL Monocytes # 1.39 H (0.20-1.00) X 10*3/uL Eosinophils # 0.02 L (0.04-0.35) X 10*3/uL Sodium 133 L (135-145) mmol/L Est GFR (CKD-EPI)NonAf 56.7 L (60.0-200.0) BUN/Creatinine Ratio 24.11 H (12.00-20.00) Ratio Total Bilirubin 2.70 H (0.30-1.20) mg/dL AST 122 H (13-35) U/L ALT 146 H (8-44) U/L Alkaline Phosphatase 218 H (41-126) U/L Total Protein 5.0 L (6.2-8.2) g/dL Albumin 3.0 L (3.8-4.9) g/dL Albumin/Globulin Ratio 1.50 L (1.60-3.17) g/dL Assessment and Plan (1) Abdominal pain Narrative/Plan: 87-year-old female who presented to the emergency department with complaints of right upper quadrant/epigastric pain radiating to her back that started a few days ago and significantly got worse over the last 1 day. She didn't she denies any history of peptic ulcer disease or gallbladder disease. revia symptoms. She denies any fevers or chills. She has some associated nausea but no vomiting. CT of the abdomen and pelvis showed dilated gallbladder with circumferential thickening of the gallbladder wall and dilation of the intrahepatic and extrahepatic biliary system. Patient also had an elevated LFTs. Total bilirubin 2.6 AST 388 ALT 227 alkaline phosphatase 308. Symptoms concerning for possible CBD stone obstruction. Will proceed with MRCP. Gen. surgery following as well. MRCP reports findings that could be due to ampullary tumor, distal common bile duct obstruction. Correlate for cholecystitis. WBC is increasing. We will proceed with ERCP. Gen. surgery is following and plan for cholecystectomy Wednesday. Continue antibiotics. Current Visit: Yes Status: Acute Code(s): R10.9 - UNSPECIFIED ABDOMINAL PAIN SNOMED Code(s): 84209891 (2) Elevated LFTs Current Visit: Yes Status: Acute Code(s): R79.89 - OTHER SPECIFIED ABNORMAL FINDINGS OF BLOOD CHEMISTRY SNOMED Code(s): 113532183 Plan: 1. Continue symptomatic and supportive care 2. Continue antibiotics 3. Nothing by mouth 4. MRCP ordered and reviewed 5. Pain medications per medicine team 6. Antiemetics as needed 7. We'll proceed with ERCP this afternoon. Procedure discussed with patient including risks and benefits. Patient willing to proceed 8. PT/INR ordered 9. Surgical service is following, patient is tentatively scheduled for cholecystectomy on Wednesday Thank you for allowing us to participate in the care of the patient, the GI service will sign off, gastroenterology will not be available at the hospital this weekend and through next week. If further evaluation by gastroenterology is required the patient will need transfer as per the primary team's discretion. Dr. Kimber Vicente I agree with the dictator's note, documented as a scribe by [employer].
[2022-05-01 14:44] VITALS: BMI 24.8
[2022-05-01] MEDS ORDERED: LIDOCAINE 2% INJ 20 MG/ML (2 ML VIAL) ONE (15:16)
[2022-05-01] MEDS ORDERED: GLUCAGON 1 MG/ML VIAL ONE (15:16)
[2022-05-01] MEDS ORDERED: PROPOFOL 10 MG/ML 20 ML VIAL IV ONE (15:16)
[2022-05-01] MEDS ORDERED: KETAMINE 10 MG/ML 20 ML VIAL ONE (15:16)
[2022-05-01] MEDS ORDERED: MIDAZOLAM 2 MG/2 ML VIAL ONE (15:16)
[2022-05-01] MEDS ORDERED: fentaNYL (PF) 50 MCG/ML 2 ML AMP ONE (15:16)
[2022-05-01] MEDS ORDERED: IV FLUID CONTINUATION 500 ML IV ONE (15:16)
[2022-05-01] MEDS ORDERED: IOPAMIDOL-300 50ML BTL MISCELLANE ONE (15:30)
--- NOTE | 2022-05-01 15:55 | P.PCN ---
Date of Procedure: 05/01/22 Procedure(s) Performed: Brief history: Patient is a 87 year-old pleasant lady scheduled for an ERCP as part of evaluation of abdominal pain and elevated serum transaminases and mild for the last 2 days' duration. She did have CT of abdomen and pelvis done that showed distended gallbladder and dilated intra-and extra hepatic bili system. She was started on antibiotics and this morning repeat labs shows an elevated LFTs and bilirubin but her white count increased and because of clinical suspicion for ascending cholangitis she is scheduled for an ERCP. Procedure performed: ERCP with biliary sphincterotomy and balloon sweep Preoperative diagnoses: Elevated LFTs/jaundice/possible ascending colon IV sedation per anesthesia: Procedure: After informed consent was obtained from the patient and after the risks benefits and complications including bleeding perforation and pancreatitis explained in detail the patient was brought into the endoscopy unit. The patient was placed in prone position and IV conscious sedation was administered by anesthesia under continuous monitoring. The Olympus side-viewing duodenoscope was then inserted into the mouth and esophagus intubated without any difficulty. The scope was gradually advanced into the stomach and duodenum. The major papilla was identified without any difficulty. Initial cannulation resulted in opacification of the common bile duct that appeared slightly dilated measuring 1 cm in diameter. There was a small faint filling defect noted in the distal common bile duct. No intrahepatic bili ductal dilation seen. At this time I proceeded with biliary sphincterotomy after the catheter was exchanged over a guidewire. The sphincterotomy was performed at level about position and was extended to 1 cm. Finding this 11 mm balloon was passed over the guidewire into the proximal CBD and was gently inflated and withdrawn and did not see any stones exiting the ampulla. Occlusion cholangio-was performed and no other filling defects were noted and at this time the procedure was terminated and the patient tolerated the procedure well. Pancreatic that was Was intentionally not cannulated during the entire procedure and the patient tolerated the procedure well. Impression: Dilated common bile duct measuring 1 cm in diameter with a faint filling defect in the distal CBD status post biliary sphincterotomy with balloon sweep as described above. No stone seen exiting the ampulla Pancreatic duct intentionally not cannulated Recommendations: The findings of this examination were discussed with the patient as well as a family. She will continue with broad spectrum antibiotics. Monitor LFTs closely. Clear liquid diet today..
--- NOTE | 2022-05-01 16:20 | FL ---
Fluoroscopy HISTORY: ERCP, cholangitis 58 seconds fluoroscopy time supplied to the referring clinician. 2 intraoperative C-arm images docum ent the procedure. See dictated report from gastroenterology.
[2022-05-01] MEDS: PANTOPRAZOLE 40 MG TABLET PO SCH (20:07)
[2022-05-01] MEDS: ASCORBIC ACID 500 MG TAB PO SCH (20:07)
[2022-05-01] MEDS: CALCIUM CARBONATE 500 MG CHEWABLE PO SCH (20:07)
[2022-05-01] MEDS: NIFEdipine XL 30 MG TAB.ER.24 PO SCH (20:08)
[2022-05-01] MEDS: ATORVASTATIN 10 MG TAB PO SCH (20:08)
[2022-05-01] MEDS: FERROUS SULFATE 325 MG TAB PO SCH (20:08)
[2022-05-01] MEDS: ASPIRIN 81 MG PO SCH (20:08)
--- NOTE | 2022-05-01 23:30 | P.CONS ---
History of Present Illness - Reason for Consult Consult date: 05/01/22 Cholecystitis Requesting physician: Shanika Avalos - Chief Complaint Abdominal pain x few days - History of Present Illness Patient is a 87-year-old female presenting to the hospital yesterday for evaluation of abdominal pain that apparently has been going on for the last 3 days before presentation to the hospital patient complaining of pain worse in the right upper quadrant area describing to be dull aching to sharp moderate intensity head no radiation with associated nausea but no vomiting no diarrhea no chest pain shortness of breath or cough on presentation to the hospital patient was afebrile he did have a low-grade fever of 99.8 F last night no fever since that patient was not hypotensive did have white count of 11.3 which is up to 23.86 today patient also have a normal kidney function liver enzymes were elevated urine has been mildly positive patient did have a CT of abdominal pelvis dilated gallbladder with circumferential thickening of the gallbladder wall no stools requested MRCP which was completed this morning there is concern for possible ampullary tumor distal CBD obstruction, patient is s/p ERCP this afternoon infectious disease was consulted for further management of antibiotic therapy Review of Systems Positive point has been mentioned in the HPI rest of the systems are negative Past Medical History Past Medical History: Hyperlipidemia, Hypertension Additional Past Medical History / Comment(s): Abdominal hernia, constipation at times. History of Any Multi-Drug Resistant Organisms: None Reported Past Surgical History: Hernia Repair, Orthopedic Surgery Additional Past Surgical History / Comment(s): R/L eye cataract surgery Past Anesthesia/Blood Transfusion Reactions: No Reported Reaction Additional Past Anesthesia/Blood Transfusion Reaction / Comm: Pt has received blood in past without reaction. Past Psychological History: Anxiety Smoking Status: Never smoker Past Alcohol Use History: None Reported Past Drug Use History: None Reported - Past Family History Father Family Medical History: No Reported History Mother Family Medical History: Osteoarthritis (OA) Medications and Allergies Home Medications Medication Instructions Recorded Confirmed Type Ascorbic Acid [Vitamin C] 1,000 mg PO HS 08/22/20 04/30/22 History Aspirin EC [Ecotrin Low Dose] 81 mg PO HS 08/22/20 04/30/22 History Calcium Carbonate [Calcium] 600 mg PO HS 08/22/20 04/30/22 History NIFEdipine XL [Procardia XL] 30 mg PO HS 08/22/20 04/30/22 History [place]-3 Fatty Acids/Fish Oil [Fish 1 cap PO HS 08/22/20 04/30/22 History Oil 1,000 mg Softgel] Omeprazole 20 mg PO HS 08/22/20 04/30/22 History Simvastatin [Zocor] 20 mg PO HS 08/22/20 04/30/22 History polyethylene glycoL 3350 [Miralax] 17 gm PO DAILY PRN #21 packet 08/28/20 04/30/22 Rx ALPRAZolam [Xanax] 0.25 mg PO HS 04/30/22 04/30/22 History ALPRAZolam [Xanax] 0.25 mg PO HS PRN 04/30/22 04/30/22 History Docusate [Colace] 100 mg PO DAILY PRN 04/30/22 04/30/22 History Ferrous Sulfate [Feosol] 325 mg PO HS 04/30/22 04/30/22 History HYDROcodone/APAP 5-325MG [[place] 1 tab PO Q6HR PRN 3 Days #10 tab 05/06/22 Rx 5-325] cefUROXime axetiL [Cefuroxime] 500 mg PO BID 20 Days #10 tab 05/06/22 Rx Allergies Allergy/AdvReac Type Severity Reaction Status Date / Time No Known Allergies Allergy Verified 05/05/22 12:32 Physical Exam Vitals: Vital Signs Temp Pulse Resp BP Pulse Ox 05/01/22 12:07 88 106/62 05/01/22 08:00 97.7 F 81 14 96/59 95 05/01/22 07:25 81 20 05/01/22 02:00 97.7 F 81 22 91/59 94 L 04/30/22 20:00 62 04/30/22 18:45 99.8 F H 62 16 100/64 98 04/30/22 15:11 97.4 F L 84 16 151/63 92 L Intake and Output 04/30/22 05/01/22 05/01/22 22:59 06:59 14:59 Intake Total 575 Balance 575 Intake: Intake, IV Titration 225 Amount Sodium Chloride 0.9% 1, 225 000 ml @ 75 mls/hr IV . [id number] [facility] Rx#:[id number] Oral 350 GENERAL DESCRIPTION: Elderly female lying in bed, no distress. No tachypnea or accessory muscle of respiration use. HEENT: Shows Pallor , no scleral icterus. Oral mucous membrane is dry. No pharyngeal erythema or thrush NECK: Trachea central, no thyromegaly. LUNGS: Unlabored breathing. Clear to auscultation anteriorly. No wheeze or crackle. HEART: S1, S2, regular rate and rhythm. No loud murmur ABDOMEN: Soft, right upper quadrant tenderness , no guarding or rigidity, no organomegaly EXTREMITIES: No edema of feet. SKIN: No rash, no masses palpable. NEUROLOGICAL: The patient is awake, alert, oriented x3, mood and affect normal. Results CBC & Chem 7: 05/06/22 10:36 05/06/22 10:36 Labs: Abnormal Lab Results - Last 24 Hours (Table) 05/01/22 05/01/22 Range/Units 07:25 07:25 WBC 23.86 H (4.50-10.00) X 10*3/uL RBC 3.75 L (4.10-5.20) X 10*6/uL Hgb 11.5 L (12.0-15.0) g/dL Hct 35.2 L (37.2-46.3) % Immature Gran # 0.22 H (0.00-0.04) X 10*3/uL Neutrophils # 21.15 H (1.80-7.70) X 10*3/uL Monocytes # 1.39 H (0.20-1.00) X 10*3/uL Eosinophils # 0.02 L (0.04-0.35) X 10*3/uL Sodium 133 L (135-145) mmol/L Est GFR (CKD-EPI)NonAf 56.7 L (60.0-200.0) BUN/Creatinine Ratio 24.11 H (12.00-20.00) Ratio Total Bilirubin 2.70 H (0.30-1.20) mg/dL AST 122 H (13-35) U/L ALT 146 H (8-44) U/L Alkaline Phosphatase 218 H (41-126) U/L Total Protein 5.0 L (6.2-8.2) g/dL Albumin 3.0 L (3.8-4.9) g/dL Albumin/Globulin Ratio 1.50 L (1.60-3.17) g/dL Assessment and Plan (1) Cholecystitis Status: Acute Code(s): K81.9 - CHOLECYSTITIS, UNSPECIFIED SNOMED Code(s): 24170267 (2) Choledocholithiasis Status: Acute Code(s): K80.50 - CALCULUS OF BILE DUCT W/O CHOLANGITIS OR CHOLECYST W/O OBST SNOMED Code(s): 662288707 Plan: 1patient presented to hospital with right upper quadrant pain in this patient has been diagnosed with choledocholithiasis and cholecystitis in this patient who is status post ERCP no mention of any stone patient did have a elevated white count and low-grade fever likely component of sepsis secondary to the enteric gram-negative francis. 2patient to continue with Zosyn 3.375 g every 8 hours while waiting for the culture to finalize. 3gentle IV fluid. We will follow on clinical condition and cultures to further adjust medication if needed Thank you for this consultation will follow this patient along with you Time with Patient: Greater than 30
[2022-05-02] MEDS: PIPERACILLIN-TAZOBACTAM 3.375 GM in SODIUM CHLORIDE 0.9% 100 ML IVPB SCH ×3 (06:25→20:22)
[2022-05-02] MEDS: ENOXAPARIN 40 MG/0.4 ML SYRINGE SQ SCH (09:11)
--- NOTE | 2022-05-02 10:51 | P.GSCN ---
History of Present Illness Consult date: 05/02/22 Reason for Consult: Choledocholithiasis History of present illness: Is an 87-year-old female who is status post ERCP for choledocholithiasis. It appears a filling defect was removed from the common bile duct. Patient is currently resting comfortably in her bed. She denies any significant abdominal pain. Past Medical History Past Medical History: Hyperlipidemia, Hypertension Additional Past Medical History / Comment(s): Abdominal hernia, constipation at times. History of Any Multi-Drug Resistant Organisms: None Reported Past Surgical History: Hernia Repair, Orthopedic Surgery Additional Past Surgical History / Comment(s): R/L eye cataract surgery Past Anesthesia/Blood Transfusion Reactions: No Reported Reaction Additional Past Anesthesia/Blood Transfusion Reaction / Comm: Pt has received blood in past without reaction. Past Psychological History: Anxiety Smoking Status: Never smoker Past Alcohol Use History: None Reported Past Drug Use History: None Reported - Past Family History Father Family Medical History: No Reported History Mother Family Medical History: Osteoarthritis (OA) Medications and Allergies Home Medications Medication Instructions Recorded Confirmed Type Ascorbic Acid [Vitamin C] 1,000 mg PO HS 08/22/20 04/30/22 History Aspirin EC [Ecotrin Low Dose] 81 mg PO HS 08/22/20 04/30/22 History Calcium Carbonate [Calcium] 600 mg PO HS 08/22/20 04/30/22 History NIFEdipine XL [Procardia XL] 30 mg PO HS 08/22/20 04/30/22 History Vanduser-3 Fatty Acids/Fish Oil [Fish 1 cap PO HS 08/22/20 04/30/22 History Oil 1,000 mg Softgel] Omeprazole 20 mg PO HS 08/22/20 04/30/22 History Simvastatin [Zocor] 20 mg PO HS 08/22/20 04/30/22 History polyethylene glycoL 3350 [Miralax] 17 gm PO DAILY PRN #21 packet 08/28/20 04/30/22 Rx ALPRAZolam [Xanax] 0.25 mg PO HS 04/30/22 04/30/22 History ALPRAZolam [Xanax] 0.25 mg PO HS PRN 04/30/22 04/30/22 History Docusate [Colace] 100 mg PO DAILY PRN 04/30/22 04/30/22 History Ferrous Sulfate [Feosol] 325 mg PO HS 04/30/22 04/30/22 History Allergies Allergy/AdvReac Type Severity Reaction Status Date / Time No Known Allergies Allergy Verified 04/30/22 10:51 Surgical - Exam Vital Signs Temp Pulse Resp BP Pulse Ox 98.2 F 71 18 120/66 98 04/30/22 08:06 04/30/22 08:06 04/30/22 08:06 04/30/22 08:06 04/30/22 08:06 - General well developed, well nourished, no distress - Eyes PERRL - ENT normal pinna - Neck no masses - Respiratory normal expansion - Cardiovascular Rhythm: regular - Abdomen Mild right quadrant pain Abdomen: soft Results - Labs 05/01/22 07:25 05/01/22 07:25 Abnormal Lab Results - Last 24 Hours (Table) 05/01/22 05/01/22 Range/Units 07:25 07:25 WBC 23.86 H (4.50-10.00) X 10*3/uL RBC 3.75 L (4.10-5.20) X 10*6/uL Hgb 11.5 L (12.0-15.0) g/dL Hct 35.2 L (37.2-46.3) % Immature Gran # 0.22 H (0.00-0.04) X 10*3/uL Neutrophils # 21.15 H (1.80-7.70) X 10*3/uL Monocytes # 1.39 H (0.20-1.00) X 10*3/uL Eosinophils # 0.02 L (0.04-0.35) X 10*3/uL Sodium 133 L (135-145) mmol/L Est GFR (CKD-EPI)NonAf 56.7 L (60.0-200.0) BUN/Creatinine Ratio 24.11 H (12.00-20.00) Ratio Total Bilirubin 2.70 H (0.30-1.20) mg/dL AST 122 H (13-35) U/L ALT 146 H (8-44) U/L Alkaline Phosphatase 218 H (41-126) U/L Total Protein 5.0 L (6.2-8.2) g/dL Albumin 3.0 L (3.8-4.9) g/dL Albumin/Globulin Ratio 1.50 L (1.60-3.17) g/dL Microbiology - Last 24 Hours (Table) 05/01/22 06:00 Urine Culture - Preliminary Urine,Voided 04/30/22 13:30 Blood Culture - Preliminary Blood No Growth after 24 hours 04/30/22 13:15 Blood Culture - Preliminary Blood No Growth after 24 hours Diabetes panel 05/01/22 Range/Units 07:25 Sodium 133 L (135-145) mmol/L Potassium 3.9 (3.5-5.5) mmol/L Chloride 98 (96-109) mmol/L Carbon Dioxide 20.6 (20.0-27.5) mmol/L BUN 21.7 (9.0-27.0) mg/dL Creatinine 0.9 (0.6-1.5) mg/dL Glucose 88 (70-110) mg/dL Calcium 8.7 (8.7-10.3) mg/dL AST 122 H (13-35) U/L ALT 146 H (8-44) U/L Alkaline Phosphatase 218 H (41-126) U/L Total Protein 5.0 L (6.2-8.2) g/dL Albumin 3.0 L (3.8-4.9) g/dL Calcium panel 05/01/22 Range/Units 07:25 Calcium 8.7 (8.7-10.3) mg/dL Albumin 3.0 L (3.8-4.9) g/dL Pituitary panel 05/01/22 Range/Units 07:25 Sodium 133 L (135-145) mmol/L Potassium 3.9 (3.5-5.5) mmol/L Chloride 98 (96-109) mmol/L Carbon Dioxide 20.6 (20.0-27.5) mmol/L BUN 21.7 (9.0-27.0) mg/dL Creatinine 0.9 (0.6-1.5) mg/dL Glucose 88 (70-110) mg/dL Calcium 8.7 (8.7-10.3) mg/dL Adrenal panel 05/01/22 Range/Units 07:25 Sodium 133 L (135-145) mmol/L Potassium 3.9 (3.5-5.5) mmol/L Chloride 98 (96-109) mmol/L Carbon Dioxide 20.6 (20.0-27.5) mmol/L BUN 21.7 (9.0-27.0) mg/dL Creatinine 0.9 (0.6-1.5) mg/dL Glucose 88 (70-110) mg/dL Calcium 8.7 (8.7-10.3) mg/dL Total Bilirubin 2.70 H (0.30-1.20) mg/dL AST 122 H (13-35) U/L ALT 146 H (8-44) U/L Alkaline Phosphatase 218 H (41-126) U/L Total Protein 5.0 L (6.2-8.2) g/dL Albumin 3.0 L (3.8-4.9) g/dL Assessment and Plan Assessment: History of choledocholithiasis. Patient's elevated white count was concerning for cholangitis. Patient appears to be Z. Her labs are still pending. Morning. Patient will require cholecystectomy at some point.
[2022-05-02 11:46] LABS: Basophils # (A) 0.09 X 10*3/uL (0.00-0.10); Basophils % (A) 0.5 %; Eosinophils # (A) 0.22 X 10*3/uL (0.04-0.35); Eosinophils % (A) 1.3 %; HCT 34.3 % (37.2-46.3); HGB 10.8 g/dL (12.0-15.0); Immature Grans, Automated 2.6 %; Lymphocytes # (A) 1.48 X 10*3/uL (0.90-5.00); Lymphocytes % (A) 8.7 %; MCH 29.8 pg (27.0-32.0); MCHC 31.5 g/dL (32.0-37.0); MCV 94.5 fL (80.0-97.0); Monocytes % (A) 5.9 %; NRBC Per 100 WBC 0 /100 WBCS (0.0-0.0); Neutrophils # (A) 13.85 X 10*3/uL (1.80-7.70); Platelet Count 237 X 10*3/uL (140-440); RBC 3.63 X 10*6/uL (4.10-5.20); RDW 13.3 % (11.5-14.5); WBC 17.09 X 10*3/uL (4.50-10.00)
[2022-05-02 13:10] LABS: Albumin 2.7 g/dL (3.8-4.9); Albumin/Globulin Ratio 1.42 (1.60-3.17); Anion Gap 16.5 mmol/L (10.00-18.00); Blood Urea Nitrogen 25.9 mg/dL (9.0-27.0); Calcium 8.6 mg/dL (8.7-10.3); Carbon Dioxide 16.5 mmol/L (20.0-27.5); Globulin 1.9 g/dL (1.6-3.3); Non-African American GFR(CKD) 76.8 (60.0-200.0); Potassium 3.5 mmol/L (3.5-5.5); Total Bilirubin 1.3 mg/dL (0.30-1.20); Total Protein 4.6 g/dL (6.2-8.2)
[2022-05-02 13:52] LABS: Glucose,Whole Blood 66 mg/dL (70-110)
[2022-05-02 14:17] LABS: Glucose,Whole Blood 79 mg/dL (70-110)
--- NOTE | 2022-05-02 16:37 | P.PN ---
Subjective Progress Note Date: 05/02/22 Susan Do, is an 87-year-old female who presented to [facility] emergency room with a chief complaint of abdominal pain, patient is complaining of pain in the epigastric area that started 3 days prior to admission She was evaluated in the emergency room vital examination on presentation revealed a temperature of 98.2 pulse 71 respiration 18 blood pressure 120/66 pulse ox 98% on room air Laboratory data revealed a white blood count of 11.3 hemoglobin 13.7 platelet count 306 sodium 128 potassium 4.0 chloride 95 CO2 21 BUN 28 creatinine 0.62 total bilirubin 2.6 AST 388 ALT 227 alkaline phosphatase 308, urine analysis revealed evidence of urinary tract infection. Testing in the emergency room revealed computed tomography scan of the abdomen and pelvis with contrast done in the emergency room revealed evidence of moderate to large hiatal hernia, dilated gallbladder with circumferential thickening of the gallbladder wall and dilated Tatian of the intrahepatic and extrahepatic biliary system further evaluation with MRCP was recommended Patient was admitted to medical floor for further evaluation and treatment, gastroenterology consultation and surgical consultation was requested On 05/01/2022 patient was seen and examined on the medical floor she is alert and oriented 3 in no apparent distress she is complaining of right upper quadrant abdominal pain otherwise she denies any complaints there is no fever or chills no headache or dizziness no chest pain no shortness of breath no cough no nausea or vomiting no diarrhea no blood in the stools no burning with urination no frequency or urgency and no hematuria, white blood count is more elevated today to 23.86, Rocephin was discontinued and patient was started on IV Zosyn, patient is scheduled for MRCP today, awaiting further recommendation from gastroenterology and surgery On 05/02/2022 patient was seen and examined on the medical floor, she is alert and oriented 3 in no distress she reports improvement in her right upper quadrant abdominal pain, otherwise she denies any complaints there is no fever or chills no headache or dizziness no chest pain no shortness of breath no cough no nausea or vomiting no abdominal pain no diarrhea and no urinary symptoms, there is improvement in white blood count, AST ALT alkaline phosphatase and bilirubin since yesterday, patient underwent ERCP and sphincterectomy by Dr. López Objective - Vital Signs Vital signs: Vital Signs Temp 98.0 F 05/02/22 08:00 Pulse 87 07/23/22 09:11 Resp 18 05/02/22 08:00 BP 96/58 05/02/22 09:11 Pulse Ox 92 L 05/02/22 08:00 FiO2 Intake & Output 05/01/22 05/02/22 05/02/22 18:59 06:59 18:59 Intake Total 1200 Output Total 400 Balance 1200 -400 Weight 55.792 kg Intake: IV 200 Intake, IV Titration 600 Amount Piperacillin-Tazobactam 3 100 .375 gm In Sodium Chloride 0.9% 100 ml @ 25 mls/hr IVPB Q8H [facility] Rx#: [id number] Sodium Chloride 0.9% 1, 500 000 ml @ 75 mls/hr IV . [id number] [facility] Rx#:[id number] Oral 400 Output: Urine 400 Other: # Voids 3 - Exam In general patient is alert and oriented x 3 in no distress HEENT head normocephalic and atraumatic Neck is supple no JVD no goiter no lymphadenopathy no carotid bruit Chest examination is clear to auscultation no crackles no wheezing Cardiac exam reveals regular heart sounds S1 and S2 no gallops no murmurs Abdomen is soft with tenderness in the epigastric area and right upper quadrant area no hepatomegaly no splenomegaly there is normal bowel sounds no distention no guarding or rigidity Extremity exam reveals no edema no cyanosis or clubbing Neurological examination reveals no gross focal deficits - Labs CBC & Chem 7: 05/02/22 06:39 05/02/22 06:39 Labs: Abnormal Lab Results - Last 24 Hours (Table) 05/02/22 Range/Units 06:39 WBC 17.09 H (4.50-10.00) X 10*3/uL RBC 3.63 L (4.10-5.20) X 10*6/uL Hgb 10.8 L (12.0-15.0) g/dL Hct 34.3 L (37.2-46.3) % MCHC 31.5 L (32.0-37.0) g/dL Immature Gran # 0.45 H (0.00-0.04) X 10*3/uL Neutrophils # 13.85 H (1.80-7.70) X 10*3/uL Microbiology - Last 24 Hours (Table) 05/01/22 06:00 Urine Culture - Preliminary Urine,Voided 04/30/22 13:30 Blood Culture - Preliminary Blood No Growth after 24 hours 04/30/22 13:15 Blood Culture - Preliminary Blood No Growth after 24 hours Assessment and Plan Plan: Abdominal pain, related to cholecystitis possible choledocholithiasis patient underwent ERCP with biliary sphincterectomy, on 05/01/2022 Elevated liver enzymes including AST ALT alkaline phosphatase and elevated total bilirubin Dilated intrahepatic and extrahepatic biliary system on computed tomography scan Evidence of urinary tract infection Will start IV Rocephin and obtain urine culture Underlying history of hypertension Underlying history of hyperlipidemia Underlying history of anxiety disorder Underlying history of gastroesophageal reflux disease At this time patient is admitted to medical floor Home medications reviewed and reordered Surgical consultation and gastroenterology consultation requested Patient started on IV Rocephin For DVT prophylaxis subcu Lovenox For GI prophylaxis pantoprazole Prognosis is guarded will follow closely
--- NOTE | 2022-05-02 17:33 | P.PN ---
Subjective Progress Note Date: 05/02/22 Principal diagnosis: Leukocytosis and cholecystitis Patient is 87-year-old female presenting to the hospital with acute abdominal pain nausea vomiting patient has been diagnosed with acute cholecystitis concerning for choledocholithiasis patient is status post ERCP, CT abdominal pelvis and ultrasound was suspicious for cholecystitis but no gallstones. on today's evaluation that is 05/02/2022, the patient denies having any fever or chills, the patient abdominal pain has resolved patient denies having any nausea no vomiting no chest pain shortness of breath or cough and no diarrhea Objective - Vital Signs Vital signs: Vital Signs Temp 97.5 F L 05/02/22 14:00 Pulse 85 05/02/22 14:00 Resp 18 05/02/22 14:00 BP 106/66 05/02/22 14:00 Pulse Ox 95 05/02/22 14:00 FiO2 Intake & Output 05/01/22 05/02/22 05/02/22 18:59 06:59 18:59 Intake Total 1200 Output Total 400 Balance 1200 -400 Weight 55.792 kg Intake: IV 200 Intake, IV Titration 600 Amount Piperacillin-Tazobactam 3 100 .375 gm In Sodium Chloride 0.9% 100 ml @ 25 mls/hr IVPB Q8H [facility] Rx#: [id number] Sodium Chloride 0.9% 1, 500 000 ml @ 75 mls/hr IV . [id number] [facility] Rx#:[id number] Oral 400 Output: Urine 400 Other: # Voids 3 1 # Bowel Movements 1 - Exam GENERAL DESCRIPTION: An elderly female lying in bed in no distress RESPIRATORY SYSTEM: Unlabored breathing , decreased breath sounds at bases HEART: S1 S2 regular rate and rhythm , ABDOMEN: Soft , no tenderness EXTREMITIES: No edema feet - Labs CBC & Chem 7: 05/02/22 06:39 05/02/22 06:39 Labs: Abnormal Lab Results - Last 24 Hours (Table) 05/02/22 05/02/22 05/02/22 Range/Units 06:39 06:39 13:50 WBC 17.09 H (4.50-10.00) X 10*3/uL RBC 3.63 L (4.10-5.20) X 10*6/uL Hgb 10.8 L (12.0-15.0) g/dL Hct 34.3 L (37.2-46.3) % MCHC 31.5 L (32.0-37.0) g/dL Immature Gran # 0.45 H (0.00-0.04) X 10*3/uL Neutrophils # 13.85 H (1.80-7.70) X 10*3/uL Carbon Dioxide 16.5 L (20.0-27.5) mmol/L BUN/Creatinine Ratio 37.00 H (12.00-20.00) Ratio Glucose 39 L* (70-110) mg/dL POC Glucose (mg/dL) 66 L (70-110) mg/dL Calcium 8.6 L (8.7-10.3) mg/dL Total Bilirubin 1.30 H (0.30-1.20) mg/dL AST 73 H (13-35) U/L ALT 97 H (8-44) U/L Alkaline Phosphatase 187 H (41-126) U/L Total Protein 4.6 L (6.2-8.2) g/dL Albumin 2.7 L (3.8-4.9) g/dL Albumin/Globulin Ratio 1.42 L (1.60-3.17) g/dL Microbiology - Last 24 Hours (Table) 04/30/22 13:30 Blood Culture - Preliminary Blood No Growth after 48 hours 04/30/22 13:15 Blood Culture - Preliminary Blood No Growth after 48 hours 05/01/22 06:00 Urine Culture - Final Urine,Voided Assessment and Plan (1) Leukocytosis Current Visit: Yes Status: Acute Code(s): D72.829 - ELEVATED WHITE BLOOD CELL COUNT, UNSPECIFIED SNOMED Code(s): 225859492 (2) Cholecystitis Current Visit: Yes Status: Acute Code(s): K81.9 - CHOLECYSTITIS, UNSPECIFIED SNOMED Code(s): 44507054 Plan: 1patient presented to hospital with right upper quadrant pain in this patient has been diagnosed with choledocholithiasis and cholecystitis in this patient who is status post ERCP no mention of any stone patient did have a elevated white count and low-grade fever likely component of sepsis secondary to the enteric gram-negative francis. 2patient currently being treated with Zosyn 3.375 g every 8 hours while waiting for the culture to finalize and will monitor white count closely. Patient's family has multiple questions those were answered in Layman terms Time with Patient: Less than 30
[2022-05-02] MEDS: DEXTROSE 5%-0.45% NACL 1,000 ML IV SCH (18:11)
[2022-05-02] MEDS: CALCIUM CARBONATE 500 MG CHEWABLE PO SCH (20:23)
[2022-05-02] MEDS: ALPRAZolam 0.25 MG TAB PO PRN (20:24)
[2022-05-02] MEDS: PANTOPRAZOLE 40 MG TABLET PO SCH (20:24)
[2022-05-02] MEDS: ASPIRIN 81 MG PO SCH (20:24)
[2022-05-02] MEDS: ASCORBIC ACID 500 MG TAB PO SCH (20:24)
[2022-05-02] MEDS: NIFEdipine XL 30 MG TAB.ER.24 PO SCH (20:24)
[2022-05-02] MEDS: FERROUS SULFATE 325 MG TAB PO SCH (20:24)
[2022-05-02] MEDS: ATORVASTATIN 10 MG TAB PO SCH (20:24)
[2022-05-03] MEDS: PIPERACILLIN-TAZOBACTAM 3.375 GM in SODIUM CHLORIDE 0.9% 100 ML IVPB SCH ×3 (04:30→21:23)
--- NOTE | 2022-05-03 08:19 | P.PN ---
Subjective Progress Note Date: 05/03/22 Susan Do, is an 87-year-old female who presented to [facility] emergency room with a chief complaint of abdominal pain, patient is complaining of pain in the epigastric area that started 3 days prior to admission She was evaluated in the emergency room vital examination on presentation revealed a temperature of 98.2 pulse 71 respiration 18 blood pressure 120/66 pulse ox 98% on room air Laboratory data revealed a white blood count of 11.3 hemoglobin 13.7 platelet count 306 sodium 128 potassium 4.0 chloride 95 CO2 21 BUN 28 creatinine 0.62 total bilirubin 2.6 AST 388 ALT 227 alkaline phosphatase 308, urine analysis revealed evidence of urinary tract infection. Testing in the emergency room revealed computed tomography scan of the abdomen and pelvis with contrast done in the emergency room revealed evidence of moderate to large hiatal hernia, dilated gallbladder with circumferential thickening of the gallbladder wall and dilated Tatian of the intrahepatic and extrahepatic biliary system further evaluation with MRCP was recommended Patient was admitted to medical floor for further evaluation and treatment, gastroenterology consultation and surgical consultation was requested On 05/01/2022 patient was seen and examined on the medical floor she is alert and oriented 3 in no apparent distress she is complaining of right upper quadrant abdominal pain otherwise she denies any complaints there is no fever or chills no headache or dizziness no chest pain no shortness of breath no cough no nausea or vomiting no diarrhea no blood in the stools no burning with urination no frequency or urgency and no hematuria, white blood count is more elevated today to 23.86, Rocephin was discontinued and patient was started on IV Zosyn, patient is scheduled for MRCP today, awaiting further recommendation from gastroenterology and surgery On 05/02/2022 patient was seen and examined on the medical floor, she is alert and oriented 3 in no distress she reports improvement in her right upper quadrant abdominal pain, otherwise she denies any complaints there is no fever or chills no headache or dizziness no chest pain no shortness of breath no cough no nausea or vomiting no abdominal pain no diarrhea and no urinary symptoms, there is improvement in white blood count, AST ALT alkaline phosphatase and bilirubin since yesterday, patient underwent ERCP and sphincterectomy by Dr. Vicente On 05/03/2022 patient was seen and examined on the medical floor she is alert and oriented 3 in no apparent distress she is feeling better, she denies any abdominal pain today, there is no fever or chills no headache or dizziness no chest pain no shortness of breath no cough no nausea or vomiting no diarrhea no blood in the stools no burning with urination no frequency or urgency and no hematuria, at this time will advance diet, labs are still pending will follow closely Objective - Vital Signs Vital signs: Vital Signs Temp 98.4 F 05/03/22 00:54 Pulse 97 05/03/22 00:54 Resp 16 05/03/22 00:54 BP 130/76 05/03/22 00:54 Pulse Ox 94 L 05/03/22 00:54 FiO2 Intake & Output 05/02/22 05/03/22 05/03/22 18:59 06:59 18:59 Intake Total 1979 880 Balance 1979 880 Intake: IV 900 Sodium Chloride 0.9% 1, 900 000 ml @ 75 mls/hr IV . [id number] [facility] Rx#:[id number] Intake, IV Titration 700 Amount Dextrose 5%-0.45% NaCl 1, 600 000 ml @ 50 mls/hr IV . Q20H [facility] Rx#:[id number] IV Fluid Continuation 500 100 ml @ 0 mls/hr IV .[facility]K- [facility] Rx#:[id number] Oral 1080 180 Other: Voiding Method External Catheter # Voids 2 2 # Bowel Movements 1 - Exam In general patient is alert and oriented x 3 in no distress HEENT head normocephalic and atraumatic Neck is supple no JVD no goiter no lymphadenopathy no carotid bruit Chest examination is clear to auscultation no crackles no wheezing Cardiac exam reveals regular heart sounds S1 and S2 no gallops no murmurs Abdomen is soft with tenderness in the epigastric area and right upper quadrant area no hepatomegaly no splenomegaly there is normal bowel sounds no distention no guarding or rigidity Extremity exam reveals no edema no cyanosis or clubbing Neurological examination reveals no gross focal deficits - Labs CBC & Chem 7: 05/02/22 06:39 05/02/22 06:39 Labs: Abnormal Lab Results - Last 24 Hours (Table) 05/02/22 05/02/22 05/02/22 Range/Units 06:39 06:39 13:50 WBC 17.09 H (4.50-10.00) X 10*3/uL RBC 3.63 L (4.10-5.20) X 10*6/uL Hgb 10.8 L (12.0-15.0) g/dL Hct 34.3 L (37.2-46.3) % MCHC 31.5 L (32.0-37.0) g/dL Immature Gran # 0.45 H (0.00-0.04) X 10*3/uL Neutrophils # 13.85 H (1.80-7.70) X 10*3/uL Carbon Dioxide 16.5 L (20.0-27.5) mmol/L BUN/Creatinine Ratio 37.00 H (12.00-20.00) Ratio Glucose 39 L* (70-110) mg/dL POC Glucose (mg/dL) 66 L (70-110) mg/dL Calcium 8.6 L (8.7-10.3) mg/dL Total Bilirubin 1.30 H (0.30-1.20) mg/dL AST 73 H (13-35) U/L ALT 97 H (8-44) U/L Alkaline Phosphatase 187 H (41-126) U/L Total Protein 4.6 L (6.2-8.2) g/dL Albumin 2.7 L (3.8-4.9) g/dL Albumin/Globulin Ratio 1.42 L (1.60-3.17) g/dL Microbiology - Last 24 Hours (Table) 04/30/22 13:30 Blood Culture - Preliminary Blood No Growth after 48 hours 04/30/22 13:15 Blood Culture - Preliminary Blood No Growth after 48 hours 05/01/22 06:00 Urine Culture - Final Urine,Voided Assessment and Plan Plan: Abdominal pain, related to cholecystitis possible choledocholithiasis patient underwent ERCP with biliary sphincterectomy, on 05/01/2022 Elevated liver enzymes including AST ALT alkaline phosphatase and elevated total bilirubin Dilated intrahepatic and extrahepatic biliary system on computed tomography scan Evidence of urinary tract infection Will start IV Rocephin and obtain urine cul ture Underlying history of hypertension Underlying history of hyperlipidemia Underlying history of anxiety disorder Underlying history of gastroesophageal reflux disease At this time patient is admitted to medical floor Home medications reviewed and reordered Surgical consultation and gastroenterology consultation requested Patient started on IV Rocephin For DVT prophylaxis subcu Lovenox For GI prophylaxis pantoprazole Prognosis is guarded will follow closely
[2022-05-03] MEDS: ENOXAPARIN 40 MG/0.4 ML SYRINGE SQ SCH (08:59)
[2022-05-03 09:54] LABS: African American GFR (CKD) 99.5 (60.0-200.0); Albumin 2.7 g/dL (3.8-4.9); Albumin/Globulin Ratio 1.35 (1.60-3.17); Anion Gap 11.6 mmol/L (10.00-18.00); BUN/Creat Ratio 18.2 Ratio (12.00-20.00); Blood Urea Nitrogen 9.1 mg/dL (9.0-27.0); Calcium 8.2 mg/dL (8.7-10.3); Carbon Dioxide 22.4 mmol/L (20.0-27.5); Non-African American GFR(CKD) 85.8 (60.0-200.0); Potassium 3.3 mmol/L (3.5-5.5); Total Bilirubin 0.9 mg/dL (0.30-1.20); Total Protein 4.7 g/dL (6.2-8.2)
[2022-05-03 10:23] LABS: HCT 34.5 % (37.2-46.3); HGB 11.4 g/dL (12.0-15.0); MCH 29.8 pg (27.0-32.0); MCV 90.3 fL (80.0-97.0); Mean Platelet Volume 10.5 fL (9.5-12.2); NRBC Per 100 WBC 0 /100 WBCS (0.0-0.0); Platelet Count 250 X 10*3/uL (140-440); RBC 3.82 X 10*6/uL (4.10-5.20); RDW 13.2 % (11.5-14.5)
[2022-05-03 10:24] LABS: Basophils # (M) 0.11 X 10*3/uL (0.00-0.10); Eosinophils # (M) 0.11 X 10*3/uL (0.04-0.35); Lymphocytes # (M) 1.76 X 10*3/uL (0.90-5.00); Metamyelocytes % 2 % (0-0); Monocytes # (M) 0.77 X 10*3/uL (0.20-1.00); Myelocytes % 1 % (0-0); Neutrophils # (M) 7.92 X 10*3/uL (2.00-8.90); Neutrophils % (M) 72 %
--- NOTE | 2022-05-03 13:07 | P.PN ---
Progress Note - Text Progress Note Date: 05/03/22 Patient feels better. Her liver function tests are returning to normal. On exam vessels are still. Abdomen soft. It. Patient will R laparoscopically cholecystectomy when stable due to choledocholithiasis
--- NOTE | 2022-05-03 17:38 | P.PN ---
Subjective Progress Note Date: 05/03/22 Principal diagnosis: Leukocytosis and cholecystitis Patient is 87-year-old female presenting to the hospital with acute abdominal pain nausea vomiting patient has been diagnosed with acute cholecystitis concerning for choledocholithiasis patient is status post ERCP, CT abdominal pelvis and ultrasound was suspicious for cholecystitis but no gallstones. on today's evaluation that is 05/03/2022, the patient remains to be afebrile, the patient denies abdominal pain , patient denies having any nausea no vomiting no chest pain shortness of breath or cough and no diarrhea Objective - Vital Signs Vital signs: Vital Signs Temp 98.4 F 05/03/22 14:00 Pulse 86 05/03/22 14:00 Resp 16 05/03/22 14:00 BP 124/67 05/03/22 14:00 Pulse Ox 96 05/03/22 14:00 FiO2 Intake & Output 05/02/22 05/03/22 05/03/22 18:59 06:59 18:59 Intake Total 1979 880 Balance 1979 880 Intake: IV 900 Sodium Chloride 0.9% 1, 900 000 ml @ 75 mls/hr IV . [id number] [facility] Rx#:[id number] Intake, IV Titration 700 Amount Dextrose 5%-0.45% NaCl 1, 600 000 ml @ 50 mls/hr IV . Q20H [facility] Rx#:[id number] IV Fluid Continuation 500 100 ml @ 0 mls/hr IV .STK- [facility] Rx#:[id number] Oral 1080 180 Other: Voiding Method External Catheter # Voids 2 2 # Bowel Movements 1 - Exam GENERAL DESCRIPTION: An elderly female lying in bed in no distress RESPIRATORY SYSTEM: Unlabored breathing , decreased breath sounds at bases HEART: S1 S2 regular rate and rhythm , ABDOMEN: Soft , no tenderness EXTREMITIES: No edema feet - Labs CBC & Chem 7: 05/03/22 06:23 05/03/22 06:23 Labs: Abnormal Lab Results - Last 24 Hours (Table) 05/03/22 05/03/22 Range/Units 06:23 06:23 WBC 11.00 H (4.50-10.00) X 10*3/uL RBC 3.82 L (4.10-5.20) X 10*6/uL Hgb 11.4 L (12.0-15.0) g/dL Hct 34.5 L (37.2-46.3) % Metamyelocytes % 2 H (0-0) % Myelocytes % 1 H (0-0) % Basophils # (Manual) 0.11 H (0.00-0.10) X 10*3/uL Potassium 3.3 L (3.5-5.5) mmol/L Creatinine 0.5 L (0.6-1.5) mg/dL Calcium 8.2 L (8.7-10.3) mg/dL AST 43 H (13-35) U/L ALT 73 H (8-44) U/L Alkaline Phosphatase 184 H (41-126) U/L Total Protein 4.7 L (6.2-8.2) g/dL Albumin 2.7 L (3.8-4.9) g/dL Albumin/Globulin Ratio 1.35 L (1.60-3.17) g/dL Microbiology - Last 24 Hours (Table) 04/30/22 13:30 Blood Culture - Preliminary Blood No Growth after 72 hours 04/30/22 13:15 Blood Culture - Preliminary Blood No Growth after 72 hours 05/01/22 06:00 Urine Culture - Final Urine,Voided Assessment and Plan (1) Leukocytosis Current Visit: Yes Status: Acute Code(s): D72.829 - ELEVATED WHITE BLOOD CELL COUNT, UNSPECIFIED SNOMED Code(s): 982456991 (2) Cholecystitis Current Visit: Yes Status: Acute Code(s): K81.9 - CHOLECYSTITIS, UNSPECIFIED SNOMED Code(s): 53162961 Plan: 1patient presented to hospital with right upper quadrant pain in this patient has been diagnosed with choledocholithiasis and cholecystitis in this patient who is status post ERCP no mention of any stone patient did have a elevated whi te count and low-grade fever likely component of sepsis secondary to the enteric gram-negative francis. 2patient has shown clinical improvement and the white count down to 11,000, patient to continue with Zosyn 3.375 g every 8 hours with the plan to finish therapy with oral antibiotics Time with Patient: Less than 30
[2022-05-03] MEDS: DEXTROSE 5%-0.45% NACL 1,000 ML IV SCH (19:33)
[2022-05-03] MEDS: ASPIRIN 81 MG PO SCH (21:32)
[2022-05-03] MEDS: FERROUS SULFATE 325 MG TAB PO SCH (21:32)
[2022-05-03] MEDS: PANTOPRAZOLE 40 MG TABLET PO SCH (21:32)
[2022-05-03] MEDS: ATORVASTATIN 10 MG TAB PO SCH (21:32)
[2022-05-03] MEDS: ALPRAZolam 0.25 MG TAB PO SCH (21:32)
[2022-05-03] MEDS: CALCIUM CARBONATE 500 MG CHEWABLE PO SCH (21:32)
[2022-05-03] MEDS: ASCORBIC ACID 500 MG TAB PO SCH (21:32)
[2022-05-03] MEDS: NIFEdipine XL 30 MG TAB.ER.24 PO SCH (21:33)
[2022-05-04] MEDS: PIPERACILLIN-TAZOBACTAM 3.375 GM in SODIUM CHLORIDE 0.9% 100 ML IVPB SCH ×3 (03:14→20:06)
[2022-05-04] MEDS: DEXTROSE 5%-0.45% NACL 1,000 ML IV SCH (08:32)
[2022-05-04] MEDS: ENOXAPARIN 40 MG/0.4 ML SYRINGE SQ SCH (08:32)
--- NOTE | 2022-05-04 11:26 | P.PN ---
Subjective Principal diagnosis: Acute cholecystitis Patient did well over the weekend. Pain remains minimal. No nausea or vomiting. Liver enzymes continue to trend downward. ERCP from Wednesday showed no evidence of malignancy. No obvious stone was seen however still suspected as the etiology for her pain and elevated liver enzymes. She is afebrile. Blood cultures have remained negative. Objective - Vital Signs Vital signs: Vital Signs Temp 98.1 F 05/04/22 08:14 Pulse 82 05/04/22 08:14 Resp 17 05/04/22 08:14 BP 123/72 05/04/22 08:14 Pulse Ox 94 L 05/04/22 08:14 FiO2 Intake & Output 05/03/22 05/04/22 05/04/22 18:59 06:59 18:59 Other: Voiding Method Toilet # Voids 3 4 - Exam Abdomen: Soft, nondistended, minimal right upper quadrant tenderness - Labs CBC & Chem 7: 05/03/22 06:23 05/03/22 06:23 Labs: Microbiology - Last 24 Hours (Table) 04/30/22 13:30 Blood Culture - Preliminary Blood No Growth after 72 hours 04/30/22 13:15 Blood Culture - Preliminary Blood No Growth after 72 hours Assessment and Plan (1) Acute cholecystitis due to biliary calculus Narrative/Plan: A 7-year-old female with acute cholecystitis and associated choledocholithiasis. Patient doing well after ERCP on Wednesday. Discussed options of cystectomy with the patient and also her daughter by phone. They would like to proceed with surgery during this hospitalization if able to do so. We'll schedule for laparoscopic, possible open cholecystectomy tomorrow. Risks of bleeding, infection, bile leak, bile duct injury, retained common bile duct stone, trocar injury, conversion to an open procedure, hernia, anesthesia related complications were reviewed. The patient understands and wishes to proceed. Current Visit: Yes Status: Acute Code(s): K80.00 - CALCULUS OF GALLBLADDER W ACUTE CHOLECYST W/O OBSTRUCTION SNOMED Code(s): 72871773535888
--- NOTE | 2022-05-04 15:08 | CDI ---
Documentation Clarification Form Date: 05/04/2022 02:40:15 PM From: Tali Clark RN CCDS Admit Date: 04/30/2022 01:23:00 PM Patient Name: Susan Do Visit Number: [id number] Discharge Date: ATTENTION: The Clinical Documentation Specialists (CDI) and [facility] Coding Staff appreciate your assistance in clarifying documentation. Please respond to the clarification below the line at the bottom and electronically sign. The CDI & [facility] Coding staff will review the response and follow-up if needed. Please note: Queries are made part of the Legal Health Record. If you have any questions, please contact the author of this message via ITS. Dr. Shanika Avalos Sepsis is documented ID Consult , 05/01, but is not noted in subsequent documentation. Clarification is requested. History/Risk Factors: 87-year-old female presents to the ED with abdominal pain for three days prior to arrival. Medical History: HLD, HTN and abdominal hernia Clinical Indicators: VSS 04/30 B/P 120/66; HR 71; Temp 98.2 F Oral; RR 18; SpO2 98% ra 04/30 B/P 100/64; HR 62; Temp 99.8 F Oral; RR 16; SpO2 98% room air LABS: 04/30 Wbc 11.3; Neutrophils 9.8 ID consult, 05/01: Patient presented to hospital with right upper quadrant pain in this patient has been diagnosed with choledocholithiasis and cholecystitis in this patient who status is post ERCP no mention of any stone patient did have a elevated white count and low grade fever likely component of sepsis secondary to the enteric gram negative francis. Treatment: 04/30 Rocephin 1,000mg IVP; 05/01 Ceftriaxone 1gm IVPB daily d/c 05/01; 05/01 Zosyn [id number] IV fluid bolus: 04/30 0.9NS 1L bolus Please clarify if the Sepsis is: [ xxxx ] Sepsis confirmed, remains under treatment [ ] Sepsis confirmed, resolved [ ] Sepsis ruled out [ ] Other condition, please specify [ ] Unable to determine (Template Last Revised: December 2020) MTDD
--- NOTE | 2022-05-04 19:08 | P.PN ---
Subjective Progress Note Date: 05/04/22 Susan Do, is an 87-year-old female who presented to [facility] emergency room with a chief complaint of abdominal pain, patient is complaining of pain in the epigastric area that started 3 days prior to admission She was evaluated in the emergency room vital examination on presentation revealed a temperature of 98.2 pulse 71 respiration 18 blood pressure 120/66 pulse ox 98% on room air Laboratory data revealed a white blood count of 11.3 hemoglobin 13.7 platelet count 306 sodium 128 potassium 4.0 chloride 95 CO2 21 BUN 28 creatinine 0.62 total bilirubin 2.6 AST 388 ALT 227 alkaline phosphatase 308, urine analysis revealed evidence of urinary tract infection. Testing in the emergency room revealed computed tomography scan of the abdomen and pelvis with contrast done in the emergency room revealed evidence of moderate to large hiatal hernia, dilated gallbladder with circumferential thickening of the gallbladder wall and dilated Tatian of the intrahepatic and extrahepatic biliary system further evaluation with MRCP was recommended Patient was admitted to medical floor for further evaluation and treatment, gastroenterology consultation and surgical consultation was requested On 05/01/2022 patient was seen and examined on the medical floor she is alert and oriented 3 in no apparent distress she is complaining of right upper quadrant abdominal pain otherwise she denies any complaints there is no fever or chills no headache or dizziness no chest pain no shortness of breath no cough no nausea or vomiting no diarrhea no blood in the stools no burning with urination no frequency or urgency and no hematuria, white blood count is more elevated today to 23.86, Rocephin was discontinued and patient was started on IV Zosyn, patient is scheduled for MRCP today, awaiting further recommendation from gastroenterology and surgery On 05/02/2022 patient was seen and examined on the medical floor, she is alert and oriented 3 in no distress she reports improvement in her right upper quadrant abdominal pain, otherwise she denies any complaints there is no fever or chills no headache or dizziness no chest pain no shortness of breath no cough no nausea or vomiting no abdominal pain no diarrhea and no urinary symptoms, there is improvement in white blood count, AST ALT alkaline phosphatase and bilirubin since yesterday, patient underwent ERCP and sphincterectomy by Dr. Vicente On 05/03/2022 patient was seen and examined on the medical floor she is alert and oriented 3 in no apparent distress she is feeling better, she denies any abdominal pain today, there is no fever or chills no headache or dizziness no chest pain no shortness of breath no cough no nausea or vomiting no diarrhea no blood in the stools no burning with urination no frequency or urgency and no hematuria, at this time will advance diet, labs are still pending will follow closely On 05/04/2022 patient was seen and examined on the medical floor she is alert and oriented in no distress she is feeling better, she denies any abdominal pain today, there is no fever or chills no headache or dizziness no chest pain no shortness of breath no cough no nausea or vomiting no diarrhea no blood in the stools no burning with urination no frequency or urgency and no hematuria, plan at this time per surgery is to proceed with cholecystectomy tomorrow. Objective - Vital Signs Vital signs: Vital Signs Temp 98.6 F 05/04/22 14:00 Pulse 84 05/04/22 14:00 Resp 18 05/04/22 14:00 BP 117/72 05/04/22 14:00 Pulse Ox 95 05/04/22 14:00 FiO2 Intake & Output 05/03/22 05/04/22 05/04/22 18:59 06:59 18:59 Weight 55.792 kg Other: Voiding Method Toilet # Voids 3 4 - Exam In general patient is alert and oriented x 3 in no distress HEENT head normocephalic and atraumatic Neck is supple no JVD no goiter no lymphadenopathy no carotid bruit Chest examination is clear to auscultation no crackles no wheezing Cardiac exam reveals regular heart sounds S1 and S2 no gallops no murmurs Abdomen is soft with tenderness in the epigastric area and right upper quadrant area no hepatomegaly no splenomegaly there is normal bowel sounds no distention no guarding or rigidity Extremity exam reveals no edema no cyanosis or clubbing Neurological examination reveals no gross focal deficits - Labs CBC & Chem 7: 05/03/22 06:23 05/03/22 06:23 Labs: Microbiology - Last 24 Hours (Table) 04/30/22 13:30 Blood Culture - Preliminary Blood No Growth after 96 hours 04/30/22 13:15 Blood Culture - Preliminary Blood No Growth after 96 hours Assessment and Plan Plan: Abdominal pain, related to cholecystitis possible choledocholithiasis patient underwent ERCP with biliary sphincterectomy, on 05/01/2022 Elevated liver enzymes including AST ALT alkaline phosphatase and elevated total bilirubin Dilated intrahepatic and extrahepatic biliary system on computed tomography scan Evidence of urinary tract infection Will start IV Rocephin and obtain urine culture Underlying history of hypertension Underlying history of hyperlipidemia Underlying history of anxiety disorder Underlying history of gastroesophageal reflux disease At this time patient is admitted to medical floor Home medications reviewed and reordered Surgical consultation and gastroenterology consultation requested Patient started on IV Rocephin For DVT prophylaxis subcu Lovenox For GI prophylaxis pantoprazole Prognosis is guarded will follow closely
[2022-05-04] MEDS ORDERED: LIDOCAINE 1% (10MG/ML) FOR IV START INTRADERMA PRN (19:31)
[2022-05-04] MEDS ORDERED: DEXAMETHASONE SOD PHOSPHATE 4 MG/ML 1 ML VIAL IV ONE (19:31)
[2022-05-04] MEDS: PANTOPRAZOLE 40 MG TABLET PO SCH (20:06)
[2022-05-04] MEDS: FERROUS SULFATE 325 MG TAB PO SCH (20:06)
[2022-05-04] MEDS: CALCIUM CARBONATE 500 MG CHEWABLE PO SCH (20:06)
[2022-05-04] MEDS: ASCORBIC ACID 500 MG TAB PO SCH (20:06)
[2022-05-04] MEDS: ATORVASTATIN 10 MG TAB PO SCH (20:07)
[2022-05-04] MEDS: ALPRAZolam 0.25 MG TAB PO SCH (20:07)
[2022-05-04] MEDS: ASPIRIN 81 MG PO SCH (20:07)
[2022-05-04] MEDS: NIFEdipine XL 30 MG TAB.ER.24 PO SCH (20:07)
[2022-05-05] MEDS: PIPERACILLIN-TAZOBACTAM 3.375 GM in SODIUM CHLORIDE 0.9% 100 ML IVPB SCH ×3 (04:16→19:52)
[2022-05-05] MEDS: LACTATED RINGERS 1,000 ML IV SCH ×2 (06:57→20:56)
[2022-05-05] MEDS: DEXTROSE 5%-0.45% NACL 1,000 ML IV SCH ×2 (06:57→19:56)
[2022-05-05 06:58] LABS: HCT 39.6 % (34.0-46.0); HGB 12.9 gm/dL (11.4-16.0); MCHC 32.6 g/dL (31.0-37.0); MCV 95.2 fL (80.0-100.0); Mean Platelet Volume 7.8; Platelet Count 322 k/uL (150-450); RBC 4.16 m/uL (3.80-5.40); RDW 13.3 % (11.5-15.5); WBC 5.3 k/uL (3.8-10.6)
[2022-05-05] MEDS: ENOXAPARIN 40 MG/0.4 ML SYRINGE SQ SCH (06:58)
[2022-05-05 07:01] LABS: ALT 57 U/L (4-34); AST 46 U/L (14-36); African American GFR (CKD) >90 (>60 ml/min/1.73 sqM); Albumin 2.9 g/dL (3.5-5.0); Albumin/Globulin Ratio 1.1; Alkaline Phosphatase 169 U/L (38-126); Anion Gap 8 mmol/L; Blood Urea Nitrogen 3 mg/dL (7-17); Calcium 8.2 mg/dL (8.4-10.2); Carbon Dioxide 25 mmol/L (22-30); Chloride 104 mmol/L (98-107); Globulin 2.6 g/dL; Glucose 116 mg/dL (74-99); Non-African American GFR(CKD) >90 (>60 ml/min/1.73 sqM); Potassium 3.2 mmol/L (3.5-5.1); Sodium 137 mmol/L (137-145); Total Protein 5.5 g/dL (6.3-8.2)
[2022-05-05 10:52] LABS: Band Neutrophils % 3 %; Basophils # (M) 0.05 k/uL (0-0.2); Metamyelocytes # (M) 0.32 k/uL (0); Metamyelocytes % 6 %; Monocytes # (M) 0.27 k/uL (0-1.0); Myelocytes # (M) 0.16 k/uL (0); Myelocytes % 3 %; Neutrophils % (M) 69 %; Nucleated Red Blood Cells 0 /100 WBC (0-0); Total Cells Counted 200
[2022-05-05 10:53] LABS: RBC Morphology Normal
[2022-05-05] MEDS ORDERED: IV FLUID CONTINUATION 900 ML IV ONE (12:24)
[2022-05-05] MEDS ORDERED: ONDANSETRON 4 MG/2 ML VIAL IVP ONE (12:31)
[2022-05-05] MEDS ORDERED: DEXAMETHASONE SOD PHOSPHATE 4 MG/ML 1 ML VIAL IVP ONE (12:31)
[2022-05-05] MEDS ORDERED: HEPARIN SODIUM,PORCINE/PF 5,000 UNIT/0.5 ML SYRINGE SQ ONE (12:36)
[2022-05-05] MEDS ORDERED: HEPARIN SODIUM,PORCINE 5,000 UNIT/ML 1 ML VIAL SQ ONE (12:38)
[2022-05-05] MEDS ORDERED: NEOSTIGMINE 1 MG/ML 10 ML VIAL ONE (13:04)
[2022-05-05] MEDS ORDERED: GLYCOPYRROLATE 0.2 MG/ML 2 ML VIAL ONE (13:04)
[2022-05-05] MEDS ORDERED: LIDOCAINE 2% INJ 20 MG/ML (2 ML VIAL) ONE (13:04)
[2022-05-05] MEDS ORDERED: fentaNYL (PF) 50 MCG/ML 2 ML AMP ONE (13:04)
[2022-05-05] MEDS ORDERED: SUCCINYLCHOLINE CHLORIDE 200 MG/10 ML VIAL IV ONE (13:04)
[2022-05-05] MEDS ORDERED: ROCURONIUM 10 MG/ML (5 ML VIAL) IV ONE (13:04)
[2022-05-05] MEDS ORDERED: PROPOFOL 10 MG/ML 20 ML VIAL IV ONE (13:04)
[2022-05-05] MEDS ORDERED: MIDAZOLAM 2 MG/2 ML VIAL ONE (13:04)
[2022-05-05] MEDS ORDERED: BUPIVACAIN-EPI 0.25%-1:200,000 30 ML VIAL SQ ONE (13:37)
[2022-05-05] MEDS ORDERED: IBUPROFEN 600 MG TAB PO PRN (14:25)
[2022-05-05] MEDS ORDERED: HYDROcodone/APAP 5-325MG 1 EACH TAB PO PRN (14:25)
--- NOTE | 2022-05-05 14:27 | P.OP ---
Date of Procedure: 05/05/22 Procedure(s) Performed: PREOPERATIVE DIAGNOSIS: Acute cholecystitis with recent choledocholithiasis POSTOPERATIVE DIAGNOSIS: Same PROCEDURE: Laparoscopic cholecystectomy SURGEON: Fani EBL: Minimal see anesthesia record ANESTHESIA: Gen. COMPLICATIONS: None OPERATIVE PROCEDURE: The patient was brought and placed on the operating room table in the supine position. The patient was placed under general anesthesia at that time. The abdomen was prepped and draped in the usual sterile fashion. A small vertical infraumbilical incision was made. The fascia was grasped with the Rufina forceps. The fascia was retracted anteriorly. The Veress needle was advanced into the peritoneal cavity. The saline drop test was normal. Insufflation took place up to 15 mmHg. A 5 mm optical trocar was advanced and the peritoneal cavity. 2 additional 5 mm trochars were placed in the right upper quadrant under direct visualization. A 12 mm trocar was advanced into the epigastric incision site. The gallbladder was acutely inflamed. The patient's omentum and colon were adherent to the gallbladder. Blunt dissection was able to move the structures away from the body of the gallbladder. At the infundibulum the patient's duodenum was loosely adherent. Again blunt dissection allowed for full visualization of the gallbladder at this time. The gallbladder was retracted superiorly and laterally. The peritoneum overlying the infundibulum was bluntly dissected. The patient's cystic duct was visualized. The junction between the cystic duct common and hepatic duct was identified. The critical view of safety was achieved after blunt dissection. The cystic duct was then divided after placement of 3 12 mm clips on the patient's side and one on the specimen side. The cystic artery was identified and clipped as well. A small vessel was seen along the gallbladder fossa and clipped as well. The gallbladder was then removed from the liver bed using electrocautery. The gallbladder was then removed from the epigastric trocar site with an Endo Catch bag. The gallbladder fossa was irrigated with saline. There was no evidence of any bleeding or biliary drainage seen. The fascia at the 12 millimeter site was closed using a [id number] 0 Vicryl stitch. The trochars were then removed. The skin at all 4 sites was closed using a 4-0 Monocryl stitch. Skin glue was utilized on the incision sites. At the end of this procedure the sponge and needle counts were correct. DISPOSITION: Stable to the recovery room
[2022-05-05] MEDS: ACETAMINOPHEN TAB 325 MG TAB PO PRN ×2 (15:42→19:59)
[2022-05-05] MEDS ORDERED: Potassium Replacement Protocol 1 EACH MISC MISCELLANE PRN (15:54)
[2022-05-05] MEDS: POTASSIUM CHLORIDE ER 20 MEQ TAB.ER PO SCH ×2 (16:31→17:07)
--- NOTE | 2022-05-05 17:13 | P.PN ---
Subjective Progress Note Date: 05/05/22 Susan Do, is an 87-year-old female who presented to [facility] emergency room with a chief complaint of abdominal pain, patient is complaining of pain in the epigastric area that started 3 days prior to admission She was evaluated in the emergency room vital examination on presentation revealed a temperature of 98.2 pulse 71 respiration 18 blood pressure 120/66 pulse ox 98% on room air Laboratory data revealed a white blood count of 11.3 hemoglobin 13.7 platelet count 306 sodium 128 potassium 4.0 chloride 95 CO2 21 BUN 28 creatinine 0.62 total bilirubin 2.6 AST 388 ALT 227 alkaline phosphatase 308, urine analysis revealed evidence of urinary tract infection. Testing in the emergency room revealed computed tomography scan of the abdomen and pelvis with contrast done in the emergency room revealed evidence of moderate to large hiatal hernia, dilated gallbladder with circumferential thickening of the gallbladder wall and dilated Tatian of the intrahepatic and extrahepatic biliary system further evaluation with MRCP was recommended Patient was admitted to medical floor for further evaluation and treatment, gastroenterology consultation and surgical consultation was requested On 05/01/2022 patient was seen and examined on the medical floor she is alert and oriented 3 in no apparent distress she is complaining of right upper quadrant abdominal pain otherwise she denies any complaints there is no fever or chills no headache or dizziness no chest pain no shortness of breath no cough no nausea or vomiting no diarrhea no blood in the stools no burning with urination no frequency or urgency and no hematuria, white blood count is more elevated today to 23.86, Rocephin was discontinued and patient was started on IV Zosyn, patient is scheduled for MRCP today, awaiting further recommendation from gastroenterology and surgery On 05/02/2022 patient was seen and examined on the medical floor, she is alert and oriented 3 in no distress she reports improvement in her right upper quadrant abdominal pain, otherwise she denies any complaints there is no fever or chills no headache or dizziness no chest pain no shortness of breath no cough no nausea or vomiting no abdominal pain no diarrhea and no urinary symptoms, there is improvement in white blood count, AST ALT alkaline phosphatase and bilirubin since yesterday, patient underwent ERCP and sphincterectomy by Dr. Vicente On 05/03/2022 patient was seen and examined on the medical floor she is alert and oriented 3 in no apparent distress she is feeling better, she denies any abdominal pain today, there is no fever or chills no headache or dizziness no chest pain no shortness of breath no cough no nausea or vomiting no diarrhea no blood in the stools no burning with urination no frequency or urgency and no hematuria, at this time will advance diet, labs are still pending will follow closely On 05/04/2022 patient was seen and examined on the medical floor she is alert and oriented in no distress she is feeling better, she denies any abdominal pain today, there is no fever or chills no headache or dizziness no chest pain no shortness of breath no cough no nausea or vomiting no diarrhea no blood in the stools no burning with urination no frequency or urgency and no hematuria, plan at this time per surgery is to proceed with cholecystectomy tomorrow. On 05/04/2022 patient was seen and examined on the medical floor she is alert and oriented in no distress she is feeling better, she denies any abdominal pain today, there is no fever or chills no headache or dizziness no chest pain no shortness of breath no cough no nausea or vomiting no diarrhea no blood in the stools no burning with urination no frequency or urgency and no hematuria, plan at this time per surgery is to proceed with cholecystectomy today Objective - Vital Signs Vital signs: Vital Signs Temp 98 F 05/05/22 12:24 Pulse 95 05/05/22 12:24 Resp 16 05/05/22 12:24 BP 156/73 05/05/22 12:24 Pulse Ox 99 05/05/22 12:24 FiO2 Intake & Output 05/04/22 05/05/22 05/05/22 18:59 06:59 18:59 Intake Total 0 Balance 0 Weight 55.792 kg Intake: IV 0 Other: # Voids 4 1 # Bowel Movements 2 - Exam In general patient is alert and oriented x 3 in no distress HEENT head normocephalic and atraumatic Neck is supple no JVD no goiter no lymphadenopathy no carotid bruit Chest examination is clear to auscultation no crackles no wheezing Cardiac exam reveals regular heart sounds S1 and S2 no gallops no murmurs Abdomen is soft with tenderness in the epigastric area and right upper quadrant area no hepatomegaly no splenomegaly there is normal bowel sounds no distention no guarding or rigidity Extremity exam reveals no edema no cyanosis or clubbing Neurological examination reveals no gross focal deficits - Labs CBC & Chem 7: 05/05/22 06:28 05/05/22 06:28 Labs: Abnormal Lab Results - Last 24 Hours (Table) 05/02/22 05/05/22 05/05/22 Range/Units 06:39 06:28 06:28 Lymphocytes # (Manual) 0.80 L (1.0-4.8) k/uL Metamyelocytes # (Man) 0.32 H (0) k/uL Myelocytes # (Manual) 0.16 H (0) k/uL Potassium 3.2 L (3.5-5.1) mmol/L BUN 3 L (7-17) mg/dL Creatinine 0.40 L (0.52-1.04) mg/dL Glucose 39 L* 116 H (70-110) mg/dL Calcium 8.2 L (8.4-10.2) mg/dL AST 46 H (14-36) U/L ALT 57 H (4-34) U/L Alkaline Phosphatase 169 H (38-126) U/L Total Protein 5.5 L (6.3-8.2) g/dL Albumin 2.9 L (3.5-5.0) g/dL Microbiology - Last 24 Hours (Table) 04/30/22 13:30 Blood Culture - Preliminary Blood No Growth after 96 hours 04/30/22 13:15 Blood Culture - Preliminary Blood No Growth after 96 hours Assessment and Plan Plan: Abdominal pain, related to cholecystitis possible choledocholithiasis patient underwent ERCP with biliary sphincterectomy, on 05/01/2022 Elevated liver enzymes including AST ALT alkaline phosphatase and elevated total bilirubin Dilated intrahepatic and extrahepatic biliary system on computed tomography scan Evidence of urinary tract infection Will start IV Rocephin and obtain urine culture Underlying history of hypertension Underlying history of hyperlipidemia Underlying history of anxiety disorder Underlying history of gastroesophageal reflux disease At this time patient is admitted to medical floor Home medications reviewed and reordered Surgical consultation and gastroenterology consultation requested Patient started on IV Rocephin For DVT prophylaxis subcu Lovenox For GI prophylaxis pantoprazole Prognosis is guarded will follow closely
[2022-05-05] MEDS: ALPRAZolam 0.25 MG TAB PO SCH (20:00)
[2022-05-05] MEDS: PANTOPRAZOLE 40 MG TABLET PO SCH (20:00)
[2022-05-05] MEDS: NIFEdipine XL 30 MG TAB.ER.24 PO SCH (20:00)
[2022-05-05] MEDS: ATORVASTATIN 10 MG TAB PO SCH (20:00)
[2022-05-05] MEDS: ASPIRIN 81 MG PO SCH (20:00)
[2022-05-05] MEDS: FERROUS SULFATE 325 MG TAB PO SCH (20:00)
[2022-05-05] MEDS: ASCORBIC ACID 500 MG TAB PO SCH (20:01)
[2022-05-05] MEDS: CALCIUM CARBONATE 500 MG CHEWABLE PO SCH (20:01)
[2022-05-05] MEDS: ALPRAZolam 0.25 MG TAB PO PRN (22:49)
[2022-05-06] MEDS: PIPERACILLIN-TAZOBACTAM 3.375 GM in SODIUM CHLORIDE 0.9% 100 ML IVPB SCH ×2 (03:27→12:53)
[2022-05-06 07:37] VITALS: BP 111/66; PULSE 76; RESP 17; TEMP 97.4
[2022-05-06] MEDS: ENOXAPARIN 40 MG/0.4 ML SYRINGE SQ SCH (07:56)
[2022-05-06] MEDS: POTASSIUM CHLORIDE ER 20 MEQ TAB.ER PO SCH ×2 (07:56→09:39)
[2022-05-06 11:21] LABS: HCT 38.2 % (34.0-46.0); HGB 12.4 gm/dL (11.4-16.0); MCH 31.1 pg (25.0-35.0); MCHC 32.5 g/dL (31.0-37.0); MCV 95.7 fL (80.0-100.0); Platelet Count 389 k/uL (150-450); RDW 13.5 % (11.5-15.5); WBC 13.6 k/uL (3.8-10.6)
[2022-05-06 11:26] LABS: ALT 57 U/L (4-34); AST 48 U/L (14-36); African American GFR (CKD) >90 (>60 ml/min/1.73 sqM); Albumin 2.9 g/dL (3.5-5.0); Albumin/Globulin Ratio 1.1; Alkaline Phosphatase 144 U/L (38-126); Anion Gap 5 mmol/L; Blood Urea Nitrogen 7 mg/dL (7-17); Calcium 8.4 mg/dL (8.4-10.2); Carbon Dioxide 27 mmol/L (22-30); Chloride 103 mmol/L (98-107); Globulin 2.6 g/dL; Glucose 88 mg/dL (74-99); Non-African American GFR(CKD) 84 (>60 ml/min/1.73 sqM); Potassium 3.6 mmol/L (3.5-5.1); Sodium 135 mmol/L (137-145); Total Bilirubin 0.6 mg/dL (0.2-1.3); Total Protein 5.5 g/dL (6.3-8.2)
--- NOTE | 2022-05-06 11:48 | P.PN ---
Subjective Progress Note Date: 05/06/22 Principal diagnosis: Acute cholecystitis Patient doing well today. No significant pain at this time. Tolerating diet. Labs noted. She would like to go home. Objective - Vital Signs Vital signs: Vital Signs Temp 97.4 F L 05/06/22 07:36 Pulse 76 05/06/22 07:36 Resp 17 05/06/22 07:36 BP 111/66 05/06/22 07:36 Pulse Ox 95 05/06/22 07:36 FiO2 Intake & Output 05/05/22 05/06/22 05/06/22 18:59 06:59 18:59 Intake Total 400 Output Total 5 Balance 395 Intake: IV 400 Output: Estimated Blood Loss 5 Other: Voiding Method Toilet # Voids 2 1 - Exam Abdomen: Soft, nondistended, incisions clean and dry, minimal tenderness - Labs CBC & Chem 7: 05/06/22 10:36 05/06/22 10:36 Labs: Abnormal Lab Results - Last 24 Hours (Table) 05/05/22 05/06/22 05/06/22 Range/Units 18:33 06:45 10:36 WBC (3.8-10.6) k/uL Sodium 135 L (137-145) mmol/L Potassium 2.9 L 3.1 L (3.5-5.1) mmol/L AST 48 H (14-36) U/L ALT 57 H (4-34) U/L Alkaline Phosphatase 144 H (38-126) U/L Total Protein 5.5 L (6.3-8.2) g/dL Albumin 2.9 L (3.5-5.0) g/dL 05/06/22 Range/Units 10:36 WBC 13.6 H (3.8-10.6) k/uL Sodium (137-145) mmol/L Potassium (3.5-5.1) mmol/L AST (14-36) U/L ALT (4-34) U/L Alkaline Phosphatase (38-126) U/L Total Protein (6.3-8.2) g/dL Albumin (3.5-5.0) g/dL Microbiology - Last 24 Hours (Table) 04/30/22 13:30 Blood Culture - Preliminary Blood No Growth after 120 hours 04/30/22 13:15 Blood Culture - Preliminary Blood No Growth after 120 hours Assessment and Plan (1) Acute cholecystitis due to biliary calculus Narrative/Plan: Patient doing well at this time. Continue advancing diet as tolerated. May discharge from our point of view. Prescription provided. Follow-up one week. Current Visit: Yes Status: Acute Code(s): K80.00 - CALCULUS OF GALLBLADDER W ACUTE CHOLECYST W/O OBSTRUCTION SNOMED Code(s): 14421012987307
[2022-05-06 12:19] LABS: Band Neutrophils % 1 %; Basophils # (M) 0.27 k/uL (0-0.2); Eosinophils # (M) 0.27 k/uL (0-0.7); Lymphocytes # (M) 2.99 k/uL (1.0-4.8); Metamyelocytes # (M) 0.14 k/uL (0); Metamyelocytes % 1 %; Monocytes # (M) 1.22 k/uL (0-1.0); Myelocytes # (M) 0.14 k/uL (0); Myelocytes % 1 %; Neutrophils % (M) 64 %; Nucleated Red Blood Cells 0 /100 WBC (0-0); Total Cells Counted 200
[2022-05-06 12:22] LABS: RBC Morphology Normal
--- NOTE | 2022-05-13 22:46 | P.PN ---
Subjective Progress Note Date: 05/04/22 Principal diagnosis: Leukocytosis and cholecystitis Patient is 87-year-old female presenting to the hospital with acute abdominal pain nausea vomiting patient has been diagnosed with acute cholecystitis concerning for choledocholithiasis patient is status post ERCP, CT abdominal pelvis and ultrasound was suspicious for cholecystitis but no gallstones. on today's evaluation that is 05/04/2022, the patient continues to be afebrile, the patient denies abdominal pain , patient denies nausea no vomiting no chest pain shortness of breath or cough and no diarrhea Objective - Vital Signs Vital signs: Vital Signs Temp 98.6 F 05/04/22 14:00 Pulse 84 05/04/22 14:00 Resp 18 05/04/22 14:00 BP 117/72 05/04/22 14:00 Pulse Ox 95 05/04/22 14:00 FiO2 Intake & Output 05/03/22 05/04/22 05/04/22 18:59 06:59 18:59 Weight 55.792 kg Other: Voiding Method Toilet # Voids 3 4 - Exam GENERAL DESCRIPTION: An elderly female lying in bed in no distress RESPIRATORY SYSTEM: Unlabored breathing , decreased breath sounds at bases HEART: S1 S2 regular rate and rhythm , ABDOMEN: Soft , no tenderness EXTREMITIES: No edema feet - Labs CBC & Chem 7: 05/06/22 10:36 05/06/22 10:36 Labs: Microbiology - Last 24 Hours (Table) 04/30/22 13:30 Blood Culture - Preliminary Blood No Growth after 96 hours 04/30/22 13:15 Blood Culture - Preliminary Blood No Growth after 96 hours Assessment and Plan (1) Leukocytosis Status: Acute Code(s): D72.829 - ELEVATED WHITE BLOOD CELL COUNT, UNSPECIFIED SNOMED Code(s): 673017188 (2) Cholecystitis Status: Acute Code(s): K81.9 - CHOLECYSTITIS, UNSPECIFIED SNOMED Code(s): 62002906 Plan: 1patient presented to hospital with right upper quadrant pain in this patient has been diagnosed with choledocholithiasis and cholecystitis in this patient who is status post ERCP no mention of any stone patient did have a elevated white count and low-grade fever likely component of sepsis secondary to the enteric gram-negative francis. 2patient has shown clinical improvement and the white count has improved, patient to continue with Zosyn 3.375 g every 8 hours with possible plan for cholecystectomy tomorrow per surgery
--- NOTE | 2022-05-13 22:48 | P.PN ---
Subjective Progress Note Date: 05/05/22 Principal diagnosis: Leukocytosis and cholecystitis Patient is 87-year-old female presenting to the hospital with acute abdominal pain nausea vomiting patient has been diagnosed with acute cholecystitis concerning for choledocholithiasis patient is status post ERCP, CT abdominal pelvis and ultrasound was suspicious for cholecystitis but no gallstones. Patient is scheduled for cholecystectomy this afternoon on today's evaluation that is 05/05/2022, the patient denies any fever or any chills, the patient denies abdominal pain , patient denies nausea no vomiting, t he patient denies chest pain shortness of breath or cough and no diarrhea Objective - Vital Signs Vital signs: Vital Signs Temp 98 F 05/05/22 12:24 Pulse 95 05/05/22 12:24 Resp 16 05/05/22 12:24 BP 156/73 05/05/22 12:24 Pulse Ox 99 05/05/22 12:24 FiO2 Intake & Output 05/04/22 05/05/22 05/05/22 18:59 06:59 18:59 Weight 55.792 kg Other: # Voids 4 1 # Bowel Movements 2 - Exam GENERAL DESCRIPTION: An elderly female lying in bed in no distress RESPIRATORY SYSTEM: Unlabored breathing , decreased breath sounds at bases HEART: S1 S2 regular rate and rhythm , ABDOMEN: Soft , no tenderness EXTREMITIES: No edema feet - Labs CBC & Chem 7: 05/06/22 10:36 05/06/22 10:36 Labs: Abnormal Lab Results - Last 24 Hours (Table) 05/02/22 05/05/22 05/05/22 Range/Units 06:39 06:28 06:28 Lymphocytes # (Manual) 0.80 L (1.0-4.8) k/uL Metamyelocytes # (Man) 0.32 H (0) k/uL Myelocytes # (Manual) 0.16 H (0) k/uL Potassium 3.2 L (3.5-5.1) mmol/L BUN 3 L (7-17) mg/dL Creatinine 0.40 L (0.52-1.04) mg/dL Glucose 39 L* 116 H (70-110) mg/dL Calcium 8.2 L (8.4-10.2) mg/dL AST 46 H (14-36) U/L ALT 57 H (4-34) U/L Alkaline Phosphatase 169 H (38-126) U/L Total Protein 5.5 L (6.3-8.2) g/dL Albumin 2.9 L (3.5-5.0) g/dL Microbiology - Last 24 Hours (Table) 04/30/22 13:30 Blood Culture - Preliminary Blood No Growth after 96 hours 04/30/22 13:15 Blood Culture - Preliminary Blood No Growth after 96 hours Assessment and Plan (1) Leukocytosis Status: Acute Code(s): D72.829 - ELEVATED WHITE BLOOD CELL COUNT, UNSPECIFIED SNOMED Code(s): 062312304 (2) Cholecystitis Status: Acute Code(s): K81.9 - CHOLECYSTITIS, UNSPECIFIED SNOMED Code(s): 21736861 Plan: 1patient presented to hospital with right upper quadrant pain in this patient has been diagnosed with choledocholithiasis and cholecystitis in this patient who is status post ERCP no mention of any stone patient did have a elevated white count and low-grade fever likely component of sepsis secondary to the enteric gram-negative francis. 2patient has shown clinical improvement and is scheduled for cholecystectomy this afternoon, patient to continue with the Zosyn and monitored clinical course closely Time with Patient: Less than 30
--- NOTE | 2022-05-13 22:49 | P.PN ---
Subjective Progress Note Date: 05/06/22 Principal diagnosis: Leukocytosis and cholecystitis Patient is 87-year-old female presenting to the hospital with acute abdominal pain nausea vomiting patient has been diagnosed with acute cholecystitis concerning for choledocholithiasis patient is status post ERCP, CT abdominal pelvis and ultrasound was suspicious for cholecystitis but no gallstones. Patient is status post cholecystectomy completed 05/05/2022 on today's evaluation that is 05/06/2022, the patient remains to be afebrile, the patient denies nausea no vomiting, abdominal pain is currently controlled, the patient denies chest pain shortness of breath or cough and no diarrhea Objective - Vital Signs Vital signs: Vital Signs Temp 97.4 F L 05/06/22 07:36 Pulse 76 05/06/22 07:36 Resp 17 05/06/22 07:36 BP 111/66 05/06/22 07:36 Pulse Ox 95 05/06/22 07:36 FiO2 Intake & Output 05/05/22 05/06/22 05/06/22 18:59 06:59 18:59 Intake Total 400 Output Total 5 Balance 395 Intake: IV 400 Output: Estimated Blood Loss 5 Other: Voiding Method Toilet # Voids 2 1 - Exam GENERAL DESCRIPTION: An elderly female lying in bed in no distress RESPIRATORY SYSTEM: Unlabored breathing , decreased breath sounds at bases HEART: S1 S2 regular rate and rhythm , ABDOMEN: Soft , no tenderness EXTREMITIES: No edema feet - Labs CBC & Chem 7: 05/06/22 10:36 05/06/22 10:36 Labs: Abnormal Lab Results - Last 24 Hours (Table) 05/05/22 05/06/22 05/06/22 Range/Units 18:33 06:45 10:36 WBC (3.8-10.6) k/uL Neutrophils # (Manual) (1.3-7.7) k/uL Monocytes # (Manual) (0-1.0) k/uL Basophils # (Manual) (0-0.2) k/uL Metamyelocytes # (Man) (0) k/uL Myelocytes # (Manual) (0) k/uL Sodium 135 L (137-145) mmol/L Potassium 2.9 L 3.1 L (3.5-5.1) mmol/L AST 48 H (14-36) U/L ALT 57 H (4-34) U/L Alkaline Phosphatase 144 H (38-126) U/L Total Protein 5.5 L (6.3-8.2) g/dL Albumin 2.9 L (3.5-5.0) g/dL 05/06/22 Range/Units 10:36 WBC 13.6 H (3.8-10.6) k/uL Neutrophils # (Manual) 8.80 H (1.3-7.7) k/uL Monocytes # (Manual) 1.22 H (0-1.0) k/uL Basophils # (Manual) 0.27 H (0-0.2) k/uL Metamyelocytes # (Man) 0.14 H (0) k/uL Myelocytes # (Manual) 0.14 H (0) k/uL Sodium (137-145) mmol/L Potassium (3.5-5.1) mmol/L AST (14-36) U/L ALT (4-34) U/L Alkaline Phosphatase (38-126) U/L Total Protein (6.3-8.2) g/dL Albumin (3.5-5.0) g/dL Microbiology - Last 24 Hours (Table) 04/30/22 13:30 Blood Culture - Preliminary Blood No Growth after 120 hours 04/30/22 13:15 Blood Culture - Preliminary Blood No Growth after 120 hours Assessment and Plan (1) Leukocytosis Status: Acute Code(s): D72.829 - ELEVATED WHITE BLOOD CELL COUNT, UNSPECIFIED SNOMED Code(s): 629322507 (2) Cholecystitis Status: Acute Code(s): K81.9 - CHOLECYSTITIS, UNSPECIFIED SNOMED Code(s): 7 [id number] Plan: 1patient presented to hospital with right upper quadrant pain in this patient has been diagnosed with choledocholithiasis and cholecystitis in this patient who is status post ERCP no mention of any stone patient did have a elevated white count and low-grade fever likely component of sepsis secondary to the enteric gram-negative francis. 2patient has shown clinical improvement and is status post cholecystectomy will be able to finish therapy with a short course of oral Ceftin and close outpatient follow-up Time with Patient: Less than 30
== END 2022-05-06 14:03 | disposition home health service (06) | DRG 854 ==
LOC: EC 08:04 → 4SSUR 13:23
PROVIDERS: ADMIT Internal Medicine; ATTEND Internal Medicine
PROC: 0F798ZZ Dilation of Common Bile Duct, Via Natural or Artificial Opening Endoscopic (ICD-10-PCS; 2022-05-01 07:30)
PROC: 0FT44ZZ Resection of Gallbladder, Percutaneous Endoscopic Approach (ICD-10-PCS; principal; 2022-05-05 13:16)
DX: A41.9 Sepsis, unspecified organism (principal); K80.42 Calculus of bile duct with acute cholecystitis without obstruction; K82.1 Hydrops of gallbladder; N39.0 Urinary tract infection, site not specified; E78.5 Hyperlipidemia, unspecified; E86.0 Dehydration; F41.9 Anxiety disorder, unspecified; I10 Essential (primary) hypertension; I27.20 Pulmonary hypertension, unspecified; K44.9 Diaphragmatic hernia without obstruction or gangrene; R94.5 Abnormal results of liver function studies; Z79.82 Long term (current) use of aspirin; Z79.899 Other long term (current) drug therapy
CPT/HCPCS: 36415; 43262; 43264; 74177; 74181; 74330; 76705; 80053; 81001; 82150; 83605; 83690; 84132; 85025; 85610; 87040; 87086; 88304; 93005; 96361; 96374; 96375; 96376; 99285

== ENCOUNTER → 2022-08-27 | Outpatient (CLI) | payer MEDICARE, BC ==
--- NOTE | 2022-08-28 08:36 | MM ---
Reason for Exam: Screening (asymptomatic). Last mammogram was performed 1 year(s) and 4 month(s) ago. Patient History: Menarche at age 10. First Full-Term at age 18. Postmenopausal. Daughter had breast cancer, age 49. Prior Study Comparison: 11/04/2017 Left Diagnostic Mammogram, [facility]. 01/02/2019 Bilateral Screening Mammogram, [facility]. 04/16/2021 Bilateral Screening Mammogram, [facility]. Tissue Density: There are scattered fibroglandular densities. Findings: Analyzed By CAD. There is no suspicious group of microcalcifications or new suspicious mass in either breast. Overall Assessment: Negative, BI-RAD 1 Management: Screening Mammogram of both breasts in 1 year. A clinical breast exam by your physician is recommended on an annual basis and results should be correlated with mammographic findings. Electronically signed and approved by: Shant Gonzales M.D. Radiolog[facility]
== END | disposition home or self-care (01) ==
LOC: RADMAMWWP 16:08
PROVIDERS: ATTEND Family Medicine
DX: Z12.31 Encounter for screening mammogram for malignant neoplasm of breast (principal); Z78.0 Asymptomatic menopausal state; Z80.3 Family history of malignant neoplasm of breast
CPT/HCPCS: 77063; 77067